=== PATIENT | male | born 1980 | race Two or more races ===

== ENCOUNTER 2019-09-21 21:49 | Inpatient (IN) | payer MEDICAID ==
[~2019-09-21] VITALS: Ht 157.5 cm; Wt 77.6 kg
[2019-09-21] MEDS ORDERED: IBUPROFEN600 M1 ORAL (22:09)
[2019-09-21] MEDS ORDERED: BACTRIM-DS1 EA ORAL (22:09)
--- NOTE | 2019-09-21 22:12 | NUR ---
ED Nurse Note: Pt ambulated to ED from home, pt c/o pain in R buttock r/t abcess, pt was seen yesterday as well as 3 days ago and he had a I&D. Pt states pain meds are ineffective. VSS, ERMD at bedside.
[2019-09-21 22:13] VITALS: BP 106/63
[2019-09-21] MEDS ORDERED: Piperacillin/Tazobactam 3.375 GM in NS 110 ML IVPB ONE (22:15)
[2019-09-21] MEDS ORDERED: Omnipaque-300 100ml vial INJ ONE (22:15)
[2019-09-21] MEDS ORDERED: Vancomycin 1.5 GM in NS 275 ML IVPB ONE (22:15)
[2019-09-21] MEDS ORDERED: Lidocaine 1% Plain 30 ml INJ ONE ×2 (22:21→22:30)
[2019-09-21] MEDS ORDERED: HYDROmorphone 1mg/ml Carpuject ONE (22:34)
[2019-09-21] MEDS ORDERED: HYDROmorphone 1mg/ml Carpuject IVP ONE (22:45)
[2019-09-21 22:48] LABS: HEMATOCRIT 43.3 % (42.0-52.0); HEMOGLOBIN 14.3 G/DL (14.2-18.0); MEAN CORPUSCULAR VOLUME 96 FL (80-99); PLATELET COUNT 167 K/UL (150-450); RED BLOOD COUNT 4.53 M/UL (4.70-6.10)
[2019-09-21 22:50] LABS: WHITE BLOOD COUNT 24.9 K/UL (4.8-10.8)
--- NOTE | 2019-09-21 22:50 | Emergency Room Report ---
History of Present Illness General Chief Complaint: Pain Source: Patient Present Illness HPI This is a 39-year-old male with no past medical history who presents with chief complaint of right buttock pain. He had pain and swelling in that area for 6-7 days now. He went to the clinic 3 times. Initially they denied in place him on antibiotics. He came back on Wednesday and got a shot of antibiotics and place him on another antibiotics. Came back today and they did another small I&D. Now he is currently taking clindamycin and Bactrim. Because it got worse he came in. He said the redness and swelling extending to the scrotum area. Very painful to walk. Pain is 9 out of 10. Worse with walking. Better with rest. Denies any fever or chills. He said they got small amount of pus with a did an I&D. He denies any other complaint. Never had this problem before. Allergies: Coded Allergies: No Known Allergies (Unverified , 09/21/19) COVID-19 Screening Contact w/high risk pt: No Recent Travel to affected area: No Experienced COVID-19 symptoms?: No Patient History Past Medical History: none, see triage record, old chart reviewed Past Surgical History: none Pertinent Family History: none Social History: Denies: smoking Immunizations: other Reviewed Nursing Documentation: PMH: Agreed; PSxH: Agreed Nursing Documentation-PMH Past Medical History: No Stated History Review of Systems Eye: Denies: eye pain, blurred vision ENT: Denies: ear pain, nose congestion, throat swelling Respiratory: Denies: cough, shortness of breath Cardiovascular: Denies: chest pain, palpitations Gastrointestinal: Denies: abdominal pain, diarrhea, nausea, vomiting Musculoskeletal: Denies: back pain, joint pain Skin: Denies: rash Neurological: Denies: headache, numbness Endocrine: Denies: increased thirst, increased urine Hematologic/Lymphatic: Denies: easy bruising All Other Systems: negative except mentioned in HPI Physical Exam Vital Signs Date Time Temp Pulse Resp B/P (MAP) Pulse Ox O2 Delivery O2 Flow Rate FiO2 09/21/19 22:00 98.2 91 18 106/63 (77) 96 Room Air Vitals normal Sp02 EP Interpretation: reviewed, normal General Appearance: well appearing, no apparent distress, alert Head: normocephalic, atraumatic Eyes: bilateral eye PERRL, bilateral eye EOMI ENT: hearing grossly normal, normal pharynx Neck: full range of motion, supple, no meningismus Respiratory: chest non-tender, lungs clear, normal breath sounds Cardiovascular #1: regular rate, rhythm, no murmur Gastrointestinal: normal bowel sounds, non tender, no mass, no organomegaly, no bruit, non-distended Genitourinary: other - Right buttock: There is induration and edema to the right buttock medially. This induration and erythema extended to the perineum and scrotal area. Warm to the touch. There is a 1 cm I&D site proximally. There is also a small puncture wound from a scalpel inferiorly about 6-7 cm. Musculoskeletal: back normal, normal range of motion, gait/station normal Psychiatric: mood/affect normal Procedures Incision and Drainage Incision and Drainage : Consent: Verbal Site: Right buttock Blade Size: 11 I & D Procedure: betadine prep, gauze wick placed Wound Location: other - Buttock Irrigated w/ Saline (ccs): 1000 Anesthesia: 1% Lidocaine Volume Anesthetic (ccs): 10 Patient Tolerated: Well Complications: None Progress Local area cleaned with Betadine. Local anesthetic of 1% lidocaine without epinephrine. I made to incision over the old I&D site. I extended longer and deeper. There was copious amount of pus expressed. Loculated area broken up. Wound was irrigated copiously. It was suction and then packed with iodoform gauze. Patient tolerated procedure without any complication. Medical Decision Making Diagnostic Impression: Primary Impression: Abscess of buttock, right Additional Impression: Sepsis Qualified Codes: A41.9 - Sepsis, unspecified organism ER Course Patient presents with buttock abscess that extends to the perineum and scrotal area. There is no crepitance. No fever or chills. I suspect that infection worse because it was not fully I&D. There was no crepitance to indicate necrotizing fasciitis. He has no history of diabetes in appearance does not appear to be Mary's disease. Since he failed outpatient antibiotics with 2 different antibiotics, will admit versus transfer for IV antibiotics. Zosyn and vancomycin given here. Patient approved for admission here. I discussed the case with Dr. Webster who will admit. CT/MRI/US Diagnostic Results CT/MRI/US Diagnostic Results : Imaging Test Ordered: CT pelvis with IV contrast Impression Read by radiologist. I also discussed the case with him. There is gas in the soft tissue of the perineal region of the right buttock area. It extends from the skin surface anteriorly and superiorly to the right hemiscrotum just lateral to the inguinal canal. There is approximately 2.9 x 4.2 x 2.7 fluid collection on the right lateral and inferior to the right testicle. Large amount of scrotal edema. Last Vital Signs Date Time Temp Pulse Resp B/P (MAP) Pulse Ox O2 Delivery O2 Flow Rate FiO2 09/21/19 22:13 98.2 18 106/63 96 Room Air 09/21/19 22:00 91 Status: improved Disposition: ADMITTED INPATIENT Condition: Serious Referrals: NOT CHOSEN CLYDE/,REFERRING (PCP) Yohannes Jackson MD Sep 21, 2019 22:50
[2019-09-21 22:57] LABS: ANION GAP 12 mmol/L (5-15); BLOOD UREA NITROGEN 22 mg/dL (7-18); CALCIUM 8.7 MG/DL (8.5-10.1); CARBON DIOXIDE 23 MMOL/L (21-32); CHLORIDE 101 MMOL/L (98-107); CREATININE 1.3 MG/DL (0.55-1.30); SODIUM 135 MMOL/L (136-145)
--- NOTE | 2019-09-21 23:12 | NUR ---
ED Nurse Note: Pt to CT
[2019-09-21] MEDS ORDERED: Morphine Sulfate 4mg/ml Inj (IV USE ONLY) IVP PRN (23:15)
--- NOTE | 2019-09-21 23:30 | NUR ---
ED Nurse Note: Pt back from CT, IV antibiotics infusing per order. Pt tolerated incision and draining by ERMD. wounds packed and covered with clean dresssing. Copious amount of pus drained, wound culture sent to lab
--- NOTE | 2019-09-21 23:41 | Diagnostic Imaging Report ---
Indication: Right buttock pain and swelling for 6 to 7 days Technique: Patient given oral contrast. IV administration nonionic contrast. Spiral acquisitions obtained through the pelvis. Multiplanar reconstructions generated. Total dose length product 323 mGycm. CTDIvol(s) 7 mGy. Dose reduction achieved using automated exposure control Comparison: none Findings: There is considerable edema of the skin of the scrotum. This also extends into the penile shaft. There is infiltration of the pubic and suprapubic subcutaneous fat as well. Numerous gas bubbles are seen within the perineum, extending from the scrotum and to the posterior perineum. There is likewise edema of the surrounding skin. No discrete fluid collections are demonstrated. Dense material is seen associated with the air bubbles in the posterior perineum. This may be packing material related to prior incision and drainage as this appears to be deep to a superficial skin defect. A few gas bubbles are seen in the bilateral gluteus cristiano musculature. The bones are unremarkable. The pelvic viscera are unremarkable. Impression: Considerable edema of the scrotal wall, penile shaft, and superficial perineum. Given stated clinical history, likely indicates cellulitis Considerable gas within the perineum and anterior inferior right pubic region. This may be related to prior incision and drainage, but given that it extends well beyond the area of apparent incision extent the possibility of infection with a gas-forming organism should also be considered. Bilateral gluteal gas bubbles. May be related to recent injections, but the possibility of infectious process in this location should also be considered. This agrees with the preliminary interpretation provided overnight by [facility]. The CT scanner at [facility] is accredited by the [employer] and the scans are performed using protocols designed to limit radiation exposure to as low as reasonably achievable to attain images of sufficient resolution adequate for diagnostic evaluation.
--- NOTE | 2019-09-22 00:20 | NUR ---
TRANSFER TO FLOOR: Patient transferred to as ordered, per Dr Webster. Report given to SAGE Jett. Belongings and medications given to . Family and or S/O informed of transfer.
[2019-09-22 00:40] VITALS: BP 96/59
--- NOTE | 2019-09-22 00:40 | NUR ---
NURSE NOTES: Patient admitted from ER via gurney. In room air. Belongings verified at bedside. No complaints of pain at this time. Right buttock I&D noted, gauze reinforced. Oriented to room and unit, call light provided. Returned demo to use call light. Needs attended. Will continue plan of care.
[2019-09-22] MEDS ORDERED: Nitroglycerin Subl 0.4mg tab SL PRN (00:45)
[2019-09-22] MEDS ORDERED: Miralax 17gm pkt ORAL PRN (00:45)
[2019-09-22] MEDS ORDERED: Albuterol/Ipratropium 3ml neb HHN PRN (00:45)
[2019-09-22] MEDS ORDERED: CLINDAMYCIN HC150 MG ORAL (01:00)
--- NOTE | 2019-09-22 03:30 | NUR ---
HAND-OFF: Report given to Neal CAZARES.
--- NOTE | 2019-09-22 03:31 | NUR ---
NURSE NOTES: Receive pt in the bed in stable condition;awake ,a&o x4, verbal, no complain of pain, no sob ,and vitals are stable. Pt is in room air, no fall and aspiration risk. Bed in the lower position and locked. Call light within reach. We will keep monitoring.
[2019-09-22 04:00] VITALS: BP 94/53
--- NOTE | 2019-09-22 07:15 | NUR ---
HAND-OFF: Report given to SAGE ochoa.
--- NOTE | 2019-09-22 07:20 | NUR ---
NURSE NOTES: Received report from SAGE Moore and preceptor SAGE Sandoval. Patient A&Ox4, in bed eating breakfast. On room air, no signs of distress or labored breathing. IV intact, patent, and saline locked. Denies pain at this time. Bed in lowest position with call light in reach. Will continue with plan of care.
[2019-09-22 08:00] VITALS: BP 102/65
[2019-09-22] MEDS: Cefepime HCl 2 GM in D5W 110 ML IV SCH ×2 (09:58→21:05)
[2019-09-22] MEDS: Heparin 5000 units/ml inj SUBQ SCH ×2 (09:59→21:00)
[2019-09-22] MEDS: Vancomycin 750mg/NS 275ml IVPB SCH ×4 (10:52→21:42)
[2019-09-22 12:00] VITALS: BP 102/66
--- NOTE | 2019-09-22 13:27 | Consultation ---
History of Present Illness General Date patient seen: Sep 22, 2019 Chief Complaint: Pain Present Illness HPI 39-year-old male with no past medical history who presents with chief complaint of right buttock pain. He had a small I&D at an urgent care. He presented to ER because it got worse and the redness and swelling extending to the scrotum area. Very painful to walk. Denies any fever or chills. He said they got small amount of pus with a did an I&D. He had leukocytosis and got admitted for further treatment. Allergies: Coded Allergies: No Known Allergies (Unverified , 09/21/19) Medication History Scheduled Clindamycin Hcl* (Clindamycin Hcl*), 2 TAB ORAL Q12HR, (Reported) Ibuprofen* (Motrin*), 600 MG ORAL Q6H, (Reported) Trimethoprim/Sulfamethoxazole (Bactrim Ds Tablet), 1 TAB ORAL TWICE A DAY, ( Reported) Patient History Healthcare decision maker Resuscitation status Full Code Advanced Directive on File Review of Systems All Other Systems: negative except mentioned in HPI Physical Exam General Appearance: WD/WN, no apparent distress Lines, tubes and drains: peripheral HEENT: atraumatic Neck: non-tender, supple Respiratory/Chest: chest wall non-tender, normal breath sounds Cardiovascular/Chest: normal peripheral pulses, regular rhythm Abdomen: normal bowel sounds, non tender Extremities: normal range of motion Last 24 Hour Vital Signs Date Time Temp Pulse Resp B/P (MAP) Pulse Ox O2 Delivery O2 Flow Rate FiO2 09/22/19 12:00 98.5 78 20 102/66 (78) 96 09/22/19 11:56 78 18 97 Room Air 21 09/22/19 09:00 Room Air 09/22/19 08:00 98.3 87 19 102/65 (77) 98 09/22/19 04:00 98.4 78 18 94/53 (67) 96 09/22/19 01:12 Room Air 09/22/19 00:40 98.0 78 18 96/59 (71) 96 09/22/19 00:20 98.2 18 106/63 96 Room Air 09/21/19 22:13 98.2 18 106/63 96 Room Air 09/21/19 22:00 98.2 91 18 106/63 (77) 96 Room Air Intake and Output 09/21/19 09/22/19 19:00 07:00 Intake Total 335 ml Output Total 150 ml Balance 185 ml Intake Oral 60 ml IV Total 275 ml Output Urine Total 150 ml # Voids 1 Laboratory Tests Test 09/21/19 22:33 White Blood Count 24.9 K/UL (4.8-10.8) *H Red Blood Count 4.53 M/UL (4.70-6.10) L Hemoglobin 14.3 G/DL (14.2-18.0) Hematocrit 43.3 % (42.0-52.0) Mean Corpuscular Volume 96 FL (80-99) Mean Corpuscular Hemoglobin 31.5 PG (27.0-31.0) H Mean Corpuscular Hemoglobin Concent 32.9 G/DL (32.0-36.0) Red Cell Distribution Width 12.0 % (11.6-14.8) Platelet Count 167 K/UL (150-450) Mean Platelet Volume 10.8 FL (6.5-10.1) H Neutrophils (%) (Auto) % (45.0-75.0) Lymphocytes (%) (Auto) % (20.0-45.0) Monocytes (%) (Auto) % (1.0-10.0) Eosinophils (%) (Auto) % (0.0-3.0) Basophils (%) (Auto) % (0.0-2.0) Neutrophils % (Manual) 86 % (45-75) H Lymphocytes % (Manual) 1 % (20-45) L Monocytes % (Manual) 5 % (1-10) Eosinophils % (Manual) 0 % (0-3) Basophils % (Manual) 0 % (0-2) Band Neutrophils 8 % (0-8) Platelet Estimate Decreased L Platelet Morphology Normal Red Blood Cell Morphology Normal Sodium Level 135 MMOL/L (136-145) L Potassium Level 4.0 MMOL/L (3.5-5.1) Chloride Level 101 MMOL/L (98-107) Carbon Dioxide Level 23 MMOL/L (21-32) Anion Gap 12 mmol/L (5-15) Blood Urea Nitrogen 22 mg/dL (7-18) H Creatinine 1.3 MG/DL (0.55-1.30) Estimat Glomerular Filtration Rate > 60 mL/min (>60) Glucose Level 184 MG/DL (74-106) H Calcium Level 8.7 MG/DL (8.5-10.1) Microbiology Date/Time Source Procedure Growth Status 09/21/19 22:33 Other(Specify in comment) Gram Stain - Final Resulted 09/21/19 22:33 Other(Specify in comment) Wound Culture Pending Resulted Height (Feet): 5 Height (Inches): 3.00 Weight (Pounds): 175 Medications Current Medications Medications (Trade) Dose Ordered Sig/Jasiel Route PRN Reason Start Time Stop Time Status Last Admin Dose Admin Acetaminophen (Tylenol) 650 mg Q4H PRN ORAL fever 09/22/19 00:45 10/22/19 00:44 09/22/19 09:57 Albuterol/ Ipratropium (Albuterol/ Ipratropium) 3 ml Q4H PRN HHN Shortness of Breath 09/22/19 00:45 09/27/19 00:44 Cefepime HCl 2 gm/ Dextrose 110 ml @ 220 mls/hr EVERY 12 HOURS IV 09/22/19 09:00 09/29/19 08:59 09/22/19 09:58 Dextrose (Dextrose 50%) 25 ml Q30M PRN IV Hypoglycemia 09/22/19 00:45 12/21/19 00:44 Dextrose (Dextrose 50%) 50 ml Q30M PRN IV Hypoglycemia 09/22/19 00:45 12/21/19 00:44 Heparin Sodium (Porcine) (Heparin 5000 units/ml) 5,000 units EVERY 12 HOURS SUBQ 09/22/19 09:00 11/06/19 08:59 09/22/19 09:59 Morphine Sulfate (Morphine Sulfate) 4 mg Q3H PRN IVP For Pain 09-2109/22/19 01:15 09/29/19 01:14 Nitroglycerin (Ntg) 0.4 mg Every 5 Minutes PRN SL Prn Chest Pain 09/22/19 00:45 10/22/19 00:44 Ondansetron HCl (Zofran) 4 mg Q6H PRN IVP Nausea & Vomiting 09/22/19 00:45 10/22/19 00:44 Polyethylene Glycol (Miralax) 17 gm DAILYPRN PRN ORAL Constipation 09/22/19 00:45 10/22/19 00:44 Temazepam (Restoril) 15 mg HSPRN PRN ORAL Insomnia 09/22/19 00:45 09/29/19 00:44 Vancomycin HCl (Vanco rx to dose) 1 ea DAILY PRN MISC per pharmacy 09/22/19 01:15 10/22/19 01:14 Vancomycin HCl 750 mg/Sodium Chloride 275 ml @ 183.333 mls/hr Q12H IVPB 09/22/19 10:00 09/27/19 09:59 09/22/19 10:52 Assessment/Plan Problem List: (1) Sepsis ICD Codes: A41.9 - Sepsis, unspecified organism SNOMED: 52820311 Qualifiers: Qualified Codes: A41.9 - Sepsis, unspecified organism (2) Abscess of buttock, right ICD Codes: L02.31 - Cutaneous abscess of buttock SNOMED: 15538215 Assessment/Plan: surgery and ID evaluation broad spectrum abx pain management dvt prophylaxis check labs daily Christiano Thomas MD Sep 22, 2019 13:27
--- NOTE | 2019-09-22 14:02 | NUR ---
CASE MANAGEMENT:INITIAL REVIEW 39 YR OLD MALE WALKED IN FROM HOME CC;PAIN SI;BUTTOCK ABSCESS. SEPSIS. 98.2 91 18 96/59 96% ON RA WBC 24.9 NA 135 BUN [address] ~ Considerable edema of the scrotal wall, penile shaft, and superficial perineum. Given stated clinical history, likely indicates cellulitis. Bilateral gluteal gas bubbles. May be related to recent injections, but the possibility of infectious process in this location should also be considered. IS;VANCOMYCIN IV ONCE ZOSYN IV ONCE ZOFRAN IV ONCE DILAUDID IV ONCE ADMITTED TO MED SURG @ 2302 ON 09/21/2019 MED SURG STATUS DCP;PATIENT IS FROM HOME
[2019-09-22] MEDS: metroNIDAZOLE 500mg tab ORAL SCH ×2 (15:01→21:05)
[2019-09-22 16:00] VITALS: BP 102/63
--- NOTE | 2019-09-22 16:31 | Consultation ---
History of Present Illness General Date patient seen: Sep 22, 2019 Reason for Hospitalization: Pain Present Illness HPI This is a 39-year-old male with no past medical history who presents with worsening scrotal perineal and buttock pain. Patient states initially began approximately a week ago and he went to outside clinic a few times for evaluation initially placed on antibiotics but continually worsening. Recently had a incision and drainage done at the clinic but felt it was adequate and therefore came to emergency department [facility] for evaluation as the edema swelling persistently got worse. Surgery called to evaluate. Patient noted to have leukocytosis, abnormal labs, pelvic CT as below. Patient seen, patient evaluated, chart reviewed Allergies: Coded Allergies: No Known Allergies (Unverified , 09/21/19) COVID-19 Screening Contact w/high risk pt: No Recent Travel to affected area: No Experienced COVID-19 symptoms?: No Medication History Scheduled Clindamycin Hcl* (Clindamycin Hcl*), 2 TAB ORAL Q12HR, (Reported) Ibuprofen* (Motrin*), 600 MG ORAL Q6H, (Reported) Trimethoprim/Sulfamethoxazole (Bactrim Ds Tablet), 1 TAB ORAL TWICE A DAY, ( Reported) Patient History History Provided By: Patient, Medical Record, PMD Healthcare decision maker Resuscitation status Full Code Advanced Directive on File Past Medical/Surgical History Past Medical/Surgical History: (1) Sepsis (2) Abscess of buttock, right Review of Systems Review of Symptoms General ROS: no weight loss or fever Psychological ROS: no depression or mood changes, no memory loss Ophthalmic ROS: no visual changes or eye irritation ENT ROS: no nasal congestion, hearing loss, dizziness Allergy and Immunology ROS: no allergic symptoms or urticaria Hematological and Lymphatic ROS: no swollen glands, unusual bleeding or bruising Endocrine ROS: no polyuria, polydipsia, weight changes, temperature intolerance Respiratory ROS: no cough, shortness of breath, or wheezing Cardiovascular ROS: no chest pain or dyspnea on exertion Gastrointestinal ROS: denies abdominal pain, bright red blood in stool. Buttock pain perineal pain Musculoskeletal ROS: no myalgias or arthralgias Neurological ROS: no TIA or stroke symptoms Dermatological ROS: no new or changing skin lesions, rashes or pruritis Physical Exam Physical Exam General appearance: alert, cooperative, no distress, appears stated age Head: Normocephalic, without obvious abnormality, atraumatic Eyes: conjunctivae/corneas clear. PERRL, EOM's intact. Fundi benign Throat: Lips, mucosa, and tongue normal. Teeth and gums normal Neck: supple, symmetrical, trachea midline, no adenopathy, thyroid: not enlarged, symmetric, no tenderness/mass/nodules, no carotid bruit and no JVD Lungs: clear to auscultation bilaterally Heart: regular rate and rhythm, S1, S2 normal, no murmur, click, rub or gallop Abdomen: soft, non-tender. Bowel sounds normal. No masses, no organomegaly Extremities: extremities normal, atraumatic, no cyanosis or edema Pulses: 2+ and symmetric Skin: Scrotal perineal edema with little bit of cellulitis right buttock I&D site noted packing still in place from prior I&D done at outside facility. Neurologic: Grossly normal Last 24 Hour Vital Signs Date Time Temp Pulse Resp B/P (MAP) Pulse Ox O2 Delivery O2 Flow Rate FiO2 09/22/19 12:00 98.5 78 20 102/66 (78) 96 09/22/19 11:56 78 18 97 Room Air 21 09/22/19 09:00 Room Air 09/22/19 08:00 98.3 87 19 102/65 (77) 98 09/22/19 04:00 98.4 78 18 94/53 (67) 96 09/22/19 01:12 Room Air 09/22/19 00:40 98.0 78 18 96/59 (71) 96 09/22/19 00:20 98.2 18 106/63 96 Room Air 09/21/19 22:13 98.2 18 106/63 96 Room Air 09/21/19 22:00 98.2 91 18 106/63 (77) 96 Room Air Intake and Output 09/21/19 09/22/19 19:00 07:00 Intake Total 335 ml Output Total 150 ml Balance 185 ml Intake Oral 60 ml IV Total 275 ml Output Urine Total 150 ml # Voids 1 Laboratory Tests Test 09/21/19 22:33 White Blood Count 24.9 K/UL (4.8-10.8) *H Red Blood Count 4.53 M/UL (4.70-6.10) L Hemoglobin 14.3 G/DL (14.2-18.0) Hematocrit 43.3 % (42.0-52.0) Mean Corpuscular Volume 96 FL (80-99) Mean Corpuscular Hemoglobin 31.5 PG (27.0-31.0) H Mean Corpuscular Hemoglobin Concent 32.9 G/DL (32.0-36.0) Red Cell Distribution Width 12.0 % (11.6-14.8) Platelet Count 167 K/UL (150-450) Mean Platelet Volume 10.8 FL (6.5-10.1) H Neutrophils (%) (Auto) % (45.0-75.0) Lymphocytes (%) (Auto) % (20.0-45.0) Monocytes (%) (Auto) % (1.0-10.0) Eosinophils (%) (Auto) % (0.0-3.0) Basophils (%) (Auto) % (0.0-2.0) Neutrophils % (Manual) 86 % (45-75) H Lymphocytes % (Manual) 1 % (20-45) L Monocytes % (Manual) 5 % (1-10) Eosinophils % (Manual) 0 % (0-3) Basophils % (Manual) 0 % (0-2) Band Neutrophils 8 % (0-8) Platelet Estimate Decreased L Platelet Morphology Normal Red Blood Cell Morphology Normal Sodium Level 135 MMOL/L (136-145) L Potassium Level 4.0 MMOL/L (3.5-5.1) Chloride Level 101 MMOL/L (98-107) Carbon Dioxide Level 23 MMOL/L (21-32) Anion Gap 12 mmol/L (5-15) Blood Urea Nitrogen 22 mg/dL (7-18) H Creatinine 1.3 MG/DL (0.55-1.30) Estimat Glomerular Filtration Rate > 60 mL/min (>60) Glucose Level 184 MG/DL (74-106) H Calcium Level 8.7 MG/DL (8.5-10.1) Microbiology Date/Time Source Procedure Growth Status 09/21/19 22:33 Other(Specify in comment) Gram Stain - Final Resulted 09/21/19 22:33 Other(Specify in comment) Wound Culture Pending Resulted Height (Feet): 5 Height (Inches): 3.00 Weight (Pounds): 175 Medications Current Medications Medications (Trade) Dose Ordered Sig/Jasiel Route PRN Reason Start Time Stop Time Status Last Admin Dose Admin Acetaminophen (Tylenol) 650 mg Q4H PRN ORAL fever 09/22/19 00:45 10/22/19 00:44 09/22/19 09:57 Albuterol/ Ipratropium (Albuterol/ Ipratropium) 3 ml Q4H PRN HHN Shortness of Breath 09/22/19 00:45 09/27/19 00:44 Cefepime HCl 2 gm/ Dextrose 110 ml @ 220 mls/hr EVERY 12 HOURS IV 09/22/19 09:00 09/29/19 08:59 09/22/19 09:58 Dextrose (Dextrose 50%) 25 ml Q30M PRN IV Hypoglycemia 09/22/19 00:45 12/21/19 00:44 Dextrose (Dextrose 50%) 50 ml Q30M PRN IV Hypoglycemia 09/22/19 00:45 12/21/19 00:44 Heparin Sodium (Porcine) (Heparin 5000 units/ml) 5,000 units EVERY 12 HOURS SUBQ 09/22/19 09:00 11/06/19 08:59 09/22/19 09:59 Metronidazole (Flagyl) 500 mg Q8HR ORAL 09/22/19 14:15 09/29/19 14:14 09/22/19 15:01 Morphine Sulfate (Morphine Sulfate) 4 mg Q3H PRN IVP For Pain 09-2109/22/19 01:15 09/29/19 01:14 Nitroglycerin (Ntg) 0.4 mg Every 5 Minutes PRN SL Prn Chest Pain 09/22/19 00:45 10/22/19 00:44 Ondansetron HCl (Zofran) 4 mg Q6H PRN IVP Nausea & Vomiting 09/22/19 00:45 10/22/19 00:44 Polyethylene Glycol (Miralax) 17 gm DAILYPRN PRN ORAL Constipation 09/22/19 00:45 10/22/19 00:44 Temazepam (Restoril) 15 mg HSPRN PRN ORAL Insomnia 09/22/19 00:45 09/29/19 00:44 Vancomycin HCl (Vanco rx to dose) 1 ea DAILY PRN MISC per pharmacy 09/22/19 01:15 10/22/19 01:14 Vancomycin HCl 750 mg/Sodium Chloride 275 ml @ 183.333 mls/hr Q12H IVPB 09/22/19 10:00 09/27/19 09:59 09/22/19 10:52 Assessment/Plan Problem List: (1) Sepsis Assessment & Plan: Patient presents with abnormal labs, leukocytosis, scrotal cellulitis perineal cellulitis active infection. On evaluation at bedside patient continues to have packing left from his I&D which was not removed or cared for since incision and drainage. He states is very painful feels are comfortable. Packing dressings were removed by myself. No purulent drainage noted. Some cellulitis and edema around the perineum noted. Likely infectious source is this buttock abscess that is now perineal cellulitis as well. The CT was reviewed and gas identified but this is not seem like a Mary's gangrene or other severe process as it seems like he had a perirectal abscess that was drained and adequately furthermore placed on care plan with packing and dressings which have not been completed since. Now it is worsened. Will need to monitor closely. IV antibiotics. IV fluids. Discussed care plan with patient. Unfortunately he failed outpatient management and now requires inpatient care plan. May proceed with a larger incision and drainage if does not improve over the next 24 hours. Will monitor closely. Thank you for let me participate in patient's care ICD Codes: A41.9 - Sepsis, unspecified organism SNOMED: [id number] Qualifiers: Qualified Codes: A41.9 - Sepsis, unspecified organism (2) Abscess of buttock, right Assessment & Plan: Findings: There is considerable edema of the skin of the scrotum. This also extends into the penile shaft. There is infiltration of the pubic and suprapubic subcutaneous fat as well. Numerous gas bubbles are seen within the perineum, extending from the scrotum and to the posterior perineum. There is likewise edema of the surrounding skin. No discrete fluid collections are demonstrated. Dense material is seen associated with the air bubbles in the posterior perineum. This may be packing material related to prior incision and drainage as this appears to be deep to a superficial skin defect. A few gas bubbles are seen in the bilateral gluteus cristiano musculature. The bones are unremarkable. The pelvic viscera are unremarkable. Impression: Considerable edema of the scrotal wall, penile shaft, and superficial perineum. Given stated clinical history, likely indicates cellulitis Considerable gas within the perineum and anterior inferior right pubic region. This may be related to prior incision and drainage, but given that it extends well beyond the area of apparent incision extent the possibility of infection with a gas- forming organism should also be considered. Bilateral gluteal gas bubbles. May be related to recent injections, but the possibility of infectious process in this location should also be considered. ICD Codes: L02.31 - Cutaneous abscess of buttock SNOMED: [id number] Jerson Owens Sep 22, 2019 16:31
[2019-09-22] MEDS: Morphine Sulfate 4mg/ml Inj (IV USE ONLY) IVP PRN (18:21)
--- NOTE | 2019-09-22 19:20 | NUR ---
NURSE NOTES: Received patient on bed, awake and verbally responsive. respirations even and unlabored. no sob. with iv line on the right ac , saline lock. with urinal on the bedside. with complaints of discomfort on the surgical site.per patient" it is tolerable and refused to have pain medicine". bed locked and in lowest position. call light and light button within easy reach. reiterated to ask for assistance. will continue plan of care.
--- NOTE | 2019-09-22 19:40 | NUR ---
HAND-OFF: Report given to Anjali Sherman RN. Rounds done.
[2019-09-22 20:00] VITALS: BP 112/65
--- NOTE | 2019-09-22 22:38 | History & Physical ---
History and Physical History & Physicial Sheldon Webster MD Sep 22, 2019 22:38
[2019-09-23] VITALS: BP 109/76
[2019-09-23] MEDS: Morphine Sulfate 4mg/ml Inj (IV USE ONLY) IVP PRN ×3 (00:21→17:28)
[2019-09-23] MEDS ORDERED: Vancomycin 1 GM in D5W 275 ML IV SCH (00:30)
[2019-09-23 04:00] VITALS: BP 110/76
--- NOTE | 2019-09-23 04:30 | History and Physical Report ---
DATE OF ADMISSION: 09/21/2019 CHIEF COMPLAINT: Right buttock abscess. HISTORY OF PRESENT ILLNESS: A 39-year-old gentleman, denies any past medical history and past surgical history, who presents to the hospital complaining of worsening of the scrotum and the perianal pain. The patient initially about a week ago went to the outside clinic a few times for evaluation. Initially placed on antibiotics or antibiotic. However, his symptoms got progressively worsening and he continued to have worsening of pain on the buttock area, had an incision and drainage at the clinic, but they felt that it was not adequate and subsequently the patient was advised to come to the emergency department. Shortly after initial evaluation in the emergency, the patient was noted to be leukocytosis with WBC of 24.9 and subsequently, the patient was admitted to the hospital with right buttock abscess as well as perineum infection. PAST MEDICAL/PAST SURGICAL HISTORY: None. MEDICATIONS: At home significant for clindamycin, ibuprofen and Bactrim. ALLERGIES: No known drug allergies. SOCIAL HISTORY: The patient socially drinks. Occasionally smokes. Denies any substance abuse. 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 FAMILY HISTORY: Noncontributory. REVIEW OF SYSTEMS: Mostly as above. Denies any dysuria, frequency, hematuria. Denies any hemoptysis or hematochezia. Denies any bright red blood per rectum. PHYSICAL EXAMINATION: VITAL SIGNS: On admission, temperature 98.2, pulse of 91, respirations 18, and blood pressure 106/63. GENERAL: The patient is awake and responsive, in no acute distress. HEAD AND NECK EXAMINATION: Pupils are equal and reactive to light. Extraocular movements intact. Neck was supple. No JVD. LUNGS: Clear. No wheezing or rales. HEART: S1, S2. Regular rhythm. No gallops. ABDOMEN: Soft and nontender. Mildly obese. EXTREMITIES: No cyanosis, clubbing, or edema. PELVIC: The patient has right buttock area drainage abscess as well as scrotum was erythema and edematous. NEUROLOGIC: SEWER TAPPER II through XII are grossly normal. The patient moving all extremities. Gait is intact. LABORATORY DATA: On admission from the emergency department, WBC of 2.24, hemoglobin of 14, hematocrit 43, and platelets is 167. Sodium 135, potassium 4.0, chloride 101, bicarb 23, BUN 22, creatinine 1.3, glucose is 184, calcium is 8.7. Pelvic CT showed that the patient has chronic severe edema of the scrotum wall, penile shaft and superficial perineum given the date, clinical history like to be indicated abscess cellulitis consistent with gas within the perineum and anterior-inferior right pubic region. These may be related to the prior incision and drainage, but given that the extent of the well beyond the area of planned incision, extended the possibility of infection with a gas for maintaining organisms, bilateral gluteal gas bubble and may be related to recent incision. ASSESSMENT: Right buttock abscess and perineum cellulitis. PLAN: Admit the patient to medical floor. We will follow up with the cultures, broad-spectrum antibiotic with vancomycin, cefepime and Flagyl. Remarkable for cultures and laboratory in the morning. Dr. Thomas, Pulmonary/Critical Care and Dr. Owens consultation from surgery. Code status is Full Code. DVT prophylaxis and SCD. Sheldon Webster M.D. DR: Letty JOB#: [id number] CC:
[2019-09-23] MEDS: metroNIDAZOLE 500mg tab ORAL SCH ×3 (05:57→22:00)
--- NOTE | 2019-09-23 07:58 | NUR ---
NURSE NOTES: Handoff received from MADDISON CAZARES. Patient is awake and alert, no distress noted. Breathing is even and unlabored on room air. Patient reports 0/10 pain. Right AC IV is patent and asymptomatic. Right buttock dressing changed 09/[address] Owens. Bed is low and locked, side rails up x2, call light is within reach.
[2019-09-23 07:59] LABS: HEMATOCRIT 39.4 % (42.0-52.0); HEMOGLOBIN 13.5 G/DL (14.2-18.0); MEAN CORPUSCULAR VOLUME 91 FL (80-99); PLATELET COUNT 200 K/UL (150-450); RED BLOOD COUNT 4.31 M/UL (4.70-6.10); RED CELL DISTRIBUTION WIDTH 11.4 % (11.6-14.8)
[2019-09-23 08:00] VITALS: BP 104/60
--- NOTE | 2019-09-23 08:00 | NUR ---
NURSE NOTES: Received call from lab stating that patient's WBC is 37.8. Notified Dr. Owens and awaiting new orders.
[2019-09-23 08:04] LABS: WHITE BLOOD COUNT 37.8 K/UL (4.8-10.8)
[2019-09-23 08:19] LABS: PHOSPHORUS 3.8 MG/DL (2.5-4.9)
--- NOTE | 2019-09-23 08:28 | NUR ---
NURSE NOTES: Patient left for CT in stable condition.
[2019-09-23 08:31] LABS: INR 0.9 (0.9-1.1)
[2019-09-23 08:43] LABS: ALANINE AMINOTRANSFERASE 157 U/L (12-78); ALBUMIN 2.2 G/DL (3.4-5.0); ALBUMIN/GLOBULIN RATIO 0.5 (1.0-2.7); ALKALINE PHOSPHATASE 240 U/L (46-116); ANION GAP 12 mmol/L (5-15); ASPARTATE AMINO TRANSFERASE 24 U/L (15-37); BILIRUBIN,TOTAL 0.3 MG/DL (0.2-1.0); BLOOD UREA NITROGEN 18 mg/dL (7-18); CARBON DIOXIDE 21 MMOL/L (21-32); CHLORIDE 102 MMOL/L (98-107); CREATININE 0.8 MG/DL (0.55-1.30); POTASSIUM 4.1 MMOL/L (3.5-5.1); SODIUM 135 MMOL/L (136-145)
--- NOTE | 2019-09-23 08:55 | Diagnostic Imaging Report ---
EXAM: CT Chest Without Intravenous Contrast CLINICAL HISTORY: SOB TECHNIQUE: Axial computed tomography images of the chest without intravenous contrast. CTDI is 45 mGy and DLP is 72 mGy-cm. One or more of the following dose reduction techniques were used: automated exposure control, adjustment of the mA and/or kV according to patient size, use of iterative reconstruction technique. COMPARISON: No relevant prior studies available. FINDINGS: Lungs: There is mild left basilar atelectasis. No consolidating infiltrates are identified. Pleural space: Unremarkable. No pneumothorax. No significant effusion. Heart: Unremarkable. No cardiomegaly. No significant pericardial effusion. Bones/joints: Unremarkable. No acute fracture. No dislocation. Soft tissues: Unremarkable. Vasculature: Unremarkable. No thoracic aortic aneurysm. Lymph nodes: Unremarkable. No enlarged lymph nodes. IMPRESSION: There is mild left basilar atelectasis. No consolidating infiltrates are identified.
[2019-09-23] MEDS: Cefepime HCl 2 GM in D5W 110 ML IV SCH ×2 (09:10→22:00)
[2019-09-23] MEDS: Heparin 5000 units/ml inj SUBQ SCH ×2 (09:11→22:00)
--- NOTE | 2019-09-23 11:43 | NUR ---
NURSE NOTES: MRSA swab collected and brought to lab, awaiting results.
--- NOTE | 2019-09-23 11:45 | NUR ---
NURSE NOTES: Received call from [facility] pharmacist. She said she is aware of vanco through and to hang vancomycin 750mg for the patient and will adjust the dose after that. payroll accounting manager endorsed to assigned nurse Whitney.
[2019-09-23] MEDS: Vancomycin 750mg/NS 275ml IVPB SCH ×2 (11:54)
[2019-09-23 12:00] VITALS: BP 111/59
--- NOTE | 2019-09-23 13:01 | Internal Med Progress Note ---
Subjective Date of Service: Sep 23, 2019 Physician Name Ravi Lopez Attending Physician Sheldon Webster MD Current Medications Medications (Trade) Dose Ordered Sig/Jasiel Route PRN Reason Start Time Stop Time Status Last Admin Dose Admin Acetaminophen (Tylenol) 650 mg Q4H PRN ORAL fever 09/22/19 00:45 10/22/19 00:44 09/22/19 09:57 Albuterol/ Ipratropium (Albuterol/ Ipratropium) 3 ml Q4H PRN HHN Shortness of Breath 09/22/19 00:45 09/27/19 00:44 Cefepime HCl 2 gm/ Dextrose 110 ml @ 220 mls/hr EVERY 12 HOURS IV 09/22/19 09:00 09/29/19 08:59 09/23/19 09:10 Dextrose (Dextrose 50%) 25 ml Q30M PRN IV Hypoglycemia 09/22/19 00:45 12/21/19 00:44 Dextrose (Dextrose 50%) 50 ml Q30M PRN IV Hypoglycemia 09/22/19 00:45 12/21/19 00:44 Heparin Sodium (Porcine) (Heparin 5000 units/ml) 5,000 units EVERY 12 HOURS SUBQ 09/22/19 09:00 11/06/19 08:59 09/23/19 09:11 Metronidazole (Flagyl) 500 mg Q8HR ORAL 09/22/19 14:15 09/29/19 14:14 09/23/19 05:57 Morphine Sulfate (Morphine Sulfate) 4 mg Q3H PRN IVP For Pain 09-2109/22/19 01:15 09/29/19 01:14 09/23/19 11:59 Nitroglycerin (Ntg) 0.4 mg Every 5 Minutes PRN SL Prn Chest Pain 09/22/19 00:45 10/22/19 00:44 Ondansetron HCl (Zofran) 4 mg Q6H PRN IVP Nausea & Vomiting 09/22/19 00:45 10/22/19 00:44 Polyethylene Glycol (Miralax) 17 gm DAILYPRN PRN ORAL Constipation 09/22/19 00:45 10/22/19 00:44 Temazepam (Restoril) 15 mg HSPRN PRN ORAL Insomnia 09/22/19 00:45 09/29/19 00:44 Vancomycin HCl (Vanco rx to dose) 1 ea DAILY PRN MISC per pharmacy 09/22/19 01:15 10/22/19 01:14 Vancomycin HCl 750 mg/Sodium Chloride 275 ml @ 183.333 mls/hr Q12H IVPB 09/22/19 10:00 09/23/19 14:00 09/23/19 11:54 Vancomycin/Sodium Chloride 275 ml @ 125 mls/hr Q12H IVPB 09/23/19 18:00 09/28/19 17:59 Allergies: Coded Allergies: No Known Allergies (Unverified , 09/21/19) ROS Limited/Unobtainable: No Constitutional: Reports: no symptoms HEENT: Reports: no symptoms Cardiovascular: Reports: no symptoms Respiratory: Reports: no symptoms Gastrointestinal/Abdominal: Reports: no symptoms Genitourinary: Reports: no symptoms Neurologic/Psychiatric: Reports: no symptoms Subjective 39 YO M admitted with right buttock abscess and cellulitis perineum. Cover for Int Ciaran-DR Webster Objective Last Vital Signs Date Time Temp Pulse Resp B/P (MAP) Pulse Ox O2 Delivery O2 Flow Rate FiO2 09/23/19 09:00 Room Air 09/23/19 08:00 97.7 84 20 104/60 (75) 94 09/22/19 20:09 21 Laboratory Tests Test 09/23/19 07:35 09/23/19 09:30 White Blood Count 37.8 K/UL (4.8-10.8) #*H Red Blood Count 4.31 M/UL (4.70-6.10) L Hemoglobin 13.5 G/DL (14.2-18.0) L Hematocrit 39.4 % (42.0-52.0) L Mean Corpuscular Volume 91 FL (80-99) Mean Corpuscular Hemoglobin 31.4 PG (27.0-31.0) H Mean Corpuscular Hemoglobin Concent 34.3 G/DL (32.0-36.0) Red Cell Distribution Width 11.4 % (11.6-14.8) L Platelet Count 200 K/UL (150-450) Mean Platelet Volume 7.8 FL (6.5-10.1) Neutrophils (%) (Auto) % (45.0-75.0) Lymphocytes (%) (Auto) % (20.0-45.0) Monocytes (%) (Auto) % (1.0-10.0) Eosinophils (%) (Auto) % (0.0-3.0) Basophils (%) (Auto) % (0.0-2.0) Neutrophils % (Manual) Pending Lymphocytes % (Manual) Pending Platelet Estimate Pending Platelet Morphology Pending Erythrocyte Sedimentation Rate 76 MM/HR (0-15) H Prothrombin Time 9.9 SEC (9.30-11.50) Prothromb Time International Ratio 0.9 (0.9-1.1) Activated Partial Thromboplast Time 28 SEC (23-33) Sodium Level 135 MMOL/L (136-145) L Potassium Level 4.1 MMOL/L (3.5-5.1) Chloride Level 102 MMOL/L (98-107) Carbon Dioxide Level 21 MMOL/L (21-32) Anion Gap 12 mmol/L (5-15) Blood Urea Nitrogen 18 mg/dL (7-18) Creatinine 0.8 MG/DL (0.55-1.30) Estimat Glomerular Filtration Rate > 60 mL/min (>60) Glucose Level 136 MG/DL (74-106) H Lactic Acid Level 1.00 mmol/L (0.4-2.0) Calcium Level 9.0 MG/DL (8.5-10.1) Phosphorus Level 3.8 MG/DL (2.5-4.9) Magnesium Level 1.9 MG/DL (1.8-2.4) Total Bilirubin 0.3 MG/DL (0.2-1.0) Aspartate Amino Transf (AST/SGOT) 24 U/L (15-37) Alanine Aminotransferase (ALT/SGPT) 157 U/L (12-78) H Alkaline Phosphatase 240 U/L (46-116) H C-Reactive Protein, Quantitative 25.1 mg/dL (0.00-0.90) H Total Protein 6.7 G/DL (6.4-8.2) Albumin 2.2 G/DL (3.4-5.0) L Globulin 4.5 g/dL Albumin/Globulin Ratio 0.5 (1.0-2.7) L Vancomycin Level Trough 5.9 ug/mL (5.0-12.0) Microbiology Date/Time Source Procedure Growth Status 09/21/19 22:33 Other(Specify in comment) Gram Stain - Final Resulted 09/21/19 22:33 Wound Culture - Preliminary Staphylococcus Sp Coag Neg Resulted Intake and Output 09/22/19 09/23/19 18:59 06:59 Intake Total 985 ml 400 ml Output Total 550 ml 650 ml Balance 435 ml -250 ml Intake Oral 600 ml 400 ml IV Total 385 ml Output Urine Total 550 ml 650 ml # Voids 2 3 Objective PHYSICAL EXAMINATION: GENERAL: The patient is awake and responsive, in no acute distress. HEAD AND NECK EXAMINATION: Pupils are equal and reactive to light. Extraocular movements intact. Neck was supple. No JVD. LUNGS: Clear. No wheezing or rales. HEART: S1, S2. Regular rhythm. No gallops. ABDOMEN: Soft and nontender. Mildly obese. EXTREMITIES: No cyanosis, clubbing, or edema. PELVIC: The patient has right buttock area drainage abscess as well as scrotum was erythema and edematous. NEUROLOGIC: THIRD MATE II through XII are grossly normal. The patient moving all extremities. Gait is intact. Assessment/Plan Problem List: (1) Leukocytosis Assessment & Plan: Due to abscess/cellulitis; continue antibiotics per ID (2) Cellulitis, perineum Assessment & Plan: continue vanco, flagyl and cefepime per ID=Dr Moreau (3) Abscess of buttock, right Assessment & Plan: May require Incision and drainage. See surgery note=Ravi Balderas MD Sep 23, 2019 13:01
[2019-09-23 16:00] VITALS: BP 109/67
[2019-09-23] MEDS: Vancomycin 1.25gm/NS Premix 275 ML IVPB SCH (17:21)
--- NOTE | 2019-09-23 19:04 | NUR ---
NURSE NOTES:Spoke with Dr. Owens about patient's WBC level. MD is aware of patient's dressing.
--- NOTE | 2019-09-23 19:24 | NUR ---
HAND-OFF: Report given to Anthony CAZARES.
--- NOTE | 2019-09-23 19:30 | NUR ---
NURSE NOTES: Pt. received from SAGE Olson and SAGE Schreiber. Pt. AAOx4, on room air, no complaints of pain at this time. IV right AC 20g intact. Right buttocks surgical wound open to air, endorsed MD is aware and no new orders. Bed is low and locked, side rails x2 up, and call light is in reach. Will continue plan of care.
--- NOTE | 2019-09-23 19:42 | Surgery Progress Note ---
Surgery Progress Note Subjective Additional Comments states he feels better worse wbc cellulitis improved scrotal edema improved overall improved am labs Objective Last 24 Hour Vital Signs Date Time Temp Pulse Resp B/P (MAP) Pulse Ox O2 Delivery O2 Flow Rate FiO2 09/23/19 17:58 98.1 09/23/19 16:00 98.1 67 18 109/67 (81) 94 09/23/19 12:00 97.9 65 20 111/59 (76) 96 09/23/19 09:00 Room Air 09/23/19 08:00 97.7 84 20 104/60 (75) 94 09/23/19 04:00 98.4 78 18 110/76 (87) 98 09/23/19 00:00 97.5 76 20 109/76 (87) 99 09/22/19 21:00 Room Air 09/22/19 20:09 84 18 98 Room Air 21 09/22/19 20:00 97.9 75 19 112/65 (81) 98 I&O Intake and Output 09/22/19 09/23/19 19:00 07:00 Intake Total 985 ml 400 ml Output Total 550 ml 650 ml Balance 435 ml -250 ml Intake Oral 600 ml 400 ml IV Total 385 ml Output Urine Total 550 ml 650 ml # Voids 2 3 Dressing: saturated Wound: clean Cardiovascular: RSR Respiratory: clear Abdomen: soft, non-tender, present bowel sounds Extremities: no edema, no tenderness, no cyanosis Laboratory Tests Test 09/23/19 07:35 09/23/19 09:30 White Blood Count 37.8 K/UL (4.8-10.8) #*H Red Blood Count 4.31 M/UL (4.70-6.10) L Hemoglobin 13.5 G/DL (14.2-18.0) L Hematocrit 39.4 % (42.0-52.0) L Mean Corpuscular Volume 91 FL (80-99) Mean Corpuscular Hemoglobin 31.4 PG (27.0-31.0) H Mean Corpuscular Hemoglobin Concent 34.3 G/DL (32.0-36.0) Red Cell Distribution Width 11.4 % (11.6-14.8) L Platelet Count 200 K/UL (150-450) Mean Platelet Volume 7.8 FL (6.5-10.1) Neutrophils (%) (Auto) % (45.0-75.0) Lymphocytes (%) (Auto) % (20.0-45.0) Monocytes (%) (Auto) % (1.0-10.0) Eosinophils (%) (Auto) % (0.0-3.0) Basophils (%) (Auto) % (0.0-2.0) Differential Total Cells Counted 100 Neutrophils % (Manual) 89 % (45-75) H Lymphocytes % (Manual) 8 % (20-45) L Monocytes % (Manual) 3 % (1-10) Eosinophils % (Manual) 0 % (0-3) Basophils % (Manual) 0 % (0-2) Band Neutrophils 0 % (0-8) Platelet Estimate Adequate Platelet Morphology Normal Red Blood Cell Morphology Normal Erythrocyte Sedimentation Rate 76 MM/HR (0-15) H Prothrombin Time 9.9 SEC (9.30-11.50) Prothromb Time International Ratio 0.9 (0.9-1.1) Activated Partial Thromboplast Time 28 SEC (23-33) Sodium Level 135 MMOL/L (136-145) L Potassium Level 4.1 MMOL/L (3.5-5.1) Chloride Level 102 MMOL/L (98-107) Carbon Dioxide Level 21 MMOL/L (21-32) Anion Gap 12 mmol/L (5-15) Blood Urea Nitrogen 18 mg/dL (7-18) Creatinine 0.8 MG/DL (0.55-1.30) Estimat Glomerular Filtration Rate > 60 mL/min (>60) Glucose Level 136 MG/DL (74-106) H Lactic Acid Level 1.00 mmol/L (0.4-2.0) Calcium Level 9.0 MG/DL (8.5-10.1) Phosphorus Level 3.8 MG/DL (2.5-4.9) Magnesium Level 1.9 MG/DL (1.8-2.4) Total Bilirubin 0.3 MG/DL (0.2-1.0) Aspartate Amino Transf (AST/SGOT) 24 U/L (15-37) Alanine Aminotransferase (ALT/SGPT) 157 U/L (12-78) H Alkaline Phosphatase 240 U/L (46-116) H C-Reactive Protein, Quantitative 25.1 mg/dL (0.00-0.90) H Total Protein 6.7 G/DL (6.4-8.2) Albumin 2.2 G/DL (3.4-5.0) L Globulin 4.5 g/dL Albumin/Globulin Ratio 0.5 (1.0-2.7) L Vancomycin Level Trough 5.9 ug/mL (5.0-12.0) Plan Problems: (1) Sepsis Assessment & Plan: Patient presents with abnormal labs, leukocytosis, scrotal cellulitis perineal cellulitis active infection. On evaluation at bedside patient continues to have packing left from his I&D which was not removed or cared for since incision and drainage. He states is very painful feels are comfortable. Packing dressings were removed by myself. No purulent drainage noted. Some cellulitis and edema around the perineum noted. Likely infectious source is this buttock abscess that is now perineal cellulitis as well. The CT was reviewed and gas identified but this is not seem like a Mary's gangrene or other severe process as it seems like he had a perirectal abscess that was drained and adequately furthermore placed on care plan with packing and dressings which have not been completed since. Now it is worsened. Will need to monitor closely. IV antibiotics. IV fluids. Discussed care plan with patient. Unfortunately he failed outpatient management and now requires inpatient care plan. May proceed with a larger incision and drainage if does not improve over the next 24 hours. Will monitor closely. Thank you for let me participate in patient's care (2) Abscess of buttock, right Assessment & Plan: Findings: There is considerable edema of the skin of the scrotum. This also extends into the penile shaft. There is infiltration of the pubic and suprapubic subcutaneous fat as well. Numerous gas bubbles are seen within the perineum, extending from the scrotum and to the posterior perineum. There is likewise edema of the surrounding skin. No discrete fluid collections are demonstrated. Dense material is seen associated with the air bubbles in the posterior perineum. This may be packing material related to prior incision and drainage as this appears to be deep to a superficial skin defect. A few gas bubbles are seen in the bilateral gluteus cristiano musculature. The bones are unremarkable. The pelvic viscera are unremarkable. Impression: Considerable edema of the scrotal wall, penile shaft, and superficial perineum. Given stated clinical history, likely indicates cellulitis Considerable gas within the perineum and anterior inferior right pubic region. This may be related to prior incision and drainage, but given that it extends well beyond the area of apparent incision extent the possibility of infection with a gas- forming organism should also be considered. Bilateral gluteal gas bubbles. May be related to recent injections, but the possibility of infectious process in this location should also be considered. Jerson Owens Sep 23, 2019 19:42
[2019-09-23 20:00] VITALS: BP 121/74
--- NOTE | 2019-09-23 21:03 | Consultation ---
History of Present Illness General Date patient seen: Sep 22, 2019 Time patient seen: 13:00 Chief Complaint: Pain Reason for Consultation: abscess Present Illness HPI Late Entry Pt was seen on 09/22/2019 at 1PM for initial consult. HPI 39yo gentleman with no PMH presents with buttock pain. Started out as a pimple a week ago. Went to a clinic and they drained it and gave him two IM antibiotics. Pt returned the second day and received more IM antibiotics. The pain/swelling/drainage was not improving so pt presented to [facility]. Reports diaphoresis. Denies fever, chills, cough, sore throat, congestion, sob, abdominal pain, diarrhea, dysuria. No contacts with COVID patients Allergies: Coded Allergies: No Known Allergies (Unverified , 09/21/19) Medication History Scheduled Clindamycin Hcl* (Clindamycin Hcl*), 2 TAB ORAL Q12HR, (Reported) Ibuprofen* (Motrin*), 600 MG ORAL Q6H, (Reported) Trimethoprim/Sulfamethoxazole (Bactrim Ds Tablet), 1 TAB ORAL TWICE A DAY, ( Reported) Patient History Healthcare decision maker Resuscitation status Full Code Advanced Directive on File Review of Systems All Other Systems: negative except mentioned in HPI Physical Exam Last 24 Hour Vital Signs Date Time Temp Pulse Resp B/P (MAP) Pulse Ox O2 Delivery O2 Flow Rate FiO2 09/23/19 20:25 87 18 97 Room Air 21 09/23/19 17:58 98.1 09/23/19 16:00 98.1 67 18 109/67 (81) 94 09/23/19 12:00 97.9 65 20 111/59 (76) 96 09/23/19 09:00 Room Air 09/23/19 08:00 97.7 84 20 104/60 (75) 94 09/23/19 04:00 98.4 78 18 110/76 (87) 98 09/23/19 00:00 97.5 76 20 109/76 (87) 99 Intake and Output 09/22/19 09/23/19 19:00 07:00 Intake Total 985 ml 400 ml Output Total 550 ml 650 ml Balance 435 ml -250 ml Intake Oral 600 ml 400 ml IV Total 385 ml Output Urine Total 550 ml 650 ml # Voids 2 3 Laboratory Tests Test 09/23/19 07:35 09/23/19 09:30 White Blood Count 37.8 K/UL (4.8-10.8) #*H Red Blood Count 4.31 M/UL (4.70-6.10) L Hemoglobin 13.5 G/DL (14.2-18.0) L Hematocrit 39.4 % (42.0-52.0) L Mean Corpuscular Volume 91 FL (80-99) Mean Corpuscular Hemoglobin 31.4 PG (27.0-31.0) H Mean Corpuscular Hemoglobin Concent 34.3 G/DL (32.0-36.0) Red Cell Distribution Width 11.4 % (11.6-14.8) L Platelet Count 200 K/UL (150-450) Mean Platelet Volume 7.8 FL (6.5-10.1) Neutrophils (%) (Auto) % (45.0-75.0) Lymphocytes (%) (Auto) % (20.0-45.0) Monocytes (%) (Auto) % (1.0-10.0) Eosinophils (%) (Auto) % (0.0-3.0) Basophils (%) (Auto) % (0.0-2.0) Differential Total Cells Counted 100 Neutrophils % (Manual) 89 % (45-75) H Lymphocytes % (Manual) 8 % (20-45) L Monocytes % (Manual) 3 % (1-10) Eosinophils % (Manual) 0 % (0-3) Basophils % (Manual) 0 % (0-2) Band Neutrophils 0 % (0-8) Platelet Estimate Adequate Platelet Morphology Normal Red Blood Cell Morphology Normal Erythrocyte Sedimentation Rate 76 MM/HR (0-15) H Prothrombin Time 9.9 SEC (9.30-11.50) Prothromb Time International Ratio 0.9 (0.9-1.1) Activated Partial Thromboplast Time 28 SEC (23-33) Sodium Level 135 MMOL/L (136-145) L Potassium Level 4.1 MMOL/L (3.5-5.1) Chloride Level 102 MMOL/L (98-107) Carbon Dioxide Level 21 MMOL/L (21-32) Anion Gap 12 mmol/L (5-15) Blood Urea Nitrogen 18 mg/dL (7-18) Creatinine 0.8 MG/DL (0.55-1.30) Estimat Glomerular Filtration Rate > 60 mL/min (>60) Glucose Level 136 MG/DL (74-106) H Lactic Acid Level 1.00 mmol/L (0.4-2.0) Calcium Level 9.0 MG/DL (8.5-10.1) Phosphorus Level 3.8 MG/DL (2.5-4.9) Magnesium Level 1.9 MG/DL (1.8-2.4) Total Bilirubin 0.3 MG/DL (0.2-1.0) Aspartate Amino Transf (AST/SGOT) 24 U/L (15-37) Alanine Aminotransferase (ALT/SGPT) 157 U/L (12-78) H Alkaline Phosphatase 240 U/L (46-116) H C-Reactive Protein, Quantitative 25.1 mg/dL (0.00-0.90) H Total Protein 6.7 G/DL (6.4-8.2) Albumin 2.2 G/DL (3.4-5.0) L Globulin 4.5 g/dL Albumin/Globulin Ratio 0.5 (1.0-2.7) L Vancomycin Level Trough 5.9 ug/mL (5.0-12.0) Height (Feet): 5 Height (Inches): 3.00 Weight (Pounds): 175 Medications Current Medications Medications (Trade) Dose Ordered Sig/Jasiel Route PRN Reason Start Time Stop Time Status Last Admin Dose Admin Acetaminophen (Tylenol) 650 mg Q4H PRN ORAL fever 09/22/19 00:45 10/22/19 00:44 09/22/19 09:57 Albuterol/ Ipratropium (Albuterol/ Ipratropium) 3 ml Q4H PRN HHN Shortness of Breath 09/22/19 00:45 09/27/19 00:44 Cefepime HCl 2 gm/ Dextrose 110 ml @ 220 mls/hr EVERY 12 HOURS IV 09/22/19 09:00 09/29/19 08:59 09/23/19 09:10 Dextrose (Dextrose 50%) 25 ml Q30M PRN IV Hypoglycemia 09/22/19 00:45 12/21/19 00:44 Dextrose (Dextrose 50%) 50 ml Q30M PRN IV Hypoglycemia 09/22/19 00:45 12/21/19 00:44 Heparin Sodium (Porcine) (Heparin 5000 units/ml) 5,000 units EVERY 12 HOURS SUBQ 09/22/19 09:00 11/06/19 08:59 09/23/19 09:11 Metronidazole (Flagyl) 500 mg Q8HR ORAL 09/22/19 14:15 09/29/19 14:14 09/23/19 15:20 Morphine Sulfate (Morphine Sulfate) 4 mg Q3H PRN IVP For Pain 09-2109/22/19 01:15 09/29/19 01:14 09/23/19 17:28 Nitroglycerin (Ntg) 0.4 mg Every 5 Minutes PRN SL Prn Chest Pain 09/22/19 00:45 10/22/19 00:44 Ondansetron HCl (Zofran) 4 mg Q6H PRN IVP Nausea & Vomiting 09/22/19 00:45 10/22/19 00:44 Polyethylene Glycol (Miralax) 17 gm DAILYPRN PRN ORAL Constipation 09/22/19 00:45 10/22/19 00:44 Temazepam (Restoril) 15 mg HSPRN PRN ORAL Insomnia 09/22/19 00:45 09/29/19 00:44 Vancomycin HCl (Vanco rx to dose) 1 ea DAILY PRN MISC per pharmacy 09/22/19 01:15 10/22/19 01:14 Vancomycin/Sodium Chloride 275 ml @ 125 mls/hr Q12H IVPB 09/23/19 18:00 09/28/19 17:59 09/23/19 17:21 Objective Narrative Gen: NAd. well nourished. well hydrated HEENT: anicteric sclera CV: RRR. S1+S2. no rubs or gallop Resp: RRR. CTAB. no wheezes or crackles. Abd: soft. no TTP. nondistended Buttock: R buttock erythema, induration, swelling, tenderness. drainage. Ext: no LE edema Neuro: AAO. follows commands. answers qustions appropriately. Assessment/Plan Assessment/Plan: Afebrile Leukocytosis Sepsis Buttock abscess Plan: continue cefepime and vanc #1 add flagyl #1 monitor temp and cbc f/u wound cx two sets of bcx MRSA screen Rosa Moreau MD Sep 23, 2019 21:03
[2019-09-24] VITALS: BP 113/68
[2019-09-24] MEDS: Morphine Sulfate 4mg/ml Inj (IV USE ONLY) IVP PRN ×3 (02:17→21:56)
[2019-09-24 04:00] VITALS: BP 121/75
[2019-09-24] MEDS: metroNIDAZOLE 500mg tab ORAL SCH ×3 (05:14→21:55)
[2019-09-24] MEDS: Vancomycin 1.25gm/NS Premix 275 ML IVPB SCH ×2 (05:14→17:44)
--- NOTE | 2019-09-24 07:15 | NUR ---
HAND-OFF: Report given to SAGE Olson.
[2019-09-24 07:42] LABS: HEMATOCRIT 42.1 % (42.0-52.0); HEMOGLOBIN 14.3 G/DL (14.2-18.0); MEAN CORPUSCULAR VOLUME 93 FL (80-99); PLATELET COUNT 219 K/UL (150-450); RED BLOOD COUNT 4.52 M/UL (4.70-6.10); RED CELL DISTRIBUTION WIDTH 11.6 % (11.6-14.8); WHITE BLOOD COUNT 19.2 K/UL (4.8-10.8)
[2019-09-24 08:00] VITALS: BP 118/73
--- NOTE | 2019-09-24 08:00 | NUR ---
NURSE NOTES: Patient alert x4; on room air, no sing of distress and shortness of breath; no sing of chest pain; IV Right AC 20G TKO; urinal within reach; some drainage noticed on buttocks area; side rails up x2, breaks engaged, bed at lowest position, breaks engaged; call light within reach; will keep monitoring.
[2019-09-24 08:06] LABS: ANION GAP 11 mmol/L (5-15); BLOOD UREA NITROGEN 19 mg/dL (7-18); CALCIUM 8.6 MG/DL (8.5-10.1); CARBON DIOXIDE 25 MMOL/L (21-32); CHLORIDE 103 MMOL/L (98-107); CREATININE 0.9 MG/DL (0.55-1.30); SODIUM 139 MMOL/L (136-145)
[2019-09-24] MEDS: Cefepime HCl 2 GM in D5W 110 ML IV SCH ×2 (08:28→21:37)
[2019-09-24] MEDS: Heparin 5000 units/ml inj SUBQ SCH ×2 (08:32→22:07)
[2019-09-24 12:00] VITALS: BP 110/62
--- NOTE | 2019-09-24 15:09 | Surgery Progress Note ---
Surgery Progress Note Subjective Additional Comments labs improved states he feels better no n/v/f/c draining well Objective Last 24 Hour Vital Signs Date Time Temp Pulse Resp B/P (MAP) Pulse Ox O2 Delivery O2 Flow Rate FiO2 09/24/19 14:55 98.5 09/24/19 12:00 98.5 69 17 110/62 (78) 98 09/24/19 09:00 Room Air 09/24/19 08:00 98.2 70 19 118/73 (88) 98 09/24/19 04:00 98.2 64 18 121/75 (90) 95 09/24/19 00:00 98.2 64 16 113/68 (83) 97 09/23/19 21:00 Room Air 09/23/19 20:25 87 18 97 Room Air 21 09/23/19 20:00 98.2 59 14 121/74 (90) 97 09/23/19 16:00 98.1 67 18 109/67 (81) 94 I&O Intake and Output 09/23/19 09/24/19 19:00 07:00 Intake Total 1380 ml 310 ml Output Total 600 ml Balance 1380 ml -290 ml Intake Oral 720 ml 200 ml IV Total 660 ml 110 ml Output Urine Total 600 ml # Voids 3 2 Dressing: saturated Wound: clean Cardiovascular: RSR Respiratory: clear Abdomen: soft, non-tender, present bowel sounds, non-distended Extremities: edema, no tenderness, no cyanosis Laboratory Tests Test 09/24/19 06:50 White Blood Count 19.2 K/UL (4.8-10.8) H Red Blood Count 4.52 M/UL (4.70-6.10) L Hemoglobin 14.3 G/DL (14.2-18.0) Hematocrit 42.1 % (42.0-52.0) Mean Corpuscular Volume 93 FL (80-99) Mean Corpuscular Hemoglobin 31.6 PG (27.0-31.0) H Mean Corpuscular Hemoglobin Concent 33.9 G/DL (32.0-36.0) Red Cell Distribution Width 11.6 % (11.6-14.8) Platelet Count 219 K/UL (150-450) Mean Platelet Volume 7.1 FL (6.5-10.1) Neutrophils (%) (Auto) % (45.0-75.0) Lymphocytes (%) (Auto) % (20.0-45.0) Monocytes (%) (Auto) % (1.0-10.0) Eosinophils (%) (Auto) % (0.0-3.0) Basophils (%) (Auto) % (0.0-2.0) Differential Total Cells Counted 100 Neutrophils % (Manual) 70 % (45-75) Lymphocytes % (Manual) 16 % (20-45) L Monocytes % (Manual) 13 % (1-10) H Eosinophils % (Manual) 1 % (0-3) Basophils % (Manual) 0 % (0-2) Band Neutrophils 0 % (0-8) Platelet Estimate Adequate Platelet Morphology Normal Red Blood Cell Morphology Normal Sodium Level 139 MMOL/L (136-145) Potassium Level 4.0 MMOL/L (3.5-5.1) Chloride Level 103 MMOL/L (98-107) Carbon Dioxide Level 25 MMOL/L (21-32) Anion Gap 11 mmol/L (5-15) Blood Urea Nitrogen 19 mg/dL (7-18) H Creatinine 0.9 MG/DL (0.55-1.30) Estimat Glomerular Filtration Rate > 60 mL/min (>60) Glucose Level 85 MG/DL (74-106) Calcium Level 8.6 MG/DL (8.5-10.1) Plan Problems: (1) Sepsis Assessment & Plan: Patient presents with abnormal labs, leukocytosis, scrotal cellulitis perineal cellulitis active infection. On evaluation at bedside patient continues to have packing left from his I&D which was not removed or cared for since incision and drainage. He states is very painful feels are comfortable. Packing dressings were removed by myself. No purulent drainage noted. Some cellulitis and edema around the perineum noted. Likely infectious source is this buttock abscess that is now perineal cellulitis as well. The CT was reviewed and gas identified but this is not seem like a Mary's gangrene or other severe process as it seems like he had a perirectal abscess that was drained and adequately furthermore placed on care plan with packing and dressings which have not been completed since. Now it is worsened. Will need to monitor closely. IV antibiotics. IV fluids. Discussed care plan with patient. Unfortunately he failed outpatient management and now requires inpatient care plan. May proceed with a larger incision and drainage if does not improve over the next 24 hours. Will monitor closely. Thank you for let me participate in patient's care (2) Abscess of buttock, right Assessment & Plan: Findings: There is considerable edema of the skin of the scrotum. This also extends into the penile shaft. There is infiltration of the pubic and suprapubic subcutaneous fat as well. Numerous gas bubbles are seen within the perineum, extending from the scrotum and to the posterior perineum. There is likewise edema of the surrounding skin. No discrete fluid collections are demonstrated. Dense material is seen associated with the air bubbles in the posterior perineum. This may be packing material related to prior incision and drainage as this appears to be deep to a superficial skin defect. A few gas bubbles are seen in the bilateral gluteus cristiano musculature. The bones are unremarkable. The pelvic viscera are unremarkable. Impression: Considerable edema of the scrotal wall, penile shaft, and superficial perineum. Given stated clinical history, likely indicates cellulitis Considerable gas within the perineum and anterior inferior right pubic region. This may be related to prior incision and drainage, but given that it extends well beyond the area of apparent incision extent the possibility of infection with a gas- forming organism should also be considered. Bilateral gluteal gas bubbles. May be related to recent injections, but the possibility of infectious process in this location should also be considered. Jerson Owens Sep 24, 2019 15:09
--- NOTE | 2019-09-24 15:16 | Internal Med Progress Note ---
Subjective Date of Service: Sep 24, 2019 Physician Name Ravi Lopez Attending Physician Sheldon Webster MD Current Medications Medications (Trade) Dose Ordered Sig/Jasiel Route PRN Reason Start Time Stop Time Status Last Admin Dose Admin Acetaminophen (Tylenol) 650 mg Q4H PRN ORAL fever 09/22/19 00:45 10/22/19 00:44 09/22/19 09:57 Albuterol/ Ipratropium (Albuterol/ Ipratropium) 3 ml Q4H PRN HHN Shortness of Breath 09/22/19 00:45 09/27/19 00:44 Cefepime HCl 2 gm/ Dextrose 110 ml @ 220 mls/hr EVERY 12 HOURS IV 09/22/19 09:00 09/29/19 08:59 09/24/19 08:28 Dextrose (Dextrose 50%) 25 ml Q30M PRN IV Hypoglycemia 09/22/19 00:45 12/21/19 00:44 Dextrose (Dextrose 50%) 50 ml Q30M PRN IV Hypoglycemia 09/22/19 00:45 12/21/19 00:44 Heparin Sodium (Porcine) (Heparin 5000 units/ml) 5,000 units EVERY 12 HOURS SUBQ 09/22/19 09:00 11/06/19 08:59 09/24/19 08:32 Metronidazole (Flagyl) 500 mg Q8HR ORAL 09/22/19 14:15 09/29/19 14:14 09/24/19 13:18 Morphine Sulfate (Morphine Sulfate) 4 mg Q3H PRN IVP For Pain 09-2109/22/19 01:15 09/29/19 01:14 09/24/19 13:21 Nitroglycerin (Ntg) 0.4 mg Every 5 Minutes PRN SL Prn Chest Pain 09/22/19 00:45 10/22/19 00:44 Ondansetron HCl (Zofran) 4 mg Q6H PRN IVP Nausea & Vomiting 09/22/19 00:45 10/22/19 00:44 Polyethylene Glycol (Miralax) 17 gm DAILYPRN PRN ORAL Constipation 09/22/19 00:45 10/22/19 00:44 Temazepam (Restoril) 15 mg HSPRN PRN ORAL Insomnia 09/22/19 00:45 09/29/19 00:44 Vancomycin HCl (Vanco rx to dose) 1 ea DAILY PRN MISC per pharmacy 09/22/19 01:15 10/22/19 01:14 Vancomycin/Sodium Chloride 275 ml @ 125 mls/hr Q12H IVPB 09/23/19 18:00 09/28/19 17:59 09/24/19 05:14 Allergies: Coded Allergies: No Known Allergies (Unverified , 09/21/19) ROS Limited/Unobtainable: No Constitutional: Reports: no symptoms HEENT: Reports: no symptoms Cardiovascular: Reports: no symptoms Respiratory: Reports: no symptoms Gastrointestinal/Abdominal: Reports: no symptoms Genitourinary: Reports: no symptoms Neurologic/Psychiatric: Reports: no symptoms Subjective 39 YO M admitted with right buttock abscess and cellulitis perineum. Cover for Int Ciaran-DR Webster Objective Last Vital Signs Date Time Temp Pulse Resp B/P (MAP) Pulse Ox O2 Delivery O2 Flow Rate FiO2 09/24/19 14:55 98.5 09/24/19 12:00 69 17 110/62 (78) 98 09/24/19 09:00 Room Air 09/23/19 20:25 21 Laboratory Tests Test 09/24/19 06:50 White Blood Count 19.2 K/UL (4.8-10.8) H Red Blood Count 4.52 M/UL (4.70-6.10) L Hemoglobin 14.3 G/DL (14.2-18.0) Hematocrit 42.1 % (42.0-52.0) Mean Corpuscular Volume 93 FL (80-99) Mean Corpuscular Hemoglobin 31.6 PG (27.0-31.0) H Mean Corpuscular Hemoglobin Concent 33.9 G/DL (32.0-36.0) Red Cell Distribution Width 11.6 % (11.6-14.8) Platelet Count 219 K/UL (150-450) Mean Platelet Volume 7.1 FL (6.5-10.1) Neutrophils (%) (Auto) % (45.0-75.0) Lymphocytes (%) (Auto) % (20.0-45.0) Monocytes (%) (Auto) % (1.0-10.0) Eosinophils (%) (Auto) % (0.0-3.0) Basophils (%) (Auto) % (0.0-2.0) Differential Total Cells Counted 100 Neutrophils % (Manual) 70 % (45-75) Lymphocytes % (Manual) 16 % (20-45) L Monocytes % (Manual) 13 % (1-10) H Eosinophils % (Manual) 1 % (0-3) Basophils % (Manual) 0 % (0-2) Band Neutrophils 0 % (0-8) Platelet Estimate Adequate Platelet Morphology Normal Red Blood Cell Morphology Normal Sodium Level 139 MMOL/L (136-145) Potassium Level 4.0 MMOL/L (3.5-5.1) Chloride Level 103 MMOL/L (98-107) Carbon Dioxide Level 25 MMOL/L (21-32) Anion Gap 11 mmol/L (5-15) Blood Urea Nitrogen 19 mg/dL (7-18) H Creatinine 0.9 MG/DL (0.55-1.30) Estimat Glomerular Filtration Rate > 60 mL/min (>60) Glucose Level 85 MG/DL (74-106) Calcium Level 8.6 MG/DL (8.5-10.1) Microbiology Date/Time Source Procedure Growth Status 09/22/19 15:15 Blood Blood Culture - Preliminary NO GROWTH AFTER 24 HOURS Resulted 09/22/19 15:00 Blood Blood Culture - Preliminary NO GROWTH AFTER 24 HOURS Resulted 09/21/19 22:33 Other(Specify in comment) Gram Stain - Final Resulted 09/21/19 22:33 Wound Culture - Preliminary Staphylococcus Sp Coag Neg Strep Species, Gamma-Hemolytic Resulted Intake and Output 09/23/19 09/24/19 19:00 07:00 Intake Total 1380 ml 310 ml Output Total 600 ml Balance 1380 ml -290 ml Intake Oral 720 ml 200 ml IV Total 660 ml 110 ml Output Urine Total 600 ml # Voids 3 2 Objective PHYSICAL EXAMINATION: GENERAL: The patient is awake and responsive, in no acute distress. HEAD AND NECK EXAMINATION: Pupils are equal and reactive to light. Extraocular movements intact. Neck was supple. No JVD. LUNGS: Clear. No wheezing or rales. HEART: S1, S2. Regular rhythm. No gallops. ABDOMEN: Soft and nontender. Mildly obese. EXTREMITIES: No cyanosis, clubbing, or edema. PELVIC: The patient has right buttock area drainage abscess as well as scrotum was erythema and edematous. NEUROLOGIC: ATOMIC PHYSICS PROFESSOR II through XII are grossly normal. The patient moving all extremities. Gait is intact. Assessment/Plan Problem List: (1) Leukocytosis Assessment & Plan: Due to abscess/cellulitis; continue antibiotics per ID (2) Cellulitis, perineum Assessment & Plan: continue vanco, flagyl and cefepime per ID=Dr Moreau (3) Abscess of buttock, right Assessment & Plan: May require Incision and drainage. See surgery note=Ravi Balderas MD Sep 24, 2019 15:16
[2019-09-24 16:00] VITALS: BP 109/63
--- NOTE | 2019-09-24 18:10 | NUR ---
NURSE NOTES: Wound dressing on the right buttocks changed; patient tolerated well
--- NOTE | 2019-09-24 19:30 | NUR ---
NURSE NOTES: Patient awake in bed, alert and oriented x4, no SOB noted, in pain of 6/10. Pain med offered as ordered but patient will call RN once he is ready to go to sleep. Instructed to use call light for assistance. Bed in lowest and lock engaged. Will continue to monitor.
--- NOTE | 2019-09-24 19:53 | NUR ---
HAND-OFF: Report given to SAGE Reynolds.
[2019-09-24 20:00] VITALS: BP 111/65
[2019-09-25] VITALS (10 sets, daily range): BP systolic 118–139; BP diastolic 62–87
[2019-09-25] MEDS: Morphine Sulfate 4mg/ml Inj (IV USE ONLY) IVP PRN (05:17)
[2019-09-25] MEDS: metroNIDAZOLE 500mg tab ORAL SCH ×3 (05:17→21:15)
--- NOTE | 2019-09-25 05:40 | NUR ---
NURSE NOTES: Dressings changed.
[2019-09-25 06:47] LABS: ANION GAP 8 mmol/L (5-15); BLOOD UREA NITROGEN 14 mg/dL (7-18); CARBON DIOXIDE 27 MMOL/L (21-32); CHLORIDE 100 MMOL/L (98-107); CREATININE 0.9 MG/DL (0.55-1.30); POTASSIUM 4.6 MMOL/L (3.5-5.1); SODIUM 135 MMOL/L (136-145)
--- NOTE | 2019-09-25 06:48 | NUR ---
NURSE NOTES: Called lab to follow up vanco trough result but still not available until this time. Sent message to pipe line.
[2019-09-25 07:08] LABS: HEMATOCRIT 43.9 % (42.0-52.0); HEMOGLOBIN 15.3 G/DL (14.2-18.0); MEAN CORPUSCULAR VOLUME 91 FL (80-99); PLATELET COUNT 268 K/UL (150-450); RED BLOOD COUNT 4.83 M/UL (4.70-6.10); RED CELL DISTRIBUTION WIDTH 12.9 % (11.6-14.8); WHITE BLOOD COUNT 18.1 K/UL (4.8-10.8)
--- NOTE | 2019-09-25 07:48 | NUR ---
NURSE NOTES: Report received from Juli CAZARES. Patient seen on rounds, AxOx4, not in distress, no complaints of pain. last given IV morphine at 6am and reports pain relief on right buttocks. PIV on right AC patent and intact. Dressing on right buttocks secured. Bed low and locked, siderails up x2, call light within reach, instructed to call nurse for assistance. Will continue to monitor.
[2019-09-25] MEDS: Cefepime HCl 2 GM in D5W 110 ML IV SCH ×2 (08:08→20:12)
[2019-09-25] MEDS: Heparin 5000 units/ml inj SUBQ SCH ×2 (08:10→20:39)
[2019-09-25] MEDS ORDERED: Vancomycin 1.25gm/NS Premix 275 ML IVPB SCH (09:00)
--- NOTE | 2019-09-25 10:23 | Infectious Diseases Prog Note ---
Assessment/Plan Assessment/Plan Afebrile Leukocytosis; improving -CT chest: There is mild left basilar atelectasis. No consolidating infiltrates are identified. 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 Given stated clinical history, likely indicates cellulitis. Considerable gas within the perineum and anterior inferior right pubic region. This may be related to prior incision and drainage, but given that it extends well beyond the area of apparent incision extent the possibility of infection with a gas-forming organism should also be considered. Bilateral gluteal gas bubbles. May be related to recent injections, but the possibility of infectious process in this location should also be considered. Plan: continue cefepime, flagyl #3 Switch IV Vancomycin #3 to Linezolid to cover empirically for VRE monitor temp and cbc f/u wound cx f/u BCx f/u MRSA screen DW RN and surgeon Subjective Allergies: Coded Allergies: No Known Allergies (Unverified , 09/21/19) Subjective afebrile at RA wbc improving Bcx NTD Objective Vital Signs Last 24 Hour Vital Signs Date Time Temp Pulse Resp B/P (MAP) Pulse Ox O2 Delivery O2 Flow Rate FiO2 09/25/19 09:00 Room Air 09/25/19 08:00 98.3 84 18 133/62 (85) 98 09/25/19 07:40 78 18 96 Room Air 21 09/25/19 04:55 97.3 63 17 118/74 (89) 96 09/24/19 21:00 Room Air 09/24/19 20:26 82 18 95 Room Air 21 09/24/19 20:00 98.4 71 16 111/65 (80) 98 09/24/19 16:00 98.4 72 17 109/63 (78) 99 09/24/19 14:55 98.5 09/24/19 12:00 98.5 69 17 110/62 (78) 98 Height (Feet): 5 Height (Inches): 3.00 Weight (Pounds): 175 Objective Gen: NAd. well nourished. well hydrated HEENT: anicteric sclera CV: RRR. S1+S2. no rubs or gallop Resp: RRR. CTAB. no wheezes or crackles. Abd: soft. no TTP. nondistended Buttock: R buttock erythema, induration, swelling, tenderness--improving. Microbiology Date/Time Source Procedure Growth Status 09/22/19 15:15 Blood Blood Culture - Preliminary NO GROWTH AFTER 48 HOURS Resulted 09/22/19 15:00 Blood Blood Culture - Preliminary NO GROWTH AFTER 48 HOURS Resulted 09/23/19 11:28 Nose MRSA Culture - Final NO METHICILLIN RESISTANT STAPH AUREUS... Complete Laboratory Tests Test 09/25/19 05:00 White Blood Count 18.1 K/UL (4.8-10.8) H Red Blood Count 4.83 M/UL (4.70-6.10) Hemoglobin 15.3 G/DL (14.2-18.0) Hematocrit 43.9 % (42.0-52.0) Mean Corpuscular Volume 91 FL (80-99) Mean Corpuscular Hemoglobin 31.7 PG (27.0-31.0) H Mean Corpuscular Hemoglobin Concent 34.8 G/DL (32.0-36.0) Red Cell Distribution Width 12.9 % (11.6-14.8) Platelet Count 268 K/UL (150-450) Mean Platelet Volume 6.5 FL (6.5-10.1) Neutrophils (%) (Auto) % (45.0-75.0) Lymphocytes (%) (Auto) % (20.0-45.0) Monocytes (%) (Auto) % (1.0-10.0) Eosinophils (%) (Auto) % (0.0-3.0) Basophils (%) (Auto) % (0.0-2.0) Neutrophils % (Manual) Pending Lymphocytes % (Manual) Pending Platelet Estimate Pending Platelet Morphology Pending Sodium Level 135 MMOL/L (136-145) L Potassium Level 4.6 MMOL/L (3.5-5.1) Chloride Level 100 MMOL/L (98-107) Carbon Dioxide Level 27 MMOL/L (21-32) Anion Gap 8 mmol/L (5-15) Blood Urea Nitrogen 14 mg/dL (7-18) Creatinine 0.9 MG/DL (0.55-1.30) Estimat Glomerular Filtration Rate > 60 mL/min (>60) Glucose Level 97 MG/DL (74-106) Calcium Level 9.0 MG/DL (8.5-10.1) Vancomycin Level Trough 7.6 ug/mL (5.0-12.0) Current Medications Medications (Trade) Dose Ordered Sig/Jasiel Route PRN Reason Start Time Stop Time Status Last Admin Dose Admin Acetaminophen (Tylenol) 650 mg Q4H PRN ORAL fever 09/22/19 00:45 10/22/19 00:44 09/22/19 09:57 Albuterol/ Ipratropium (Albuterol/ Ipratropium) 3 ml Q4H PRN HHN Shortness of Breath 09/22/19 00:45 09/27/19 00:44 Cefepime HCl 2 gm/ Dextrose 110 ml @ 220 mls/hr EVERY 12 HOURS IV 09/22/19 09:00 09/29/19 08:59 09/25/19 08:08 Dextrose (Dextrose 50%) 25 ml Q30M PRN IV Hypoglycemia 09/22/19 00:45 12/21/19 00:44 Dextrose (Dextrose 50%) 50 ml Q30M PRN IV Hypoglycemia 09/22/19 00:45 12/21/19 00:44 Heparin Sodium (Porcine) (Heparin 5000 units/ml) 5,000 units EVERY 12 HOURS SUBQ 09/22/19 09:00 11/06/19 08:59 09/25/19 08:10 Metronidazole (Flagyl) 500 mg Q8HR ORAL 09/22/19 14:15 09/29/19 14:14 09/25/19 05:17 Morphine Sulfate (Morphine Sulfate) 4 mg Q3H PRN IVP For Pain 09-2109/22/19 01:15 09/29/19 01:14 09/25/19 05:17 Nitroglycerin (Ntg) 0.4 mg Every 5 Minutes PRN SL Prn Chest Pain 09/22/19 00:45 10/22/19 00:44 Ondansetron HCl (Zofran) 4 mg Q6H PRN IVP Nausea & Vomiting 09/22/19 00:45 10/22/19 00:44 Polyethylene Glycol (Miralax) 17 gm DAILYPRN PRN ORAL Constipation 09/22/19 00:45 10/22/19 00:44 Temazepam (Restoril) 15 mg HSPRN PRN ORAL Insomnia 09/22/19 00:45 09/29/19 00:44 Vancomycin HCl (Vanco rx to dose) 1 ea DAILY PRN MISC per pharmacy 09/22/19 01:15 10/22/19 01:14 Vancomycin/Sodium Chloride 275 ml @ 125 mls/hr Q8H IVPB 09/25/19 09:00 09/28/19 17:59 09/25/19 09:38 Vandana Marrufo M.D. Sep 25, 2019 10:23
[2019-09-25] MEDS ORDERED: Bacitracin Oint 15gm Tube TOPIC ONE (11:35)
[2019-09-25] MEDS ORDERED: Lidocaine HCl 2% Jelly 6ml Tube TOPIC ONE (11:35)
[2019-09-25] MEDS ORDERED: Bupivacaine w/Epi 0.5% 30ml Vial INJ ONE (11:36)
[2019-09-25] MEDS ORDERED: Lidocaine 1% 10mg/ml/Epi 0.005mg/ml 30ml vial INJ ONE (11:36)
--- NOTE | 2019-09-25 11:39 | Anethesia Preoperative Eval ---
Anesthesia Pre-op PMH/ROS General Date of Evaluation: Sep 25, 2019 Time of Evaluation: 12:01 Anesthesiologist: Eusebio ASA Score: ASA 2 - Emergency Mallampati Score Class I : Soft palate, uvula, fauces, pillars visible Class II: Soft palate, uvula, fauces visible Class III: Soft palate, base of uvula visible Class IV: Only hard plate visible Mallampati Classification: Class II Surgeon: Graciela Diagnosis: Perirectal Abscess Surgical Procedure: I&D Perirectal Abscess Anesthesia History: none Family History: no anesthesia problems Allergies: Coded Allergies: No Known Allergies (Unverified , 09/21/19) Medications: see eMAR Patient NPO?: Yes NPO Date: Sep 25, 2019 NPO Time: 0900 Past Medical History Cardiovascular: Reports: HTN Gastrointestinal/Genitourinary: Reports: other - Perirectal Abscess Anesthesia Pre-op Phys. Exam Physician Exam Last Vital Signs Date Time Temp Pulse Resp B/P (MAP) Pulse Ox O2 Delivery O2 Flow Rate FiO2 09/25/19 09:00 Room Air 09/25/19 08:00 98.3 84 18 133/62 (85) 98 09/25/19 07:40 21 Constitutional: NAD Neurologic: CN 2-12 intact Cardiovascular: RRR Respiratory: CTA Gastrointestinal: S/NT/ND Airway Exam Mallampati Score: Class II MO: limited ROM: limited Teeth: missing, intact Anesthesia Pre-op A/P Labs Hematology Test 09/25/19 05:00 White Blood Count 18.1 K/UL (4.8-10.8) H Red Blood Count 4.83 M/UL (4.70-6.10) Hemoglobin 15.3 G/DL (14.2-18.0) Hematocrit 43.9 % (42.0-52.0) Mean Corpuscular Volume 91 FL (80-99) Mean Corpuscular Hemoglobin 31.7 PG (27.0-31.0) H Mean Corpuscular Hemoglobin Concent 34.8 G/DL (32.0-36.0) Red Cell Distribution Width 12.9 % (11.6-14.8) Platelet Count 268 K/UL (150-450) Mean Platelet Volume 6.5 FL (6.5-10.1) Neutrophils (%) (Auto) % (45.0-75.0) Lymphocytes (%) (Auto) % (20.0-45.0) Monocytes (%) (Auto) % (1.0-10.0) Eosinophils (%) (Auto) % (0.0-3.0) Basophils (%) (Auto) % (0.0-2.0) Differential Total Cells Counted 100 Neutrophils % (Manual) 64 % (45-75) Lymphocytes % (Manual) 27 % (20-45) Monocytes % (Manual) 8 % (1-10) Eosinophils % (Manual) 1 % (0-3) Basophils % (Manual) 0 % (0-2) Band Neutrophils 0 % (0-8) Platelet Estimate Adequate Platelet Morphology Normal Red Blood Cell Morphology Normal Chemistry Test 09/25/19 05:00 Sodium Level 135 MMOL/L (136-145) L Potassium Level 4.6 MMOL/L (3.5-5.1) Chloride Level 100 MMOL/L (98-107) Carbon Dioxide Level 27 MMOL/L (21-32) Anion Gap 8 mmol/L (5-15) Blood Urea Nitrogen 14 mg/dL (7-18) Creatinine 0.9 MG/DL (0.55-1.30) Estimat Glomerular Filtration Rate > 60 mL/min (>60) Glucose Level 97 MG/DL (74-106) Calcium Level 9.0 MG/DL (8.5-10.1) Risk Assessment & Plan Assessment: ASA 2E Plan: TIVA Status Change Before Surgery: No Pre-Antibiotics Dru Gram Ancef IV Given Within 1 Hr of Incision: Yes Time Given: 12:16 Lino Kaplan MD Sep 25, 2019 11:39
[2019-09-25] MEDS ORDERED: Lidocaine 1% Plain 30 ml INJ ONE (11:41)
[2019-09-25] MEDS ORDERED: Sodium Chloride 10ml vial INJ ONE (11:41)
--- NOTE | 2019-09-25 11:44 | Pre-Procedure Note/Attestation ---
Pre-Procedure Note/Attestation Complete Prior to Procedure Planned Procedure: right Procedure Narrative: incision and drainage of perirectal / perineal abscess Indications for Procedure Pre-Operative Diagnosis: perirectal / perineal abscess Attestation I attest that I discussed the nature of the procedure; its benefits; risks and complications; and alternatives (and the risks and benefits of such alternatives ), prior to the procedure, with the patient (or the patient's legal farm loan representative). I attest that, if there was a reasonable possibility of needing a blood transfusion, the patient (or the patient's legal farm loan representative) was given the [facility] standardized written summary, pursuant to the Josias Cosmos Blood Safety Act ([place] Health and Safety Code # 1645, as amended). I attest that I re-evaluated the patient just prior to the surgery and that there has been no change in the patient's H&P, except as documented below: Jerson Owens Sep 25, 2019 11:44
[2019-09-25] MEDS ORDERED: LR 1000ml 1,000 ML IVLG SCH (11:49)
--- NOTE | 2019-09-25 11:49 | NUR ---
NURSE NOTES: Patient transported to OR for scheduled procedure by manager surgical Pedro. Consents signed. Pre-op checklist done. Patient is AxOx4, ID band on. PIV patent. Vital signs stable.
[2019-09-25] MEDS ORDERED: Acetaminophen (Non formulary) 100 ML IV ONE (12:00)
[2019-09-25] MEDS ORDERED: oxyCODONE HCL/Acetaminophen 5/325mg ORAL PRN (12:00)
[2019-09-25] MEDS ORDERED: LORazepam Inj 2mg/ml 1ml IV PRN (12:00)
[2019-09-25] MEDS ORDERED: Hydromorphone 0.5mg/0.5ml inj IVP PRN (12:00)
[2019-09-25] MEDS ORDERED: Labetalol 5mg/ml 20ml vial IV PRN (12:00)
[2019-09-25] MEDS ORDERED: DiphenhydrAMINE 50mg/ml Inj IVP PRN (12:00)
[2019-09-25] MEDS ORDERED: Atropine Sulfate 0.4mg/ml inj IVP PRN (12:00)
[2019-09-25] MEDS ORDERED: HYDROcodone/Acetamin 5/325 tab ORAL PRN (12:00)
[2019-09-25] MEDS ORDERED: HYDROcodone/Acetamin 7.5/325 tab ORAL PRN (12:00)
[2019-09-25] MEDS ORDERED: Midazolam 2mg/2ml Inj IVP PRN (12:00)
--- NOTE | 2019-09-25 12:01 | NUR ---
RD ASSESSMENT & RECOMMENDATIONS SEE CARE ACTIVITY FOR COMPLETE ASSESSMENT DAILY ESTIMATED NEEDS: Needs based on Abscess/ 64kg abw 25-30 kcals/kg 2312-0730 total kcals 1.25-1.5 g protein/kg 80-96 g total protein 25-30 mL/kg 7954-0841 total fluid mLs NUTRITION DIAGNOSIS: Increased kcal/prot needs R/T abscess, wound healing as evidenced by critically elev wbc upon adm (37.8-> 18.1 trending down), pending I&D of perineal and perirectal abscess. CURRENT DIET:REGULAR PO DIET RECOMMENDATIONS: Maintain regular diet ADDITIONAL RECOMMENDATIONS: * Monitor for continued good PO intake, need for additional snacks * Calibrated bedscale or standing wt for accurate CBW * Add MVI + Vit C to help w/ surgical wound healing
--- NOTE | 2019-09-25 12:10 | Surgery Progress Note ---
Surgery Progress Note Subjective Additional Comments leukocytosis more drainage of pus fluctuance in groin today needs to go to OR for exploration as not improving consent Objective Last 24 Hour Vital Signs Date Time Temp Pulse Resp B/P (MAP) Pulse Ox O2 Delivery O2 Flow Rate FiO2 09/25/19 09:00 Room Air 09/25/19 08:00 98.3 84 18 133/62 (85) 98 09/25/19 07:40 78 18 96 Room Air 21 09/25/19 04:55 97.3 63 17 118/74 (89) 96 09/24/19 21:00 Room Air 09/24/19 20:26 82 18 95 Room Air 21 09/24/19 20:00 98.4 71 16 111/65 (80) 98 09/24/19 16:00 98.4 72 17 109/63 (78) 99 09/24/19 14:55 98.5 I&O Intake and Output 09/24/19 09/25/19 19:00 07:00 Intake Total 220 ml 510 ml Balance 220 ml 510 ml Intake Oral 400 ml IV Total 220 ml 110 ml # Voids 8 Dressing: saturated Wound: other Drains: other Cardiovascular: RSR Respiratory: decreased breath sounds Abdomen: soft, non-tender, present bowel sounds Extremities: edema, tenderness, no cyanosis, other Laboratory Tests Test 09/25/19 05:00 White Blood Count 18.1 K/UL (4.8-10.8) H Red Blood Count 4.83 M/UL (4.70-6.10) Hemoglobin 15.3 G/DL (14.2-18.0) Hematocrit 43.9 % (42.0-52.0) Mean Corpuscular Volume 91 FL (80-99) Mean Corpuscular Hemoglobin 31.7 PG (27.0-31.0) H Mean Corpuscular Hemoglobin Concent 34.8 G/DL (32.0-36.0) Red Cell Distribution Width 12.9 % (11.6-14.8) Platelet Count 268 K/UL (150-450) Mean Platelet Volume 6.5 FL (6.5-10.1) Neutrophils (%) (Auto) % (45.0-75.0) Lymphocytes (%) (Auto) % (20.0-45.0) Monocytes (%) (Auto) % (1.0-10.0) Eosinophils (%) (Auto) % (0.0-3.0) Basophils (%) (Auto) % (0.0-2.0) Differential Total Cells Counted 100 Neutrophils % (Manual) 64 % (45-75) Lymphocytes % (Manual) 27 % (20-45) Monocytes % (Manual) 8 % (1-10) Eosinophils % (Manual) 1 % (0-3) Basophils % (Manual) 0 % (0-2) Band Neutrophils 0 % (0-8) Platelet Estimate Adequate Platelet Morphology Normal Red Blood Cell Morphology Normal Sodium Level 135 MMOL/L (136-145) L Potassium Level 4.6 MMOL/L (3.5-5.1) Chloride Level 100 MMOL/L (98-107) Carbon Dioxide Level 27 MMOL/L (21-32) Anion Gap 8 mmol/L (5-15) Blood Urea Nitrogen 14 mg/dL (7-18) Creatinine 0.9 MG/DL (0.55-1.30) Estimat Glomerular Filtration Rate > 60 mL/min (>60) Glucose Level 97 MG/DL (74-106) Calcium Level 9.0 MG/DL (8.5-10.1) Vancomycin Level Trough 7.6 ug/mL (5.0-12.0) Plan Problems: (1) Sepsis Assessment & Plan: Patient presents with abnormal labs, leukocytosis, scrotal cellulitis perineal cellulitis active infection. On evaluation at bedside patient continues to have packing left from his I&D which was not removed or cared for since incision and drainage. He states is very painful feels are comfortable. Packing dressings were removed by myself. No purulent drainage noted. Some cellulitis and edema around the perineum noted. Likely infectious source is this buttock abscess that is now perineal cellulitis as well. The CT was reviewed and gas identified but this is not seem like a Mary's gangrene or other severe process as it seems like he had a perirectal abscess that was drained and adequately furthermore placed on care plan with packing and dressings which have not been completed since. Now it is worsened. Will need to monitor closely. IV antibiotics. IV fluids. Discussed care plan with patient. Unfortunately he failed outpatient management and now requires inpatient care plan. May proceed with a larger incision and drainage if does not improve over the next 24 hours. Will monitor closely. Thank you for let me participate in patient's care worsening OR for exploration I&D (2) Abscess of buttock, right Assessment & Plan: Findings: There is considerable edema of the skin of the scrotum. This also extends into the penile shaft. There is infiltration of the pubic and suprapubic subcutaneous fat as well. Numerous gas bubbles are seen within the perineum, extending from the scrotum and to the posterior perineum. There is likewise edema of the surrounding skin. No discrete fluid collections are demonstrated. Dense material is seen associated with the air bubbles in the posterior perineum. This may be packing material related to prior incision and drainage as this appears to be deep to a superficial skin defect. A few gas bubbles are seen in the bilateral gluteus cristiano musculature. The bones are unremarkable. The pelvic viscera are unremarkable. Impression: Considerable edema of the scrotal wall, penile shaft, and superficial perineum. Given stated clinical history, likely indicates cellulitis Considerable gas within the perineum and anterior inferior right pubic region. This may be related to prior incision and drainage, but given that it extends well beyond the area of apparent incision extent the possibility of infection with a gas- forming organism should also be considered. Bilateral gluteal gas bubbles. May be related to recent injections, but the possibility of infectious process in this location should also be considered. Jerson Owens Sep 25, 2019 12:10
[2019-09-25] MEDS ORDERED: Succinylcholine 20mg/ml 10ml vial ONE (12:30)
[2019-09-25] MEDS ORDERED: Sterile Water Irrig 1000ml IRRIG ONE (12:30)
[2019-09-25] MEDS ORDERED: LR 1000ml ONE (12:30)
[2019-09-25] MEDS ORDERED: Propofol 200mg/20ml IV ONE (12:30)
[2019-09-25] MEDS ORDERED: NS Irrig 1000ml IRRIG ONE (12:31)
[2019-09-25] MEDS ORDERED: Betadine 4oz Bottle TOPIC ONE (12:45)
--- NOTE | 2019-09-25 12:53 | Immediate Post-Op Evaluation ---
Immediate Post-Op Evalulation Immediate Post-Op Evalulation Procedure: i & D Perirectal Abscess Date of Evaluation: Sep 25, 2019 Time of Evaluation: 13:17 IV Fluids: 200 LR Blood Products: 0 Estimated Blood Loss: 25 Urinary Output: 0 Blood Pressure Systolic: 122 Blood Pressure Diastolic: 74 Pulse Rate: 76 Respiratory Rate: 16 O2 Sat by Pulse Oximetry: 99 Temperature (Fahrenheit): 97.6 Pain Score (1-10): 2 Nausea: No Vomiting: No Complications 0 Patient Status: awake, reacts, patent, none Hydration Status: adequate Dru Gram Ancef IV Given Within 1 Hr of Incision: Yes Time Given: 12:16 Lino Kaplan MD Sep 25, 2019 12:53
--- NOTE | 2019-09-25 12:53 | 48 Hour Post Anesthesia Eval ---
Post Anesthesia Evaluation Procedure: i & D Perirectal Abscess Date of Evaluation: Sep 25, 2019 Time of Evaluation: 15:23 Blood Pressure Systolic: 131 0: 82 Pulse Rate: 67 Respiratory Rate: 18 Temperature (Fahrenheit): 97.8 O2 Sat by Pulse Oximetry: 99 Airway: patent Nausea: No Vomiting: No Pain Intensity: 2 Hydration Status: adequate Cardiopulmonary Status: Stable Mental Status/LOC: patient returned to baseline Follow-up Care/Observations: 0 Post-Anesthesia Complications: 0 Follow-up care needed: N/A Lino Kaplan MD Sep 25, 2019 12:53
--- NOTE | 2019-09-25 13:27 | Brief Operative Note ---
Immediate Post Operative Note Operative Note Pre-op Diagnosis: perirectal / perineal abscess Procedure: incision and drainage of perirectal / perineal abscess Post-op Diagnosis: same as pre-op Surgeon: amy Anesthesiologist: bakari Anesthesia: general, local Specimen: yes Complications: none Condition: stable Fluids: see records Estimated Blood Loss: minimal Drains: dewey Implant(s) used?: No Jerson Owens Sep 25, 2019 13:27
[2019-09-25] MEDS ORDERED: Sennosides 8.6mg tab ORAL PRN (13:30)
[2019-09-25] MEDS ORDERED: DiphenhydrAMINE 25mg Tab ORAL PRN (13:30)
[2019-09-25] MEDS ORDERED: Milk of Magnesia 30ml Ud ORAL PRN (13:30)
[2019-09-25] MEDS ORDERED: Miralax 17gm pkt ORAL PRN (13:45)
--- NOTE | 2019-09-25 14:15 | NUR ---
NURSE NOTES: Patient returned from surgery. Received bedside report from Carley CAZARES. Patient is AxOx4, awake, stable. Not in distress, no complaints of pain, tolerating room air. Does not c/o nausea. Vital signs prior to transport stable. Patient is S/P incision and drainage of perineal and perirectal abscess, dry dressing and tape placed over surgical site. Will continue to monitor.
--- NOTE | 2019-09-25 16:20 | NUR ---
CASE MANAGEMENT:REVIEW 09/25/2019 SI;S/P I&D OF PERIRECTAL/PERINEAL ABSCESS TODAY 98.3 84 18 133/62 98% ON RA WBC 18.1 NA 135 IS;VANCOMYCIN IV Q8 HRS FLAGYL PO Q8 HRS CEFEPIME IV Q12 HRS ZYVOX PO Q12 HRS HEPARIN SUBQ Q12 HRS MED SURG STATUS DCP; PATIENT IS FROM HOME CASE MANAGEMENT:REVIEW 09/24/2019 SI;RIGHT BUTTOCK ABSCESS. PERINEUM CELLULITIS. 98.2 59 14 109/67 94% ON RA WBC 19.2 BUN 19 IS;VANCOMYCIN IV Q8 HRS FLAGYL PO Q8 HRS CEFEPIME IV Q12 HRS ZYVOX PO Q12 HRS HEPARIN SUBQ Q12 HRS MED SURG STATUS DCP; PATIENT IS FROM HOME PLAN;MAY REQUIRE INCISION AND DRAINAGE CONTINUE ABX PER ID CASE MANAGEMENT:REVIEW 09/23/2019 SI;RIGHT BUTTOCK ABSCESS. PERINEUM CELLULITIS. 98.4 84 20 104/60 94% ON RA WBC 37.8 NA 135 BG 136 ALT 157 ALK PHOS 240 CRP 25.1 IS;VANCOMYCIN IV Q8 HRS FLAGYL PO Q8 HRS CEFEPIME IV Q12 HRS ZYVOX PO Q12 HRS HEPARIN SUBQ Q12 HRS MED SURG STATUS DCP; PATIENT IS FROM HOME PLAN;MAY REQUIRE INCISION AND DRAINAGE CONTINUE ABX PER ID
[2019-09-25] MEDS: HYDROcodone/Acetamin 10/325 tab ORAL PRN ×2 (16:26→20:40)
[2019-09-25] MEDS ORDERED: NS 275ml ONE (17:27)
[2019-09-25] MEDS ORDERED: Tubing IV Secondary IV ONE (17:27)
[2019-09-25] MEDS: Docusate 100mg cap ORAL SCH (17:30)
--- NOTE | 2019-09-25 18:31 | Internal Med Progress Note ---
Subjective Date of Service: Sep 25, 2019 Physician Name LopezRavi Attending Physician Sheldon Webster MD Current Medications Medications (Trade) Dose Ordered Sig/Jasiel Route PRN Reason Start Time Stop Time Status Last Admin Dose Admin Acetaminophen (Tylenol) 650 mg Q4H PRN ORAL FEVER 09/25/19 13:30 10/25/19 13:29 Acetaminophen/ Hydrocodone Bitart ([place] 10/325) 1 tab Q4H PRN ORAL Severe Pain (Pain Scale 7-10) 09/25/19 13:30 10/02/19 13:29 09/25/19 16:26 Acetaminophen/ Hydrocodone Bitart ([place] 5/325) 1 tab Q1H PRN ORAL Mild Pain (Pain Scale 1-3) 09/25/19 12:00 09/25/19 20:00 Acetaminophen/ Hydrocodone Bitart ([place] 5/325) 1 tab Q4H PRN ORAL Moderate Pain (Pain Scale 4-6) 09/25/19 13:30 10/02/19 13:29 Acetaminophen/ Hydrocodone Bitart ([place] 7.5/325) 1 tab Q1H PRN ORAL Moderate Pain (Pain Scale 4-6) 09/25/19 12:00 09/25/19 20:00 Al Hydroxide/Mg Hydroxide (Mylanta) 15 ml Q1H PRN ORAL gi upset 09/25/19 12:00 09/25/19 20:00 Al Hydroxide/Mg Hydroxide (Mylanta) 15 ml Q6H PRN ORAL DYSPEPSIA 09/25/19 13:30 10/25/19 13:29 Albuterol/ Ipratropium (Albuterol/ Ipratropium) 3 ml Q4H PRN HHN Shortness of Breath 09/22/19 00:45 09/27/19 00:44 Atropine Sulfate (Atropine 0.4mg/ ml) 0.5 mg Q5M PRN IVP HR<40 BPM 09/25/19 12:00 09/25/19 20:00 Cefepime HCl 2 gm/ Dextrose 110 ml @ 220 mls/hr EVERY 12 HOURS IV 09/22/19 09:00 09/29/19 08:59 09/25/19 08:08 Dextrose (Dextrose 50%) 25 ml Q30M PRN IV Hypoglycemia 09/22/19 00:45 12/21/19 00:44 Dextrose (Dextrose 50%) 50 ml Q30M PRN IV Hypoglycemia 09/22/19 00:45 12/21/19 00:44 Diphenhydramine HCl (Benadryl) 25 mg Q15M PRN IVP Itching 09/25/19 12:00 09/25/19 20:00 Diphenhydramine HCl (Benadryl) 25 mg Q8H PRN ORAL Itching/Pruritis 09/25/19 13:30 10/25/19 13:29 Docusate Sodium (Colace) 100 mg TWICE A DAY ORAL 09/25/19 18:00 10/25/19 17:59 09/25/19 17:30 Heparin Sodium (Porcine) (Heparin 5000 units/ml) 5,000 units EVERY 12 HOURS SUBQ 09/22/19 09:00 11/06/19 08:59 09/25/19 08:10 Hydralazine HCl (Apresoline) 5 mg Q30M PRN IV SBP>160 / DBP>90 09/25/19 12:00 09/25/19 20:00 Hydromorphone HCl (Dilaudid) 0.5 mg Q15M PRN IVP Severe Pain (Pain Scale 7-10) 09/25/19 12:00 09/25/19 20:00 09/25/19 13:37 Labetalol HCl (Normodyne) 5 mg Q10M PRN IV SBP>160 / DBP>90 09/25/19 12:00 09/25/19 20:00 Linezolid (Zyvox) 600 mg EVERY 12 HOURS ORAL 09/25/19 10:30 09/30/19 10:29 Lorazepam (Ativan 2mg/ml 1ml) 1 mg Q15M PRN IV For Anxiety 09/25/19 12:00 09/25/19 20:00 Magnesium Hydroxide (Mom) 30 ml BIDPRN PRN ORAL Constipation 09/25/19 13:30 10/25/19 13:29 Metronidazole (Flagyl) 500 mg Q8HR ORAL 09/22/19 14:15 09/29/19 14:14 09/25/19 14:54 Midazolam HCl (Versed 2mg/2ml vial) 1 mg Q15M PRN IVP For Anxiety 09/25/19 12:00 09/25/19 20:00 Nitroglycerin (Ntg) 0.4 mg Every 5 Minutes PRN SL Prn Chest Pain 09/22/19 00:45 10/22/19 00:44 Ondansetron HCl (Zofran) 4 mg Q1H PRN IVP Nausea & Vomiting 09/25/19 12:00 09/25/19 20:00 Ondansetron HCl (Zofran) 4 mg Q6H PRN IVP Nausea & Vomiting 09/25/19 13:30 10/25/19 13:29 Oxycodone/ Acetaminophen (Percocet 5-325) 1 tab Q1H PRN ORAL Severe Pain (Pain Scale 7-10) 09/25/19 12:00 09/25/19 20:00 Polyethylene Glycol (Miralax) 17 gm DAILYPRN PRN ORAL Constipation 09/25/19 13:45 10/22/19 00:44 Sennosides (Senokot) 8.6 mg BIDPRN PRN ORAL Constipation 09/25/19 13:30 10/25/19 13:29 Temazepam (RestoriL) 7.5 mg DAILYPRN PRN ORAL Insomnia 09/25/19 13:30 10/02/19 13:29 Allergies: Coded Allergies: No Known Allergies (Unverified , 09/21/19) ROS Limited/Unobtainable: No Constitutional: Reports: no symptoms HEENT: Reports: no symptoms Cardiovascular: Reports: no symptoms Respiratory: Reports: no symptoms Gastrointestinal/Abdominal: Reports: no symptoms Genitourinary: Reports: no symptoms Neurologic/Psychiatric: Reports: no symptoms Subjective 39 YO M admitted with right buttock abscess and cellulitis perineum. Cover for Int Med-DR Webster Objective Last Vital Signs Date Time Temp Pulse Resp B/P (MAP) Pulse Ox O2 Delivery O2 Flow Rate FiO2 09/25/19 16:00 98.4 98 20 130/75 (93) 97 09/25/19 13:45 Nasal Cannula 3 09/25/19 07:40 21 Laboratory Tests Test 09/25/19 05:00 White Blood Count 18.1 K/UL (4.8-10.8) H Red Blood Count 4.83 M/UL (4.70-6.10) Hemoglobin 15.3 G/DL (14.2-18.0) Hematocrit 43.9 % (42.0-52.0) Mean Corpuscular Volume 91 FL (80-99) Mean Corpuscular Hemoglobin 31.7 PG (27.0-31.0) H Mean Corpuscular Hemoglobin Concent 34.8 G/DL (32.0-36.0) Red Cell Distribution Width 12.9 % (11.6-14.8) Platelet Count 268 K/UL (150-450) Mean Platelet Volume 6.5 FL (6.5-10.1) Neutrophils (%) (Auto) % (45.0-75.0) Lymphocytes (%) (Auto) % (20.0-45.0) Monocytes (%) (Auto) % (1.0-10.0) Eosinophils (%) (Auto) % (0.0-3.0) Basophils (%) (Auto) % (0.0-2.0) Differential Total Cells Counted 100 Neutrophils % (Manual) 64 % (45-75) Lymphocytes % (Manual) 27 % (20-45) Monocytes % (Manual) 8 % (1-10) Eosinophils % (Manual) 1 % (0-3) Basophils % (Manual) 0 % (0-2) Band Neutrophils 0 % (0-8) Platelet Estimate Adequate Platelet Morphology Normal Red Blood Cell Morphology Normal Sodium Level 135 MMOL/L (136-145) L Potassium Level 4.6 MMOL/L (3.5-5.1) Chloride Level 100 MMOL/L (98-107) Carbon Dioxide Level 27 MMOL/L (21-32) Anion Gap 8 mmol/L (5-15) Blood Urea Nitrogen 14 mg/dL (7-18) Creatinine 0.9 MG/DL (0.55-1.30) Estimat Glomerular Filtration Rate > 60 mL/min (>60) Glucose Level 97 MG/DL (74-106) Calcium Level 9.0 MG/DL (8.5-10.1) Vancomycin Level Trough 7.6 ug/mL (5.0-12.0) Microbiology Date/Time Source Procedure Growth Status 09/23/19 11:28 Nose MRSA Culture - Final NO METHICILLIN RESISTANT STAPH AUREUS... Complete Intake and Output 09/24/19 09/25/19 19:00 07:00 Intake Total 220 ml 510 ml Balance 220 ml 510 ml Intake Oral 400 ml IV Total 220 ml 110 ml # Voids 8 Objective PHYSICAL EXAMINATION: GENERAL: The patient is awake and responsive, in no acute distress. HEAD AND NECK EXAMINATION: Pupils are equal and reactive to light. Extraocular movements intact. Neck was supple. No JVD. LUNGS: Clear. No wheezing or rales. HEART: S1, S2. Regular rhythm. No gallops. ABDOMEN: Soft and nontender. Mildly obese. EXTREMITIES: No cyanosis, clubbing, or edema. PELVIC: The patient has right buttock area drainage abscess as well as scrotum was erythema and edematous. NEUROLOGIC: OPTOMETRIC COORDINATOR II through XII are grossly normal. The patient moving all extremities. Gait is intact. Assessment/Plan Problem List: (1) Leukocytosis Assessment & Plan: Due to abscess/cellulitis; continue antibiotics per ID (2) Cellulitis, perineum Assessment & Plan: continue linezolid, flagyl and cefepime per ID=Dr Moreau (3) Abscess of buttock, right Assessment & Plan: May require Incision and drainage. See surgery note=Ravi Balderas MD Sep 25, 2019 18:31
--- NOTE | 2019-09-25 23:30 | Operative Note - Dictated ---
DATE OF OPERATION: 09/25/2019 PREOPERATIVE DIAGNOSIS: Perirectal/perineal abscess. POSTOPERATIVE DIAGNOSIS: Perirectal/perineal abscess. OPERATION PERFORMED: Incision and drainage of perirectal and perineal abscess. ATTENDING SURGEON: Jerson Owens MD. SPECIAL POPULATION PARAPROFESSIONAL: None. ANESTHESIOLOGIST: Lino Kaplan MD. ANESTHESIA: MAC plus local. ESTIMATED BLOOD LOSS: Minimal. IV FLUIDS: Please see anesthesia records. COMPLICATIONS: None. DRAINS: Kin three-fourth inch x2. COUNTS: Sponge and needle count correct x2. WOUND CLASSIFICATION: Class IV. SPECIMENS: Cultures taken for Microbiology. ANTIBIOTICS: The patient on scheduled IV antibiotics per Infectious Disease. INDICATIONS FOR PROCEDURE: This is a 39-year-old male who approximately a week ago developed a perianal abscess, status post incision and drainage at urgent care, but probably it was inadequate and did not note that he had a significant amount of packing left in place for a few days and his condition worsened. He came to [facility] for evaluation, was admitted, and seen by myself. The packing was removed and initially, the patient did well. CT was reviewed and exam. He was monitored on IV antibiotics. In the past 24-48 hours, he developed more fluctuance and cellulitis around the perineal and perianal area and has developed more purulent drainage. Therefore, surgery was indicated and recommended. Risks, benefits, and alternatives were discussed with the patient in detail. He expressed understanding and consented for the procedure. OPERATIVE NOTE: The patient was taken to the operating room and placed on the operating table in the supine position with all bony prominences well padded. SCDs were placed. Preoperative time-out taken in identifying the patient, procedure, operative staff, and surgical staff. The patient was made comfortable by anesthesiologist with MAC anesthesia. The patient was placed in stirrups in lithotomy position. The perianal and perirectal region were prepped and draped in standard surgical fashion. The prior incision was identified that was made by the outside facility, at only about a centimeter long in the right proximal perirectal area. Local anesthetic was infiltrated and the area of fluctuance was identified. Three separate counterincisions were made, one in the right pubic area, one in the right groin just lateral to the scrotum, and the prior right perirectal was extended. All three incisions were evaluated between and noted the tracking from the perirectal and perianal region all the way to the perineal region with pus being drained throughout the wound cavity. Once the incisions were made, the cavity was irrigated with copious amounts of warm normal saline. Following this, the wound bed was evaluated. Hemostasis was noted. At this time, given the locations and the counterincisions, it was converted to one large incision, which the counterincisions were thought to be more congested to healing and improvement. Therefore, Kin drains were decided to be left between the counterincisions. A three-fourth inch Marion was brought into the operative field and placed between the incisions connecting them for appropriate drainage with associated packing to be done. The Marion drain was placed between the pubic and the groin incision and then sutured together using 2-0 nylon sutures. A second Kin was placed between the groin and the perirectal incision, and the ends were sutured using 2-0 nylon suture. At this time, the wound bed was irrigated again and hemostasis was noted. The packing was placed in all three incisions. Dressings were applied. The patient tolerated the procedure well and was taken to postanesthesia care unit in stable condition. Jerson Owens M.D. DR: Judy JOB#: [id number] CC:
[2019-09-26] VITALS: BP 113/73
[2019-09-26 04:00] VITALS: BP 124/72
[2019-09-26] MEDS: metroNIDAZOLE 500mg tab ORAL SCH ×3 (05:01→21:48)
[2019-09-26] MEDS: HYDROcodone/Acetamin 10/325 tab ORAL PRN ×3 (05:02→13:27)
--- NOTE | 2019-09-26 06:56 | NUR ---
NURSE NOTES: Patient had a normal BM. Some parts of the dressing were stained with BM. Cleaned. Didn't unpack but dressings reinforced.
[2019-09-26 07:02] LABS: ANION GAP 8 mmol/L (5-15); BLOOD UREA NITROGEN 13 mg/dL (7-18); CALCIUM 8.6 MG/DL (8.5-10.1); CARBON DIOXIDE 26 MMOL/L (21-32); CHLORIDE 100 MMOL/L (98-107); CREATININE 1.1 MG/DL (0.55-1.30); POTASSIUM 5.4 MMOL/L (3.5-5.1); SODIUM 134 MMOL/L (136-145)
[2019-09-26 07:25] LABS: HEMATOCRIT 44.6 % (42.0-52.0); HEMOGLOBIN 15.3 G/DL (14.2-18.0); MEAN CORPUSCULAR VOLUME 93 FL (80-99); PLATELET COUNT 301 K/UL (150-450); RED BLOOD COUNT 4.78 M/UL (4.70-6.10); RED CELL DISTRIBUTION WIDTH 11.6 % (11.6-14.8); WHITE BLOOD COUNT 19.5 K/UL (4.8-10.8)
--- NOTE | 2019-09-26 07:43 | NUR ---
HAND-OFF: Report given to SAGE Goff.
[2019-09-26 08:00] VITALS: BP 135/78
[2019-09-26] MEDS: Cefepime HCl 2 GM in D5W 110 ML IV SCH ×2 (08:29→21:48)
[2019-09-26] MEDS: Docusate 100mg cap ORAL SCH ×3 (08:29→18:30)
[2019-09-26] MEDS: Heparin 5000 units/ml inj SUBQ SCH ×2 (08:36→21:50)
--- NOTE | 2019-09-26 09:54 | NUR ---
CASE MANAGEMENT: REVIEW SI: ABSCESS RIGHT BUTTOCK . SEPSIS . PERIRECTAL / PERINEAL ABSCESS I&D PERIRECTAL / PERINEAL ABSCESS 09/24 T 98.4 HR 82 RR 20 BP 135/78 SAT 98% ROOM AIR WBC 19.5 NA 134 CULTURE PENDING IS: CEFEPIME IV Q12HR FLAGYL PO Q8HR ZYVOX PO Q12HR HEPARIN SUBQ Q12HR MED/SURG STATUS DCP: PATIENT IS FROM HOME
[2019-09-26 12:00] VITALS: BP 138/80
--- NOTE | 2019-09-26 12:52 | Infectious Diseases Prog Note ---
Assessment/Plan Assessment/Plan Afebrile Leukocytosis; overall improved -CT chest: There is mild left basilar atelectasis. No consolidating infiltrates are identified. Sepsis Buttock abscess-r/o necrotizing infection -09/24 SP I+D --cx p -s/p I+D (outpt clinic [facility]) -wound cx CONS, E. faecium (S amp, vanco), E. avium (S amp, vanco) -CT abd/p: Considerable edema of the scrotal wall, penile shaft, and superficial perineum. Given stated clinical history, likely indicates cellulitis. Considerable gas within the perineum and anterior inferior right pubic region. This may be related to prior incision and drainage, but given that it extends well beyond the area of apparent incision extent the possibility of infection with a gas-forming organism should also be considered. Bilateral gluteal gas bubbles. May be related to recent injections, but the possibility of infectious process in this location should also be considered. Plan: Switch cefepime, flagyl #4, Linezolid #2 to Zosyn -09/24 SP IV Vancomycin #3 monitor temp and cbc f/u wound cx f/u BCx Sx f/u DW RN Subjective Allergies: Coded Allergies: No Known Allergies (Unverified , 09/21/19) Subjective afebrile wbc bt 18-19 sp I+D yesterday Objective Vital Signs Last 24 Hour Vital Signs Date Time Temp Pulse Resp B/P (MAP) Pulse Ox O2 Delivery O2 Flow Rate FiO2 09/26/19 12:00 98.5 84 19 138/80 (99) 97 09/26/19 09:00 Room Air 09/26/19 08:00 98.4 82 20 135/78 (97) 98 09/26/19 07:00 82 18 98 Room Air 21 09/26/19 04:00 97.9 82 20 124/72 (89) 97 09/26/19 00:00 97.7 75 18 113/73 (86) 97 09/25/19 21:00 Room Air 09/25/19 20:00 75 18 97 Room Air 21 09/25/19 20:00 80 18 121/74 (90) 97 09/25/19 16:00 98.4 98 20 130/75 (93) 97 09/25/19 13:45 97.3 61 16 139/86 99 Nasal Cannula 3 09/25/19 13:30 62 17 130/84 97 Nasal Cannula 3 09/25/19 13:25 60 18 138/87 98 Nasal Cannula 3 09/25/19 13:18 62 17 131/85 100 Simple Mask 6 09/25/19 13:10 65 14 127/86 100 Simple Mask 6 09/25/19 13:04 67 18 99 09/25/19 13:02 76 16 99 09/25/19 13:00 97.6 71 16 132/82 100 Simple Mask 6 Height (Feet): 5 Height (Inches): 2.00 Weight (Pounds): 173 Objective Gen: NAd. well nourished. well hydrated HEENT: anicteric sclera CV: RRR. S1+S2. no rubs or gallop Resp: RRR. CTAB. no wheezes or crackles. Abd: soft. no TTP. nondistended Buttock: R buttock erythema, induration, swelling, tenderness--improving. Laboratory Tests Test 09/26/19 05:00 White Blood Count 19.5 K/UL (4.8-10.8) H Red Blood Count 4.78 M/UL (4.70-6.10) Hemoglobin 15.3 G/DL (14.2-18.0) Hematocrit 44.6 % (42.0-52.0) Mean Corpuscular Volume 93 FL (80-99) Mean Corpuscular Hemoglobin 32.1 PG (27.0-31.0) H Mean Corpuscular Hemoglobin Concent 34.4 G/DL (32.0-36.0) Red Cell Distribution Width 11.6 % (11.6-14.8) Platelet Count 301 K/UL (150-450) Mean Platelet Volume 6.5 FL (6.5-10.1) Neutrophils (%) (Auto) % (45.0-75.0) Lymphocytes (%) (Auto) % (20.0-45.0) Monocytes (%) (Auto) % (1.0-10.0) Eosinophils (%) (Auto) % (0.0-3.0) Basophils (%) (Auto) % (0.0-2.0) Differential Total Cells Counted 100 Neutrophils % (Manual) 79 % (45-75) H Lymphocytes % (Manual) 16 % (20-45) L Monocytes % (Manual) 4 % (1-10) Eosinophils % (Manual) 0 % (0-3) Basophils % (Manual) 0 % (0-2) Band Neutrophils 1 % (0-8) Platelet Estimate Adequate Platelet Morphology Normal Red Blood Cell Morphology Normal Sodium Level 134 MMOL/L (136-145) L Potassium Level 5.4 MMOL/L (3.5-5.1) H Chloride Level 100 MMOL/L (98-107) Carbon Dioxide Level 26 MMOL/L (21-32) Anion Gap 8 mmol/L (5-15) Blood Urea Nitrogen 13 mg/dL (7-18) Creatinine 1.1 MG/DL (0.55-1.30) Estimat Glomerular Filtration Rate > 60 mL/min (>60) Glucose Level 119 MG/DL (74-106) H Calcium Level 8.6 MG/DL (8.5-10.1) Current Medications Medications (Trade) Dose Ordered Sig/Jasiel Route PRN Reason Start Time Stop Time Status Last Admin Dose Admin Acetaminophen (Tylenol) 650 mg Q4H PRN ORAL FEVER 09/25/19 13:30 10/25/19 13:29 Acetaminophen/ Hydrocodone Bitart ([place] 10/325) 1 tab Q4H PRN ORAL Severe Pain (Pain Scale 7-10) 09/25/19 13:30 10/02/19 13:29 09/26/19 09:20 Acetaminophen/ Hydrocodone Bitart ([place] 5/325) 1 tab Q4H PRN ORAL Moderate Pain (Pain Scale 4-6) 09/25/19 13:30 10/02/19 13:29 Al Hydroxide/Mg Hydroxide (Mylanta) 15 ml Q6H PRN ORAL DYSPEPSIA 09/25/19 13:30 10/25/19 13:29 Albuterol/ Ipratropium (Albuterol/ Ipratropium) 3 ml Q4H PRN HHN Shortness of Breath 09/22/19 00:45 09/27/19 00:44 Cefepime HCl 2 gm/ Dextrose 110 ml @ 220 mls/hr EVERY 12 HOURS IV 09/22/19 09:00 09/29/19 08:59 09/26/19 08:29 Dextrose (Dextrose 50%) 25 ml Q30M PRN IV Hypoglycemia 09/22/19 00:45 12/21/19 00:44 Dextrose (Dextrose 50%) 50 ml Q30M PRN IV Hypoglycemia 09/22/19 00:45 12/21/19 00:44 Diphenhydramine HCl (Benadryl) 25 mg Q8H PRN ORAL Itching/Pruritis 09/25/19 13:30 10/25/19 13:29 Docusate Sodium (Colace) 100 mg TWICE A DAY ORAL 09/25/19 18:00 10/25/19 17:59 09/26/19 08:29 Heparin Sodium (Porcine) (Heparin 5000 units/ml) 5,000 units EVERY 12 HOURS SUBQ 09/22/19 09:00 11/06/19 08:59 09/26/19 08:36 Linezolid (Zyvox) 600 mg EVERY 12 HOURS ORAL 09/25/19 10:30 09/30/19 10:29 09/26/19 08:29 Magnesium Hydroxide (Mom) 30 ml BIDPRN PRN ORAL Constipation 09/25/19 13:30 10/25/19 13:29 Metronidazole (Flagyl) 500 mg Q8HR ORAL 09/22/19 14:15 09/29/19 14:14 09/26/19 05:01 Nitroglycerin (Ntg) 0.4 mg Every 5 Minutes PRN SL Prn Chest Pain 09/22/19 00:45 10/22/19 00:44 Ondansetron HCl (Zofran) 4 mg Q6H PRN IVP Nausea & Vomiting 09/25/19 13:30 10/25/19 13:29 Polyethylene Glycol (Miralax) 17 gm DAILYPRN PRN ORAL Constipation 09/25/19 13:45 10/22/19 00:44 Sennosides (Senokot) 8.6 mg BIDPRN PRN ORAL Constipation 09/25/19 13:30 10/25/19 13:29 Temazepam (RestoriL) 7.5 mg DAILYPRN PRN ORAL Insomnia 09/25/19 13:30 10/02/19 13:29 Vandana Marrufo M.D. Sep 26, 2019 12:52
--- NOTE | 2019-09-26 13:22 | Pulmonology Progress Note ---
Assessment/Plan Problems: (1) Sepsis (2) Abscess of buttock, right Assessment/Plan doing better wound care s/p drainage check cultures again] abx as per iD Subjective ROS Limited/Unobtainable: No Allergies: Coded Allergies: No Known Allergies (Unverified , 09/21/19) Objective Last 24 Hour Vital Signs Date Time Temp Pulse Resp B/P (MAP) Pulse Ox O2 Delivery O2 Flow Rate FiO2 09/26/19 12:00 98.5 84 19 138/80 (99) 97 09/26/19 09:00 Room Air 09/26/19 08:00 98.4 82 20 135/78 (97) 98 09/26/19 07:00 82 18 98 Room Air 21 09/26/19 04:00 97.9 82 20 124/72 (89) 97 09/26/19 00:00 97.7 75 18 113/73 (86) 97 09/25/19 21:00 Room Air 09/25/19 20:00 75 18 97 Room Air 21 09/25/19 20:00 80 18 121/74 (90) 97 09/25/19 16:00 98.4 98 20 130/75 (93) 97 09/25/19 13:45 97.3 61 16 139/86 99 Nasal Cannula 3 09/25/19 13:30 62 17 130/84 97 Nasal Cannula 3 09/25/19 13:25 60 18 138/87 98 Nasal Cannula 3 Intake and Output 09/25/19 09/26/19 19:00 07:00 Intake Total 900 ml 410 ml Output Total 500 ml Balance 400 ml 410 ml Intake Oral 800 ml 300 ml IV Total 100 ml 110 ml Output Urine Total 500 ml # Voids 4 7 # Bowel Movements 1 General Appearance: WD/WN HEENT: normocephalic, atraumatic Respiratory/Chest: chest wall non-tender, lungs clear Cardiovascular: normal peripheral pulses, normal rate Abdomen: non distended Skin: no ulcers Laboratory Tests 09/26/19 05:00: White Blood Count 19.5H, Red Blood Count 4.78, Hemoglobin 15.3, Hematocrit 44.6 , Mean Corpuscular Volume 93, Mean Corpuscular Hemoglobin 32.1H, Mean Corpuscular Hemoglobin Concent 34.4, Red Cell Distribution Width 11.6, Platelet Count 301, Mean Platelet Volume 6.5, Neutrophils (%) (Auto) , Lymphocytes (%) ( Auto) , Monocytes (%) (Auto) , Eosinophils (%) (Auto) , Basophils (%) (Auto) , Differential Total Cells Counted 100, Neutrophils % (Manual) 79H, Lymphocytes % (Manual) 16L, Monocytes % (Manual) 4, Eosinophils % (Manual) 0, Basophils % ( Manual) 0, Band Neutrophils 1, Platelet Estimate Adequate, Platelet Morphology Normal, Red Blood Cell Morphology Normal, Sodium Level 134L, Potassium Level 5.4H, Chloride Level 100, Carbon Dioxide Level 26, Anion Gap 8, Blood Urea Nitrogen 13, Creatinine 1.1, Estimat Glomerular Filtration Rate > 60, Glucose Level 119H, Calcium Level 8.6 Current Medications Medications (Trade) Dose Ordered Sig/Jasiel Route PRN Reason Start Time Stop Time Status Last Admin Dose Admin Acetaminophen (Tylenol) 650 mg Q4H PRN ORAL FEVER 09/25/19 13:30 10/25/19 13:29 Acetaminophen/ Hydrocodone Bitart ([place] 10/325) 1 tab Q4H PRN ORAL Severe Pain (Pain Scale 7-10) 09/25/19 13:30 10/02/19 13:29 09/26/19 09:20 Acetaminophen/ Hydrocodone Bitart ([place] 5/325) 1 tab Q4H PRN ORAL Moderate Pain (Pain Scale 4-6) 09/25/19 13:30 10/02/19 13:29 Al Hydroxide/Mg Hydroxide (Mylanta) 15 ml Q6H PRN ORAL DYSPEPSIA 09/25/19 13:30 10/25/19 13:29 Albuterol/ Ipratropium (Albuterol/ Ipratropium) 3 ml Q4H PRN HHN Shortness of Breath 09/22/19 00:45 09/27/19 00:44 Cefepime HCl 2 gm/ Dextrose 110 ml @ 220 mls/hr EVERY 12 HOURS IV 09/22/19 09:00 09/29/19 08:59 09/26/19 08:29 Dextrose (Dextrose 50%) 25 ml Q30M PRN IV Hypoglycemia 09/22/19 00:45 12/21/19 00:44 Dextrose (Dextrose 50%) 50 ml Q30M PRN IV Hypoglycemia 09/22/19 00:45 12/21/19 00:44 Diphenhydramine HCl (Benadryl) 25 mg Q8H PRN ORAL Itching/Pruritis 09/25/19 13:30 10/25/19 13:29 Docusate Sodium (Colace) 100 mg TWICE A DAY ORAL 09/25/19 18:00 10/25/19 17:59 09/26/19 08:29 Heparin Sodium (Porcine) (Heparin 5000 units/ml) 5,000 units EVERY 12 HOURS SUBQ 09/22/19 09:00 11/06/19 08:59 09/26/19 08:36 Linezolid (Zyvox) 600 mg EVERY 12 HOURS ORAL 09/25/19 10:30 09/30/19 10:29 09/26/19 08:29 Magnesium Hydroxide (Mom) 30 ml BIDPRN PRN ORAL Constipation 09/25/19 13:30 10/25/19 13:29 Metronidazole (Flagyl) 500 mg Q8HR ORAL 09/22/19 14:15 09/29/19 14:14 09/26/19 05:01 Nitroglycerin (Ntg) 0.4 mg Every 5 Minutes PRN SL Prn Chest Pain 09/22/19 00:45 10/22/19 00:44 Ondansetron HCl (Zofran) 4 mg Q6H PRN IVP Nausea & Vomiting 09/25/19 13:30 10/25/19 13:29 Polyethylene Glycol (Miralax) 17 gm DAILYPRN PRN ORAL Constipation 09/25/19 13:45 10/22/19 00:44 Sennosides (Senokot) 8.6 mg BIDPRN PRN ORAL Constipation 09/25/19 13:30 10/25/19 13:29 Temazepam (RestoriL) 7.5 mg DAILYPRN PRN ORAL Insomnia 09/25/19 13:30 10/02/19 13:29 Christiano Thomas MD Sep 26, 2019 13:22
--- NOTE | 2019-09-26 13:47 | NUR ---
NURSE NOTES: DR ROLAND MADE AWARE PT'S POTASSIUM 5.4 AND SODIUM 134. PER DR ROLAND, DR WAITE IS ON THE CASE. NO NOTES FROM DR WAITE FOUND. RN LEFT MESSAGE FOR DR ROLAND IF HE WOULD LIKE TO PLACE NEPHROLOGY CONSULT FOR DR WAITE.
--- NOTE | 2019-09-26 14:03 | Surgery Progress Note ---
Surgery Progress Note Subjective Procedure Performed incision and drainage of perirectal / perineal abscess Symptoms: improved, pain same, tolerating diet, voiding well, passing flatus Objective Last 24 Hour Vital Signs Date Time Temp Pulse Resp B/P (MAP) Pulse Ox O2 Delivery O2 Flow Rate FiO2 09/26/19 12:00 98.5 84 19 138/80 (99) 97 09/26/19 09:00 Room Air 09/26/19 08:00 98.4 82 20 135/78 (97) 98 09/26/19 07:00 82 18 98 Room Air 21 09/26/19 04:00 97.9 82 20 124/72 (89) 97 09/26/19 00:00 97.7 75 18 113/73 (86) 97 09/25/19 21:00 Room Air 09/25/19 20:00 75 18 97 Room Air 21 09/25/19 20:00 80 18 121/74 (90) 97 09/25/19 16:00 98.4 98 20 130/75 (93) 97 I&O Intake and Output 09/25/19 09/26/19 19:00 07:00 Intake Total 900 ml 410 ml Output Total 500 ml Balance 400 ml 410 ml Intake Oral 800 ml 300 ml IV Total 100 ml 110 ml Output Urine Total 500 ml # Voids 4 7 # Bowel Movements 1 Dressing: saturated Wound: other Drains: dewey Cardiovascular: RSR Respiratory: clear Abdomen: soft, flat, non-tender, present bowel sounds Extremities: no tenderness, no cyanosis Laboratory Tests Test 09/26/19 05:00 White Blood Count 19.5 K/UL (4.8-10.8) H Red Blood Count 4.78 M/UL (4.70-6.10) Hemoglobin 15.3 G/DL (14.2-18.0) Hematocrit 44.6 % (42.0-52.0) Mean Corpuscular Volume 93 FL (80-99) Mean Corpuscular Hemoglobin 32.1 PG (27.0-31.0) H Mean Corpuscular Hemoglobin Concent 34.4 G/DL (32.0-36.0) Red Cell Distribution Width 11.6 % (11.6-14.8) Platelet Count 301 K/UL (150-450) Mean Platelet Volume 6.5 FL (6.5-10.1) Neutrophils (%) (Auto) % (45.0-75.0) Lymphocytes (%) (Auto) % (20.0-45.0) Monocytes (%) (Auto) % (1.0-10.0) Eosinophils (%) (Auto) % (0.0-3.0) Basophils (%) (Auto) % (0.0-2.0) Differential Total Cells Counted 100 Neutrophils % (Manual) 79 % (45-75) H Lymphocytes % (Manual) 16 % (20-45) L Monocytes % (Manual) 4 % (1-10) Eosinophils % (Manual) 0 % (0-3) Basophils % (Manual) 0 % (0-2) Band Neutrophils 1 % (0-8) Platelet Estimate Adequate Platelet Morphology Normal Red Blood Cell Morphology Normal Sodium Level 134 MMOL/L (136-145) L Potassium Level 5.4 MMOL/L (3.5-5.1) H Chloride Level 100 MMOL/L (98-107) Carbon Dioxide Level 26 MMOL/L (21-32) Anion Gap 8 mmol/L (5-15) Blood Urea Nitrogen 13 mg/dL (7-18) Creatinine 1.1 MG/DL (0.55-1.30) Estimat Glomerular Filtration Rate > 60 mL/min (>60) Glucose Level 119 MG/DL (74-106) H Calcium Level 8.6 MG/DL (8.5-10.1) Plan Problems: (1) Sepsis Assessment & Plan: Patient presents with abnormal labs, leukocytosis, scrotal cellulitis perineal cellulitis active infection. On evaluation at bedside patient continues to have packing left from his I&D which was not removed or cared for since incision and drainage. He states is very painful feels are comfortable. Packing dressings were removed by myself. No purulent drainage noted. Some cellulitis and edema around the perineum noted. Likely infectious source is this buttock abscess that is now perineal cellulitis as well. The CT was reviewed and gas identified but this is not seem like a Mary's gangrene or other severe process as it seems like he had a perirectal abscess that was drained and adequately furthermore placed on care plan with packing and dressings which have not been completed since. Now it is worsened. Will need to monitor closely. IV antibiotics. IV fluids. Discussed care plan with patient. Unfortunately he failed outpatient management and now requires inpatient care plan. May proceed with a larger incision and drainage if does not improve over the next 24 hours. Will monitor closely. Thank you for let me participate in patient's care worsening OR for exploration I&D s/p I&D dewey in place dressings changed cont abx trend labs will monitor (2) Abscess of buttock, right Assessment & Plan: Findings: There is considerable edema of the skin of the scrotum. This also extends into the penile shaft. There is infiltration of the pubic and suprapubic subcutaneous fat as well. Numerous gas bubbles are seen within the perineum, extending from the scrotum and to the posterior perineum. There is likewise edema of the surrounding skin. No discrete fluid collections are demonstrated. Dense material is seen associated with the air bubbles in the posterior perineum. This may be packing material related to prior incision and drainage as this appears to be deep to a superficial skin defect. A few gas bubbles are seen in the bilateral gluteus cristiano musculature. The bones are unremarkable. The pelvic viscera are unremarkable. Impression: Considerable edema of the scrotal wall, penile shaft, and superficial perineum. Given stated clinical history, likely indicates cellulitis Considerable gas within the perineum and anterior inferior right pubic region. This may be related to prior incision and drainage, but given that it extends well beyond the area of apparent incision extent the possibility of infection with a gas- forming organism should also be considered. Bilateral gluteal gas bubbles. May be related to recent injections, but the possibility of infectious process in this location should also be considered. Jerson Owens Sep 26, 2019 14:03
[2019-09-26 16:00] VITALS: BP 111/73
--- NOTE | 2019-09-26 17:15 | NUR ---
NURSE NOTES: RN LEFT MESSAGE FOR DR WAITE REGARDING POTASSIUM AND SODIUM LEVEL TODAY.
[2019-09-26] MEDS: HYDROcodone/Acetamin 5/325 tab ORAL PRN (17:34)
--- NOTE | 2019-09-26 17:42 | Internal Med Progress Note ---
Subjective Date of Service: Sep 26, 2019 Physician Name JessicaRavi Attending Physician Sheldon Webster MD Current Medications Medications (Trade) Dose Ordered Sig/Jasiel Route PRN Reason Start Time Stop Time Status Last Admin Dose Admin Acetaminophen (Tylenol) 650 mg Q4H PRN ORAL FEVER 09/25/19 13:30 10/25/19 13:29 Acetaminophen/ Hydrocodone Bitart ([place] 10/325) 1 tab Q4H PRN ORAL Severe Pain (Pain Scale 7-10) 09/25/19 13:30 10/02/19 13:29 09/26/19 13:27 Acetaminophen/ Hydrocodone Bitart ([place] 5/325) 1 tab Q4H PRN ORAL Moderate Pain (Pain Scale 4-6) 09/25/19 13:30 10/02/19 13:29 09/26/19 17:34 Al Hydroxide/Mg Hydroxide (Mylanta) 15 ml Q6H PRN ORAL DYSPEPSIA 09/25/19 13:30 10/25/19 13:29 Albuterol/ Ipratropium (Albuterol/ Ipratropium) 3 ml Q4H PRN HHN Shortness of Breath 09/22/19 00:45 09/27/19 00:44 Cefepime HCl 2 gm/ Dextrose 110 ml @ 220 mls/hr EVERY 12 HOURS IV 09/22/19 09:00 09/29/19 08:59 09/26/19 08:29 Dextrose (Dextrose 50%) 25 ml Q30M PRN IV Hypoglycemia 09/22/19 00:45 12/21/19 00:44 Dextrose (Dextrose 50%) 50 ml Q30M PRN IV Hypoglycemia 09/22/19 00:45 12/21/19 00:44 Diphenhydramine HCl (Benadryl) 25 mg Q8H PRN ORAL Itching/Pruritis 09/25/19 13:30 10/25/19 13:29 Docusate Sodium (Colace) 100 mg TWICE A DAY ORAL 09/25/19 18:00 10/25/19 17:59 09/26/19 17:33 Heparin Sodium (Porcine) (Heparin 5000 units/ml) 5,000 units EVERY 12 HOURS SUBQ 09/22/19 09:00 11/06/19 08:59 09/26/19 08:36 Linezolid (Zyvox) 600 mg EVERY 12 HOURS ORAL 09/25/19 10:30 09/30/19 10:29 09/26/19 08:29 Magnesium Hydroxide (Mom) 30 ml BIDPRN PRN ORAL Constipation 09/25/19 13:30 10/25/19 13:29 Metronidazole (Flagyl) 500 mg Q8HR ORAL 09/22/19 14:15 09/29/19 14:14 09/26/19 13:27 Nitroglycerin (Ntg) 0.4 mg Every 5 Minutes PRN SL Prn Chest Pain 09/22/19 00:45 10/22/19 00:44 Ondansetron HCl (Zofran) 4 mg Q6H PRN IVP Nausea & Vomiting 09/25/19 13:30 10/25/19 13:29 Polyethylene Glycol (Miralax) 17 gm DAILYPRN PRN ORAL Constipation 09/25/19 13:45 10/22/19 00:44 Sennosides (Senokot) 8.6 mg BIDPRN PRN ORAL Constipation 09/25/19 13:30 10/25/19 13:29 Temazepam (RestoriL) 7.5 mg DAILYPRN PRN ORAL Insomnia 09/25/19 13:30 10/02/19 13:29 Allergies: Coded Allergies: No Known Allergies (Unverified , 09/21/19) ROS Limited/Unobtainable: No Constitutional: Reports: no symptoms HEENT: Reports: no symptoms Cardiovascular: Reports: no symptoms Respiratory: Reports: no symptoms Gastrointestinal/Abdominal: Reports: no symptoms Genitourinary: Reports: no symptoms Neurologic/Psychiatric: Reports: no symptoms Subjective 39 YO M admitted with right buttock abscess and cellulitis perineum. Cover for Int Med-DR Webster. S/P incision and drainage abscess 09/25/19 Objective Last Vital Signs Date Time Temp Pulse Resp B/P (MAP) Pulse Ox O2 Delivery O2 Flow Rate FiO2 09/26/19 16:00 98.5 82 18 111/73 (86) 99 09/26/19 09:00 Room Air 09/26/19 07:00 21 09/25/19 13:45 3 Laboratory Tests Test 09/26/19 05:00 White Blood Count 19.5 K/UL (4.8-10.8) H Red Blood Count 4.78 M/UL (4.70-6.10) Hemoglobin 15.3 G/DL (14.2-18.0) Hematocrit 44.6 % (42.0-52.0) Mean Corpuscular Volume 93 FL (80-99) Mean Corpuscular Hemoglobin 32.1 PG (27.0-31.0) H Mean Corpuscular Hemoglobin Concent 34.4 G/DL (32.0-36.0) Red Cell Distribution Width 11.6 % (11.6-14.8) Platelet Count 301 K/UL (150-450) Mean Platelet Volume 6.5 FL (6.5-10.1) Neutrophils (%) (Auto) % (45.0-75.0) Lymphocytes (%) (Auto) % (20.0-45.0) Monocytes (%) (Auto) % (1.0-10.0) Eosinophils (%) (Auto) % (0.0-3.0) Basophils (%) (Auto) % (0.0-2.0) Differential Total Cells Counted 100 Neutrophils % (Manual) 79 % (45-75) H Lymphocytes % (Manual) 16 % (20-45) L Monocytes % (Manual) 4 % (1-10) Eosinophils % (Manual) 0 % (0-3) Basophils % (Manual) 0 % (0-2) Band Neutrophils 1 % (0-8) Platelet Estimate Adequate Platelet Morphology Normal Red Blood Cell Morphology Normal Sodium Level 134 MMOL/L (136-145) L Potassium Level 5.4 MMOL/L (3.5-5.1) H Chloride Level 100 MMOL/L (98-107) Carbon Dioxide Level 26 MMOL/L (21-32) Anion Gap 8 mmol/L (5-15) Blood Urea Nitrogen 13 mg/dL (7-18) Creatinine 1.1 MG/DL (0.55-1.30) Estimat Glomerular Filtration Rate > 60 mL/min (>60) Glucose Level 119 MG/DL (74-106) H Calcium Level 8.6 MG/DL (8.5-10.1) Intake and Output 09/25/19 09/26/19 19:00 07:00 Intake Total 900 ml 410 ml Output Total 500 ml Balance 400 ml 410 ml Intake Oral 800 ml 300 ml IV Total 100 ml 110 ml Output Urine Total 500 ml # Voids 4 7 # Bowel Movements 1 Objective PHYSICAL EXAMINATION: GENERAL: The patient is awake and responsive, in no acute distress. HEAD AND NECK EXAMINATION: Pupils are equal and reactive to light. Extraocular movements intact. Neck was supple. No JVD. LUNGS: Clear. No wheezing or rales. HEART: S1, S2. Regular rhythm. No gallops. ABDOMEN: Soft and nontender. Mildly obese. EXTREMITIES: No cyanosis, clubbing, or edema. PELVIC: The patient has right buttock area drainage abscess as well as scrotum was erythema and edematous. 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 The patient moving all extremities. Gait is intact. Assessment/Plan Problem List: (1) Leukocytosis Assessment & Plan: Due to abscess/cellulitis; continue antibiotics per ID (2) Cellulitis, perineum Assessment & Plan: S/P linezolid, flagyl and cefepime; start zosyn per ID=Dr Marrufo (3) Abscess of buttock, right Assessment & Plan: S/P Incision and drainage 09/25/19. See surgery note=Dr Owens (4) Perirectal abscess (5) Abscess, perineum Ravi Lopez MD Sep 26, 2019 17:42
--- NOTE | 2019-09-26 18:16 | Consultation ---
Consult Note Consult Note I was asked to evaluate the patient for hyperkalemia and hyponatremia and fluid management his is a 39-year-old male with no past medical history who presents with chief complaint of right buttock pain. He had pain and swelling in that area for 6-7 days now. He went to the clinic 3 times. Initially they denied in place him on antibiotics. He came back on Wednesday and got a shot of antibiotics and place him on another antibiotics. Came back today and they did another small I&D. Now he is currently taking clindamycin and Bactrim. Because it got worse he came in. He said the redness and swelling extending to the scrotum area. Very painful to walk. Pain is 9 out of 10. Worse with walking. Better with rest. Denies any fever or chills. He said they got small amount of pus with a did an I&D. He denies any other complaint. Never had this problem before. No Known Allergies (Unverified , 09/21/19) COVID-19 Screening Contact w/high risk pt: No Recent Travel to affected area: No Experienced COVID-19 symptoms?: No Assessment/Plan Hyperkalemia Hyponatremia Left buttocks abscess, sepsis, leukocytosis Normal renal functions No urine analysis available 1 dose Kayexalate now: 30 g Plan: Hydrate Monitor electrolytes Urine analysis Avoid nephrotoxic's Random Vanco level tomorrow Per orders Valdez Christian MD Sep 26, 2019 18:16
[2019-09-26] MEDS ORDERED: Sodium Polystyrene Sulfonate 15gm Powder ORAL SCH (18:30)
--- NOTE | 2019-09-26 19:37 | NUR ---
HAND-OFF: Report given to Alysia WHITEHEAD RN.
--- NOTE | 2019-09-26 19:40 | NUR ---
NURSE NOTES: Pt. received from SAGE Goff. Pt. AAOx4, on room air, no SOB, and no complaints of pain. IV right AC 18g intact and patent, saline locked. Dressing on right buttock intact. Bed is low and locked, side rails x2 up, and call light is in reach. Will continue to monitor.
[2019-09-26 20:00] VITALS: BP 117/73
[2019-09-27] VITALS: BP 119/74
[2019-09-27] MEDS: HYDROcodone/Acetamin 10/325 tab ORAL PRN ×2 (01:24→09:14)
--- NOTE | 2019-09-27 01:32 | NUR ---
NURSE NOTES: Pt. reports current pain medication regiment not effective in reducing perineal pain. Pain currently at 8/10, constant, aching and making sleeping difficult. Discussed will follow up with MD in the morning.
[2019-09-27 04:00] VITALS: BP 113/76
[2019-09-27] MEDS: metroNIDAZOLE 500mg tab ORAL SCH ×2 (05:33→13:01)
[2019-09-27 06:25] LABS: BASOPHILS % (AUTO) 1.3 % (0.0-2.0); EOSINOPHILS % (AUTO) 1.5 % (0.0-3.0); HEMATOCRIT 42.5 % (42.0-52.0); HEMOGLOBIN 14.8 G/DL (14.2-18.0); MEAN CORPUSCULAR VOLUME 93 FL (80-99); MONOCYTES % (AUTO) 7.1 % (1.0-10.0); NEUTROPHILS % (AUTO) 70.2 % (45.0-75.0); PLATELET COUNT 344 K/UL (150-450); RED BLOOD COUNT 4.56 M/UL (4.70-6.10); RED CELL DISTRIBUTION WIDTH 11.5 % (11.6-14.8); WHITE BLOOD COUNT 14.5 K/UL (4.8-10.8)
[2019-09-27 06:56] LABS: ALANINE AMINOTRANSFERASE 211 U/L (12-78); ALBUMIN 2.5 G/DL (3.4-5.0); ALBUMIN/GLOBULIN RATIO 0.5 (1.0-2.7); ALKALINE PHOSPHATASE 205 U/L (46-116); ANION GAP 8 mmol/L (5-15); ASPARTATE AMINO TRANSFERASE 88 U/L (15-37); BILIRUBIN,TOTAL 0.5 MG/DL (0.2-1.0); BLOOD UREA NITROGEN 14 mg/dL (7-18); CALCIUM 8.9 MG/DL (8.5-10.1); CARBON DIOXIDE 28 MMOL/L (21-32); CHLORIDE 103 MMOL/L (98-107); CHOLESTEROL 131 MG/DL (< 200); GAMMA GLUTAMYL TRANSPEPTIDASE 203 U/L (5-85); HDL CHOLESTEROL 16 MG/DL (40-60); PHOSPHORUS 3.5 MG/DL (2.5-4.9); POTASSIUM 5.3 MMOL/L (3.5-5.1); SODIUM 139 MMOL/L (136-145); TRIGLYCERIDES 140 MG/DL (30-150)
--- NOTE | 2019-09-27 07:42 | NUR ---
HAND-OFF: Report given to SAGE Olson.
[2019-09-27 08:00] VITALS: BP 116/67
[2019-09-27] MEDS ORDERED: Sodium Polystyrene Sulfonate 15gm Powder ORAL SCH (08:00)
--- NOTE | 2019-09-27 08:01 | Nephrology Progress Note ---
Assessment/Plan Problem List: (1) Abscess of buttock, right (2) Sepsis (3) Hyperkalemia (4) Electrolyte imbalance Assessment: Hyponatremia (5) Elevated liver enzymes Assessment Hyperkalemia Hyponatremia Left buttocks abscess, sepsis, leukocytosis Normal renal functions No urine analysis available Plan Plan: Hydrate Change her diet to medium carb Monitor electrolytes, and liver function tests Urine analysis, still pending results Avoid nephrotoxic's Random Vanco level , noted Kayexalate for high potassium Subjective ROS Limited/Unobtainable: No Objective Objective Last 24 Hour Vital Signs Date Time Temp Pulse Resp B/P (MAP) Pulse Ox O2 Delivery O2 Flow Rate FiO2 09/27/19 04:00 98.2 66 16 113/76 (88) 99 09/27/19 00:00 98.4 79 16 119/74 (89) 96 09/26/19 21:00 Room Air 09/26/19 20:00 97.7 67 19 117/73 (88) 96 09/26/19 16:00 98.5 82 18 111/73 (86) 99 09/26/19 12:00 98.5 84 19 138/80 (99) 97 09/26/19 09:00 Room Air 09/26/19 08:00 98.4 82 20 135/78 (97) 98 Intake and Output 09/26/19 09/27/19 19:00 07:00 Intake Total 110 ml 310 ml Output Total 900 ml 600 ml Balance -790 ml -290 ml Intake Oral 200 ml IV Total 110 ml 110 ml Output Urine Total 900 ml 600 ml # Voids 2 Laboratory Tests 09/27/19 05:10: White Blood Count 14.5H, Red Blood Count 4.56L, Hemoglobin 14.8, Hematocrit 42.5 , Mean Corpuscular Volume 93, Mean Corpuscular Hemoglobin 32.4H, Mean Corpuscular Hemoglobin Concent 34.7, Red Cell Distribution Width 11.5L, Platelet Count 344, Mean Platelet Volume 6.2L, Neutrophils (%) (Auto) 70.2, Lymphocytes (%) (Auto) 20.0, Monocytes (%) (Auto) 7.1, Eosinophils (%) (Auto) 1.5, Basophils (%) (Auto) 1.3, Sodium Level 139, Potassium Level 5.3H, Chloride Level 103, Carbon Dioxide Level 28, Anion Gap 8, Blood Urea Nitrogen 14, Creatinine 1.0, Estimat Glomerular Filtration Rate > 60, Glucose Level 117H, Hemoglobin A1c 6.2H, Uric Acid 4.7, Calcium Level 8.9, Phosphorus Level 3.5, Magnesium Level 2.3, Total Bilirubin 0.5, Gamma Glutamyl Transpeptidase 203H, Aspartate Amino Transf (AST/SGOT) 88H, Alanine Aminotransferase (ALT/SGPT) 211H , Alkaline Phosphatase 205H, C-Reactive Protein, Quantitative 4.1H, Pro-B-Type Natriuretic Peptide 15, Total Protein 7.4, Albumin 2.5L, Globulin 4.9, Albumin/ Globulin Ratio 0.5L, Triglycerides Level 140, Cholesterol Level 131, LDL Cholesterol 78, HDL Cholesterol 16L, Cholesterol/HDL Ratio 8.2H, Thyroid Stimulating Hormone (TSH) 2.026, Random Vancomycin Level < 0.2 Height (Feet): 5 Height (Inches): 2.00 Weight (Pounds): 171 General Appearance: no apparent distress Cardiovascular: normal rate Respiratory/Chest: lungs clear Abdomen: soft Valdez Christian MD Sep 27, 2019 08:01
--- NOTE | 2019-09-27 08:16 | NUR ---
NURSE NOTES: Patient alert x4; on room air, no sing of distress and shortness of breath; IV Right AC 18G TkO; dressing on I/D area bloody; urinal within reach; side rails up x2, breaks engaged, bed at lowest position, call light within reach; will keep monitoring.
[2019-09-27] MEDS ORDERED: Docusate 100mg cap ORAL SCH (09:00)
[2019-09-27] MEDS: Docusate 100mg cap ORAL SCH ×3 (09:13→17:14)
[2019-09-27] MEDS: Cefepime HCl 2 GM in D5W 110 ML IV SCH (09:14)
[2019-09-27] MEDS: Heparin 5000 units/ml inj SUBQ SCH ×2 (09:17→20:43)
--- NOTE | 2019-09-27 10:18 | Diagnostic Imaging Report ---
Indication: Cough Technique: XRAY Chest 1v Comparison: 10/17/2008 Findings: Heart size and mediastinal contours are within normal limits for AP technique. There is no focal airspace consolidation, pneumothorax or pleural effusion. Osseous structures demonstrate no acute abnormality. Impression: No radiographic evidence of acute cardiopulmonary disease.
--- NOTE | 2019-09-27 10:44 | NUR ---
RADIOLOGY DEPT., CHEST X-RAY DONE.-P.DYE
[2019-09-27 10:50] LABS: APPEARANCE,URINE CLEAR; BILIRUBIN, URINE NEGATIVE (NEGATIVE); GLUCOSE, URINE (UA) NEGATIVE (NEGATIVE); KETONES,URINE NEGATIVE (NEGATIVE); LEUKOCYTE ESTERASE ,URINE 1+ (NEGATIVE); NITRITE,URINE NEGATIVE (NEGATIVE); PH,URINE 6 (4.5-8.0); PROTEIN,URINE NEGATIVE (NEGATIVE); UROBILINOGEN,URINE NORMAL MG/DL (0.0-1.0)
[2019-09-27 11:07] LABS: COLOR,URINE YELLOW
--- NOTE | 2019-09-27 11:47 | Surgery Progress Note ---
Surgery Progress Note Subjective Procedure Performed incision and drainage of perirectal / perineal abscess Additional Comments improved wbc improved no n/v/f/c dressings changed wound stable edema improved Objective Last 24 Hour Vital Signs Date Time Temp Pulse Resp B/P (MAP) Pulse Ox O2 Delivery O2 Flow Rate FiO2 09/27/19 09:44 97.0 09/27/19 09:00 Room Air 09/27/19 08:00 97.0 87 19 116/67 (83) 95 09/27/19 04:00 98.2 66 16 113/76 (88) 99 09/27/19 00:00 98.4 79 16 119/74 (89) 96 09/26/19 21:00 Room Air 09/26/19 20:00 97.7 67 19 117/73 (88) 96 09/26/19 16:00 98.5 82 18 111/73 (86) 99 09/26/19 12:00 98.5 84 19 138/80 (99) 97 I&O Intake and Output 09/26/19 09/27/19 19:00 07:00 Intake Total 110 ml 310 ml Output Total 900 ml 600 ml Balance -790 ml -290 ml Intake Oral 200 ml IV Total 110 ml 110 ml Output Urine Total 900 ml 600 ml # Voids 2 Dressing: saturated Wound: clean Drains: dewey Cardiovascular: RSR Respiratory: decreased breath sounds Abdomen: soft, non-tender, present bowel sounds Extremities: no tenderness, no cyanosis Laboratory Tests Test 09/27/19 05:10 09/27/19 10:37 White Blood Count 14.5 K/UL (4.8-10.8) H Red Blood Count 4.56 M/UL (4.70-6.10) L Hemoglobin 14.8 G/DL (14.2-18.0) Hematocrit 42.5 % (42.0-52.0) Mean Corpuscular Volume 93 FL (80-99) Mean Corpuscular Hemoglobin 32.4 PG (27.0-31.0) H Mean Corpuscular Hemoglobin Concent 34.7 G/DL (32.0-36.0) Red Cell Distribution Width 11.5 % (11.6-14.8) L Platelet Count 344 K/UL (150-450) Mean Platelet Volume 6.2 FL (6.5-10.1) L Neutrophils (%) (Auto) 70.2 % (45.0-75.0) Lymphocytes (%) (Auto) 20.0 % (20.0-45.0) Monocytes (%) (Auto) 7.1 % (1.0-10.0) Eosinophils (%) (Auto) 1.5 % (0.0-3.0) Basophils (%) (Auto) 1.3 % (0.0-2.0) Sodium Level 139 MMOL/L (136-145) Potassium Level 5.3 MMOL/L (3.5-5.1) H Chloride Level 103 MMOL/L (98-107) Carbon Dioxide Level 28 MMOL/L (21-32) Anion Gap 8 mmol/L (5-15) Blood Urea Nitrogen 14 mg/dL (7-18) Creatinine 1.0 MG/DL (0.55-1.30) Estimat Glomerular Filtration Rate > 60 mL/min (>60) Glucose Level 117 MG/DL (74-106) H Hemoglobin A1c 6.2 % (4.3-6.0) H Uric Acid 4.7 MG/DL (2.6-7.2) Calcium Level 8.9 MG/DL (8.5-10.1) Phosphorus Level 3.5 MG/DL (2.5-4.9) Magnesium Level 2.3 MG/DL (1.8-2.4) Total Bilirubin 0.5 MG/DL (0.2-1.0) Gamma Glutamyl Transpeptidase 203 U/L (5-85) H Aspartate Amino Transf (AST/SGOT) 88 U/L (15-37) H Alanine Aminotransferase (ALT/SGPT) 211 U/L (12-78) H Alkaline Phosphatase 205 U/L (46-116) H Lactate Dehydrogenase 268 U/L (81-234) H C-Reactive Protein, Quantitative 4.1 mg/dL (0.00-0.90) H Pro-B-Type Natriuretic Peptide 15 pg/mL (0-125) Total Protein 7.4 G/DL (6.4-8.2) Albumin 2.5 G/DL (3.4-5.0) L Globulin 4.9 g/dL Albumin/Globulin Ratio 0.5 (1.0-2.7) L Triglycerides Level 140 MG/DL (30-150) Cholesterol Level 131 MG/DL (< 200) LDL Cholesterol 78 mg/dL (<100) HDL Cholesterol 16 MG/DL (40-60) L Cholesterol/HDL Ratio 8.2 (3.3-4.4) H Thyroid Stimulating Hormone (TSH) 2.026 uiU/mL (0.358-3.740) Random Vancomycin Level < 0.2 ug/mL Urine Color Yellow Urine Appearance Clear Urine pH 6 (4.5-8.0) Urine Specific [place] 1.020 (1.005-1.035) Urine Protein Negative (NEGATIVE) Urine Glucose (UA) Negative (NEGATIVE) Urine Ketones Negative (NEGATIVE) Urine Blood 2+ (NEGATIVE) H Urine Nitrite Negative (NEGATIVE) Urine Bilirubin Negative (NEGATIVE) Urine Urobilinogen Normal MG/DL (0.0-1.0) Urine Leukocyte Esterase 1+ (NEGATIVE) H Urine RBC 2-4 /HPF (0 - 0) H Urine WBC 0-2 /HPF (0 - 0) Urine Squamous Epithelial Cells Occasional /LPF Urine Bacteria Occasional /HPF (NONE) Plan Problems: (1) Sepsis Assessment & Plan: Patient presents with abnormal labs, leukocytosis, scrotal cellulitis perineal cellulitis active infection. On evaluation at bedside patient continues to have packing left from his I&D which was not removed or cared for since incision and drainage. He states is very painful feels are comfortable. Packing dressings were removed by myself. No purulent drainage noted. Some cellulitis and edema around the perineum noted. Likely infectious source is this buttock abscess that is now perineal cellulitis as well. The CT was reviewed and gas identified but this is not seem like a Mary's gangrene or other severe process as it seems like he had a perirectal abscess that was drained and adequately furthermore placed on care plan with packing and dressings which have not been completed since. Now it is worsened. Will need to monitor closely. IV antibiotics. IV fluids. Discussed care plan with patient. Unfortunately he failed outpatient management and now requires inpatient care plan. May proceed with a larger incision and drainage if does not improve over the next 24 hours. Will monitor closely. Thank you for let me participate in patient's care worsening OR for exploration I&D s/p I&D dewey in place dressings changed cont abx trend labs will monitor shower today dressing changes iv abx (2) Abscess of buttock, right Assessment & Plan: Findings: There is considerable edema of the skin of the scrotum. This also extends into the penile shaft. There is infiltration of the pubic and suprapubic subcutaneous fat as well. Numerous gas bubbles are seen within the perineum, extending from the scrotum and to the posterior perineum. There is likewise edema of the surrounding skin. No discrete fluid collections are demonstrated. Dense material is seen associated with the air bubbles in the posterior perineum. This may be packing material related to prior incision and drainage as this appears to be deep to a superficial skin defect. A few gas bubbles are seen in the bilateral gluteus cristiano musculature. The bones are unremarkable. The pelvic viscera are unremarkable. Impression: Considerable edema of the scrotal wall, penile shaft, and superficial perineum. Given stated clinical history, likely indicates cellulitis Considerable gas within the perineum and anterior inferior right pubic region. This may be related to prior incision and drainage, but given that it extends well beyond the area of apparent incision extent the possibility of infection with a gas- forming organism should also be considered. Bilateral gluteal gas bubbles. May be related to recent injections, but the possibility of infectious process in this location should also be considered. Jerson Owens Sep 27, 2019 11:47
[2019-09-27 12:00] VITALS: BP 116/67
--- NOTE | 2019-09-27 12:00 | NUR ---
NURSE NOTES: Urine collected; waiting for results;
--- NOTE | 2019-09-27 12:08 | Internal Med Progress Note ---
Subjective Date of Service: Sep 27, 2019 Physician Name Ravi Lopez Attending Physician Sheldon Webster MD Current Medications Medications (Trade) Dose Ordered Sig/Jasiel Route PRN Reason Start Time Stop Time Status Last Admin Dose Admin Acetaminophen (Tylenol) 650 mg Q4H PRN ORAL FEVER 09/25/19 13:30 10/25/19 13:29 Acetaminophen/ Hydrocodone Bitart ([place] 10/325) 1 tab Q4H PRN ORAL Severe Pain (Pain Scale 7-10) 09/25/19 13:30 10/02/19 13:29 09/27/19 09:14 Acetaminophen/ Hydrocodone Bitart ([place] 5/325) 1 tab Q4H PRN ORAL Moderate Pain (Pain Scale 4-6) 09/25/19 13:30 10/02/19 13:29 09/26/19 17:34 Cefepime HCl 2 gm/ Dextrose 110 ml @ 220 mls/hr EVERY 12 HOURS IV 09/22/19 09:00 09/29/19 08:59 09/27/19 09:14 Docusate Sodium (Colace) 100 mg THREE TIMES A DAY ORAL 09/26/19 18:30 10/27/19 08:59 09/27/19 09:13 Heparin Sodium (Porcine) (Heparin 5000 units/ml) 5,000 units EVERY 12 HOURS SUBQ 09/22/19 09:00 11/06/19 08:59 09/27/19 09:17 Linezolid (Zyvox) 600 mg EVERY 12 HOURS ORAL 09/25/19 10:30 09/30/19 10:29 09/27/19 09:13 Magnesium Hydroxide (Mom) 30 ml BIDPRN PRN ORAL Constipation 09/25/19 13:30 10/25/19 13:29 Metronidazole (Flagyl) 500 mg Q8HR ORAL 09/22/19 14:15 09/29/19 14:14 09/27/19 05:33 Nitroglycerin (Ntg) 0.4 mg Every 5 Minutes PRN SL Prn Chest Pain 09/22/19 00:45 10/22/19 00:44 Ondansetron HCl (Zofran) 4 mg Q6H PRN IVP Nausea & Vomiting 09/25/19 13:30 10/25/19 13:29 Pantoprazole (Protonix) 40 mg EVERY 12 HOURS ORAL 09/26/19 21:00 10/26/19 20:59 09/27/19 09:13 Polyethylene Glycol (Miralax) 17 gm DAILYPRN PRN ORAL Constipation 09/25/19 13:45 10/22/19 00:44 Sennosides (Senokot) 8.6 mg BIDPRN PRN ORAL Constipation 09/25/19 13:30 10/25/19 13:29 Sodium Chloride 1,000 ml @ 100 mls/hr Q10H ONCE IV 09/27/19 08:15 09/27/19 18:14 09/27/19 09:15 Temazepam (RestoriL) 7.5 mg DAILYPRN PRN ORAL Insomnia 09/25/19 13:30 10/02/19 13:29 Allergies: Coded Allergies: No Known Allergies (Unverified , 09/21/19) ROS Limited/Unobtainable: No Constitutional: Reports: no symptoms HEENT: Reports: no symptoms Cardiovascular: Reports: no symptoms Respiratory: Reports: no symptoms Gastrointestinal/Abdominal: Reports: no symptoms Genitourinary: Reports: no symptoms Neurologic/Psychiatric: Reports: no symptoms Subjective 39 YO M admitted with right buttock abscess and cellulitis perineum. Cover for Int Med-DR Webster. S/P incision and drainage abscess 09/25/19 Objective Last Vital Signs Date Time Temp Pulse Resp B/P (MAP) Pulse Ox O2 Delivery O2 Flow Rate FiO2 09/27/19 09:44 97.0 09/27/19 09:00 Room Air 09/27/19 08:00 87 19 116/67 (83) 95 09/26/19 07:00 21 09/25/19 13:45 3 Laboratory Tests Test 09/27/19 05:10 09/27/19 10:37 White Blood Count 14.5 K/UL (4.8-10.8) H Red Blood Count 4.56 M/UL (4.70-6.10) L Hemoglobin 14.8 G/DL (14.2-18.0) Hematocrit 42.5 % (42.0-52.0) Mean Corpuscular Volume 93 FL (80-99) Mean Corpuscular Hemoglobin 32.4 PG (27.0-31.0) H Mean Corpuscular Hemoglobin Concent 34.7 G/DL (32.0-36.0) Red Cell Distribution Width 11.5 % (11.6-14.8) L Platelet Count 344 K/UL (150-450) Mean Platelet Volume 6.2 FL (6.5-10.1) L Neutrophils (%) (Auto) 70.2 % (45.0-75.0) Lymphocytes (%) (Auto) 20.0 % (20.0-45.0) Monocytes (%) (Auto) 7.1 % (1.0-10.0) Eosinophils (%) (Auto) 1.5 % (0.0-3.0) Basophils (%) (Auto) 1.3 % (0.0-2.0) Sodium Level 139 MMOL/L (136-145) Potassium Level 5.3 MMOL/L (3.5-5.1) H Chloride Level 103 MMOL/L (98-107) Carbon Dioxide Level 28 MMOL/L (21-32) Anion Gap 8 mmol/L (5-15) Blood Urea Nitrogen 14 mg/dL (7-18) Creatinine 1.0 MG/DL (0.55-1.30) Estimat Glomerular Filtration Rate > 60 mL/min (>60) Glucose Level 117 MG/DL (74-106) H Hemoglobin A1c 6.2 % (4.3-6.0) H Uric Acid 4.7 MG/DL (2.6-7.2) Calcium Level 8.9 MG/DL (8.5-10.1) Phosphorus Level 3.5 MG/DL (2.5-4.9) Magnesium Level 2.3 MG/DL (1.8-2.4) Total Bilirubin 0.5 MG/DL (0.2-1.0) Gamma Glutamyl Transpeptidase 203 U/L (5-85) H Aspartate Amino Transf (AST/SGOT) 88 U/L (15-37) H Alanine Aminotransferase (ALT/SGPT) 211 U/L (12-78) H Alkaline Phosphatase 205 U/L (46-116) H Lactate Dehydrogenase 268 U/L (81-234) H C-Reactive Protein, Quantitative 4.1 mg/dL (0.00-0.90) H Pro-B-Type Natriuretic Peptide 15 pg/mL (0-125) Total Protein 7.4 G/DL (6.4-8.2) Albumin 2.5 G/DL (3.4-5.0) L Globulin 4.9 g/dL Albumin/Globulin Ratio 0.5 (1.0-2.7) L Triglycerides Level 140 MG/DL (30-150) Cholesterol Level 131 MG/DL (< 200) LDL Cholesterol 78 mg/dL (<100) HDL Cholesterol 16 MG/DL (40-60) L Cholesterol/HDL Ratio 8.2 (3.3-4.4) H Thyroid Stimulating Hormone (TSH) 2.026 uiU/mL (0.358-3.740) Random Vancomycin Level < 0.2 ug/mL Urine Color Yellow Urine Appearance Clear Urine pH 6 (4.5-8.0) Urine Specific [place] 1.020 (1.005-1.035) Urine Protein Negative (NEGATIVE) Urine Glucose (UA) Negative (NEGATIVE) Urine Ketones Negative (NEGATIVE) Urine Blood 2+ (NEGATIVE) H Urine Nitrite Negative (NEGATIVE) Urine Bilirubin Negative (NEGATIVE) Urine Urobilinogen Normal MG/DL (0.0-1.0) Urine Leukocyte Esterase 1+ (NEGATIVE) H Urine RBC 2-4 /HPF (0 - 0) H Urine WBC 0-2 /HPF (0 - 0) Urine Squamous Epithelial Cells Occasional /LPF Urine Bacteria Occasional /HPF (NONE) Microbiology Date/Time Source Procedure Growth Status 09/25/19 14:00 Rectum Gram Stain - Final Resulted 09/25/19 14:00 Rectum Aerobic Culture Pending Resulted Intake and Output 09/26/19 09/27/19 19:00 07:00 Intake Total 110 ml 310 ml Output Total 900 ml 600 ml Balance -790 ml -290 ml Intake Oral 200 ml IV Total 110 ml 110 ml Output Urine Total 900 ml 600 ml # Voids 2 Objective PHYSICAL EXAMINATION: GENERAL: The patient is awake and responsive, in no acute distress. HEAD AND NECK EXAMINATION: Pupils are equal and reactive to light. Extraocular movements intact. Neck was supple. No JVD. LUNGS: Clear. No wheezing or rales. HEART: S1, S2. Regular rhythm. No gallops. ABDOMEN: Soft and nontender. Mildly obese. EXTREMITIES: No cyanosis, clubbing, or edema. PELVIC: The patient has right buttock area drainage abscess as well as scrotum was erythema and edematous. NEUROLOGIC: [employer]ING [employer] DIRECT[employer] II through XII are grossly normal. The patient moving all extremities. Gait is intact. Assessment/Plan Problem List: (1) Leukocytosis Assessment & Plan: Due to abscess/cellulitis; continue antibiotics per ID (2) Cellulitis, perineum Assessment & Plan: S/P linezolid, flagyl and cefepime; start zosyn per ID=Dr Marrufo (3) Abscess of buttock, right Assessment & Plan: S/P Incision and drainage 09/25/19. See surgery note=Dr Owens (4) Perirectal abscess (5) Abscess, perineum Ravi Lopez MD Sep 27, 2019 12:08
--- NOTE | 2019-09-27 12:42 | NUR ---
NURSE NOTES: Per MD Owens order, patient took shower; wound dressing changed, patient tolerated well;
--- NOTE | 2019-09-27 12:56 | Pulmonology Progress Note ---
Assessment/Plan Problems: (1) Sepsis (2) Abscess of buttock, right Assessment/Plan doing better watch K levels, Nephrology appreciated wound care s/p drainage check cultures again abx as per iD Subjective ROS Limited/Unobtainable: No Constitutional: Reports: no symptoms HEENT: Repors: no symptoms Allergies: Coded Allergies: No Known Allergies (Unverified , 09/21/19) Objective Last 24 Hour Vital Signs Date Time Temp Pulse Resp B/P (MAP) Pulse Ox O2 Delivery O2 Flow Rate FiO2 09/27/19 12:00 98.2 87 19 116/67 (83) 97 09/27/19 09:44 97.0 09/27/19 09:00 Room Air 09/27/19 08:00 97.0 87 19 116/67 (83) 95 09/27/19 04:00 98.2 66 16 113/76 (88) 99 09/27/19 00:00 98.4 79 16 119/74 (89) 96 09/26/19 21:00 Room Air 09/26/19 20:00 97.7 67 19 117/73 (88) 96 09/26/19 16:00 98.5 82 18 111/73 (86) 99 Intake and Output 09/26/19 09/27/19 19:00 07:00 Intake Total 110 ml 310 ml Output Total 900 ml 600 ml Balance -790 ml -290 ml Intake Oral 200 ml IV Total 110 ml 110 ml Output Urine Total 900 ml 600 ml # Voids 2 General Appearance: WD/WN HEENT: normocephalic, atraumatic Respiratory/Chest: chest wall non-tender, normal breath sounds Cardiovascular: normal peripheral pulses, normal rate Abdomen: normal bowel sounds, soft, non tender Genitourinary: normal external genitalia Extremities: no clubbing Microbiology Date/Time Source Procedure Growth Status 09/25/19 14:00 Rectum Gram Stain - Final Resulted 09/25/19 14:00 Rectum Aerobic Culture Pending Resulted Laboratory Tests 09/27/19 05:10: White Blood Count 14.5H, Red Blood Count 4.56L, Hemoglobin 14.8, Hematocrit 42.5 , Mean Corpuscular Volume 93, Mean Corpuscular Hemoglobin 32.4H, Mean Corpuscular Hemoglobin Concent 34.7, Red Cell Distribution Width 11.5L, Platelet Count 344, Mean Platelet Volume 6.2L, Neutrophils (%) (Auto) 70.2, Lymphocytes (%) (Auto) 20.0, Monocytes (%) (Auto) 7.1, Eosinophils (%) (Auto) 1.5, Basophils (%) (Auto) 1.3, Sodium Level 139, Potassium Level 5.3H, Chloride Level 103, Carbon Dioxide Level 28, Anion Gap 8, Blood Urea Nitrogen 14, Creatinine 1.0, Estimat Glomerular Filtration Rate > 60, Glucose Level 117H, Hemoglobin A1c 6.2H, Uric Acid 4.7, Calcium Level 8.9, Phosphorus Level 3.5, Magnesium Level 2.3, Total Bilirubin 0.5, Gamma Glutamyl Transpeptidase 203H, Aspartate Amino Transf (AST/SGOT) 88H, Alanine Aminotransferase (ALT/SGPT) 211H , Alkaline Phosphatase 205H, Lactate Dehydrogenase 268H, C-Reactive Protein, Quantitative 4.1H, Pro-B-Type Natriuretic Peptide 15, Total Protein 7.4, Albumin 2.5L, Globulin 4.9, Albumin/Globulin Ratio 0.5L, Triglycerides Level 140 , Cholesterol Level 131, LDL Cholesterol 78, HDL Cholesterol 16L, Cholesterol/ HDL Ratio 8.2H, Thyroid Stimulating Hormone (TSH) 2.026, Random Vancomycin Level < 0.2 09/27/19 10:37: Urine Color Yellow, Urine Appearance Clear, Urine pH 6, Urine Specific [place] 1.020, Urine Protein Negative, Urine Glucose (UA) Negative, Urine Ketones Negative, Urine Blood 2+H, Urine Nitrite Negative, Urine Bilirubin Negative, Urine Urobilinogen Normal, Urine Leukocyte Esterase 1+H, Urine RBC 2-4H, Urine WBC 0-2, Urine Squamous Epithelial Cells Occasional, Urine Bacteria Occasional Current Medications Medications (Trade) Dose Ordered Sig/Jasiel Route PRN Reason Start Time Stop Time Status Last Admin Dose Admin Acetaminophen (Tylenol) 650 mg Q4H PRN ORAL FEVER 09/25/19 13:30 10/25/19 13:29 Acetaminophen/ Hydrocodone Bitart ([place] 10/325) 1 tab Q4H PRN ORAL Severe Pain (Pain Scale 7-10) 09/25/19 13:30 10/02/19 13:29 09/27/19 09:14 Acetaminophen/ Hydrocodone Bitart ([place] 5/325) 1 tab Q4H PRN ORAL Moderate Pain (Pain Scale 4-6) 09/25/19 13:30 10/02/19 13:29 09/26/19 17:34 Cefepime HCl 2 gm/ Dextrose 110 ml @ 220 mls/hr EVERY 12 HOURS IV 09/22/19 09:00 09/29/19 08:59 09/27/19 09:14 Docusate Sodium (Colace) 100 mg THREE TIMES A DAY ORAL 09/26/19 18:30 10/27/19 08:59 09/27/19 09:13 Heparin Sodium (Porcine) (Heparin 5000 units/ml) 5,000 units EVERY 12 HOURS SUBQ 09/22/19 09:00 11/06/19 08:59 09/27/19 09:17 Linezolid (Zyvox) 600 mg EVERY 12 HOURS ORAL 09/25/19 10:30 09/30/19 10:29 09/27/19 09:13 Magnesium Hydroxide (Mom) 30 ml BIDPRN PRN ORAL Constipation 09/25/19 13:30 10/25/19 13:29 Metronidazole (Flagyl) 500 mg Q8HR ORAL 09/22/19 14:15 09/29/19 14:14 09/27/19 05:33 Nitroglycerin (Ntg) 0.4 mg Every 5 Minutes PRN SL Prn Chest Pain 09/22/19 00:45 10/22/19 00:44 Ondansetron HCl (Zofran) 4 mg Q6H PRN IVP Nausea & Vomiting 09/25/19 13:30 10/25/19 13:29 Pantoprazole (Protonix) 40 mg EVERY 12 HOURS ORAL 09/26/19 21:00 10/26/19 20:59 09/27/19 09:13 Polyethylene Glycol (Miralax) 17 gm DAILYPRN PRN ORAL Constipation 09/25/19 13:45 10/22/19 00:44 Sennosides (Senokot) 8.6 mg BIDPRN PRN ORAL Constipation 09/25/19 13:30 10/25/19 13:29 Sodium Chloride 1,000 ml @ 100 mls/hr Q10H ONCE IV 09/27/19 08:15 09/27/19 18:14 09/27/19 09:15 Temazepam (RestoriL) 7.5 mg DAILYPRN PRN ORAL Insomnia 09/25/19 13:30 10/02/19 13:29 Christiano Thomas MD Sep 27, 2019 12:56
--- NOTE | 2019-09-27 14:36 | General Progress Note ---
Assessment/Plan Problem List: (1) Elevated liver enzymes ICD Codes: R74.8 - Abnormal levels of other serum enzymes SNOMED: 205880985 (2) Electrolyte imbalance ICD Codes: E87.8 - Other disorders of electrolyte and fluid balance, not elsewhere classified SNOMED: 672302330 (3) Perirectal abscess ICD Codes: K61.1 - Rectal abscess SNOMED: 04481525 (4) Sepsis ICD Codes: A41.9 - Sepsis, unspecified organism SNOMED: 73131454 Qualifiers: Qualified Codes: A41.9 - Sepsis, unspecified organism (5) Abscess of buttock, right ICD Codes: L02.31 - Cutaneous abscess of buttock SNOMED: 42186626 Assessment/Plan: abd us hepatitis panel change ppi to daily repeat labs Subjective Allergies: Coded Allergies: No Known Allergies (Unverified , 09/21/19) Objective Last 24 Hour Vital Signs Date Time Temp Pulse Resp B/P (MAP) Pulse Ox O2 Delivery O2 Flow Rate FiO2 09/27/19 12:00 98.2 87 19 116/67 (83) 97 09/27/19 09:44 97.0 09/27/19 09:00 Room Air 09/27/19 08:00 97.0 87 19 116/67 (83) 95 09/27/19 04:00 98.2 66 16 113/76 (88) 99 09/27/19 00:00 98.4 79 16 119/74 (89) 96 09/26/19 21:00 Room Air 09/26/19 20:00 97.7 67 19 117/73 (88) 96 09/26/19 16:00 98.5 82 18 111/73 (86) 99 Intake and Output 09/26/19 09/27/19 19:00 07:00 Intake Total 110 ml 310 ml Output Total 900 ml 600 ml Balance -790 ml -290 ml Intake Oral 200 ml IV Total 110 ml 110 ml Output Urine Total 900 ml 600 ml # Voids 2 Laboratory Tests 09/27/19 05:10: White Blood Count 14.5H, Red Blood Count 4.56L, Hemoglobin 14.8, Hematocrit 42.5 , Mean Corpuscular Volume 93, Mean Corpuscular Hemoglobin 32.4H, Mean Corpuscular Hemoglobin Concent 34.7, Red Cell Distribution Width 11.5L, Platelet Count 344, Mean Platelet Volume 6.2L, Neutrophils (%) (Auto) 70.2, Lymphocytes (%) (Auto) 20.0, Monocytes (%) (Auto) 7.1, Eosinophils (%) (Auto) 1.5, Basophils (%) (Auto) 1.3, Sodium Level 139, Potassium Level 5.3H, Chloride Level 103, Carbon Dioxide Level 28, Anion Gap 8, Blood Urea Nitrogen 14, Creatinine 1.0, Estimat Glomerular Filtration Rate > 60, Glucose Level 117H, Hemoglobin A1c 6.2H, Uric Acid 4.7, Calcium Level 8.9, Phosphorus Level 3.5, Magnesium Level 2.3, Total Bilirubin 0.5, Gamma Glutamyl Transpeptidase 203H, Aspartate Amino Transf (AST/SGOT) 88H, Alanine Aminotransferase (ALT/SGPT) 211H , Alkaline Phosphatase 205H, Lactate Dehydrogenase 268H, C-Reactive Protein, Quantitative 4.1H, Pro-B-Type Natriuretic Peptide 15, Total Protein 7.4, Albumin 2.5L, Globulin 4.9, Albumin/Globulin Ratio 0.5L, Triglycerides Level 140 , Cholesterol Level 131, LDL Cholesterol 78, HDL Cholesterol 16L, Cholesterol/ HDL Ratio 8.2H, Thyroid Stimulating Hormone (TSH) 2.026, Random Vancomycin Level < 0.2 09/27/19 10:37: Urine Color Yellow, Urine Appearance Clear, Urine pH 6, Urine Specific [place] 1.020, Urine Protein Negative, Urine Glucose (UA) Negative, Urine Ketones Negative, Urine Blood 2+H, Urine Nitrite Negative, Urine Bilirubin Negative, Urine Urobilinogen Normal, Urine Leukocyte Esterase 1+H, Urine RBC 2-4H, Urine WBC 0-2, Urine Squamous Epithelial Cells Occasional, Urine Bacteria Occasional Height (Feet): 5 Height (Inches): 2.00 Weight (Pounds): 171 General Appearance: alert EENT: normal ENT inspection Neck: supple Cardiovascular: normal rate Respiratory/Chest: lungs clear Abdomen: normal bowel sounds, non tender, soft Gianni Butts MD Sep 27, 2019 14:36
--- NOTE | 2019-09-27 14:40 | NUR ---
CASE MANAGEMENT:REVIEW SI;SEPSIS. PERIRECTAL ABSCESS. RIGHT BUTTOCK ABSCESS/ 98.4 87 19 113/76 95% ON RA WBC 14.5 K+ 5.3 AST 88 ALT 211 ALK PHOS 205 LDH 268 CRP 4.1 ALB 2.5 IS;IVF NS @ 100 ML/HR KAYEXALATE PO ONCE NORCO PO Q4 HRS PRN SENNA PO BID PRN PROTONIX PO QD MED SURG STATUS DCP;PATIENT IS FROM HOME PLAN;ABD US HEP PANEL REPEAT LABS
[2019-09-27 16:00] VITALS: BP 114/65
--- NOTE | 2019-09-27 19:25 | NUR ---
NURSE NOTES: received patient on bed, awake and verbally responsive. On NPO due abd ultrasound complete. per previous nurse" they will do the procedure tonight". reiterated to patient regarding the NPO status. on with iv line on the right ac, tko. bed locked and in lowest position. call light and light button within easy reach. will continue plan of care
--- NOTE | 2019-09-27 19:32 | NUR ---
HAND-OFF: Report given to SAGE Miranda.
[2019-09-27 20:00] VITALS: BP 116/68
--- NOTE | 2019-09-27 20:05 | Diagnostic Imaging Report ---
History: ABD PAIN Exam: US ABDOMEN Comparison: FINDINGS: Pancreas not well seen. Abdominal aortic bifurcation not well seen due to bowel gas otherwise the abdominal aorta appears within limits. The liver measures 16.6 cm and appears within limits. Main portal vein is patent with flow towards the liver. CBD 5 mm. No gallstones, wall thickening or pericholecystic free fluid. Report of a negative sonographic Leon's sign. The right kidney measures 10.7 cm in length. The left kidney measures 10.5 cm in length. No hydronephrosis or evidence of free fluid. Spleen measures 8.8 cm. IMPRESSION: Pancreas not well seen. Abdominal aortic bifurcation not well seen due to bowel gas otherwise the abdominal aorta appears within limits. Study otherwise appears within limits.
[2019-09-27] MEDS: Zoysn 3.37gm in NS 100ML IVPB SCH (20:31)
[2019-09-27] MEDS: HYDROcodone/Acetamin 5/325 tab ORAL PRN (20:32)
[2019-09-28] VITALS: BP 120/70
[2019-09-28 04:00] VITALS: BP 115/65
[2019-09-28] MEDS: Zoysn 3.37gm in NS 100ML IVPB SCH ×3 (04:02→20:44)
[2019-09-28 06:42] LABS: BASOPHILS % (AUTO) 1.1 % (0.0-2.0); EOSINOPHILS % (AUTO) 1.4 % (0.0-3.0); HEMATOCRIT 40.3 % (42.0-52.0); HEMOGLOBIN 13.9 G/DL (14.2-18.0); LYMPHOCYTES % (AUTO) 17.9 % (20.0-45.0); MEAN CORPUSCULAR VOLUME 94 FL (80-99); MONOCYTES % (AUTO) 7.6 % (1.0-10.0); NEUTROPHILS % (AUTO) 72.1 % (45.0-75.0); PLATELET COUNT 356 K/UL (150-450); RED BLOOD COUNT 4.31 M/UL (4.70-6.10); RED CELL DISTRIBUTION WIDTH 11.4 % (11.6-14.8); WHITE BLOOD COUNT 13.1 K/UL (4.8-10.8)
[2019-09-28 07:05] LABS: ALANINE AMINOTRANSFERASE 183 U/L (12-78); ALBUMIN 2.4 G/DL (3.4-5.0); ALBUMIN/GLOBULIN RATIO 0.5 (1.0-2.7); ALKALINE PHOSPHATASE 185 U/L (46-116); ANION GAP 6 mmol/L (5-15); ASPARTATE AMINO TRANSFERASE 75 U/L (15-37); BILIRUBIN,TOTAL 0.5 MG/DL (0.2-1.0); BLOOD UREA NITROGEN 15 mg/dL (7-18); CALCIUM 8.7 MG/DL (8.5-10.1); CARBON DIOXIDE 28 MMOL/L (21-32); CHLORIDE 104 MMOL/L (98-107); GAMMA GLUTAMYL TRANSPEPTIDASE 198 U/L (5-85); PHOSPHORUS 3.7 MG/DL (2.5-4.9); POTASSIUM 4.5 MMOL/L (3.5-5.1); SODIUM 138 MMOL/L (136-145)
--- NOTE | 2019-09-28 07:20 | NUR ---
HAND-OFF: Report given to irma busch. Addendum: 09/28/19 at 0806 by Anjali Miranda RN report given to irma serrano not narayan.
--- NOTE | 2019-09-28 07:49 | NUR ---
NURSE NOTES: Received report from Whit Miranda RN. Patient sitting in semi-Doan's position, awake and alert, on room air, respirations at 15 breaths per minute, breakfast at bedside, side rails up x 2, Sacral/perineal dressing in place, patient asking it to be changed, pain treated with [place], bed in lowest position, call light within reach, in no apparent distress.
[2019-09-28 08:00] VITALS: BP 115/70
[2019-09-28] MEDS: Docusate 100mg cap ORAL SCH ×3 (08:30→17:07)
[2019-09-28] MEDS: HYDROcodone/Acetamin 5/325 tab ORAL PRN ×3 (08:31→16:35)
[2019-09-28] MEDS: Heparin 5000 units/ml inj SUBQ SCH ×2 (08:32→20:45)
--- NOTE | 2019-09-28 08:57 | Nephrology Progress Note ---
Assessment/Plan Problem List: (1) Abscess of buttock, right (2) Sepsis (3) Hyperkalemia (4) Electrolyte imbalance Assessment: Hyponatremia (5) Elevated liver enzymes Assessment: Lowering Assessment Hyperkalemia Hyponatremia Left buttocks abscess, sepsis, leukocytosis Normal renal functions No urine analysis available Plan Plan: Keep hydrated LFTs are declining Change her diet to medium carb Monitor electrolytes, and liver function tests Urine analysis, still pending results Avoid nephrotoxic's Random Vanco level , noted Kayexalate for high potassium as needed Subjective ROS Limited/Unobtainable: No Objective Objective Last 24 Hour Vital Signs Date Time Temp Pulse Resp B/P (MAP) Pulse Ox O2 Delivery O2 Flow Rate FiO2 09/28/19 04:00 98.1 75 18 115/65 (82) 97 09/28/19 00:00 97.9 76 18 120/70 (87) 98 09/27/19 21:02 98.1 09/27/19 21:00 Room Air 09/27/19 20:00 98.1 79 18 116/68 (84) 97 09/27/19 16:00 97.5 77 18 114/65 (81) 97 09/27/19 12:00 98.2 87 19 116/67 (83) 97 09/27/19 09:44 97.0 09/27/19 09:00 Room Air Intake and Output 09/27/19 09/28/19 19:00 07:00 Intake Total 1400 ml 400 ml Output Total 650 ml 500 ml Balance 750 ml -100 ml Intake Oral 480 ml 400 ml IV Total 920 ml Output Urine Total 650 ml 500 ml Laboratory Tests 09/27/19 10:37: Urine Color Yellow, Urine Appearance Clear, Urine pH 6, Urine Specific [place] 1.020, Urine Protein Negative, Urine Glucose (UA) Negative, Urine Ketones Negative, Urine Blood 2+H, Urine Nitrite Negative, Urine Bilirubin Negative, Urine Urobilinogen Normal, Urine Leukocyte Esterase 1+H, Urine RBC 2-4H, Urine WBC 0-2, Urine Squamous Epithelial Cells Occasional, Urine Bacteria Occasional 09/28/19 05:32: White Blood Count 13.1H, Red Blood Count 4.31L, Hemoglobin 13.9L, Hematocrit 40.3L, Mean Corpuscular Volume 94, Mean Corpuscular Hemoglobin 32.2H, Mean Corpuscular Hemoglobin Concent 34.5, Red Cell Distribution Width 11.4L, Platelet Count 356, Mean Platelet Volume 5.7L, Neutrophils (%) (Auto) 72.1, Lymphocytes (%) (Auto) 17.9L, Monocytes (%) (Auto) 7.6, Eosinophils (%) (Auto) 1.4, Basophils (%) (Auto) 1.1, Sodium Level 138, Potassium Level 4.5, Chloride Level 104, Carbon Dioxide Level 28, Anion Gap 6, Blood Urea Nitrogen 15, Creatinine 1.0, Estimat Glomerular Filtration Rate > 60, Glucose Level 101, Calcium Level 8.7, Phosphorus Level 3.7, Magnesium Level 2.3, Total Bilirubin 0.5, Gamma Glutamyl Transpeptidase 198H, Aspartate Amino Transf (AST/SGOT) 75H, Alanine Aminotransferase (ALT/SGPT) 183H, Alkaline Phosphatase 185H, Total Protein 6.8, Albumin 2.4L, Globulin 4.4, Albumin/Globulin Ratio 0.5L, Hepatitis A IgM Antibody [Pending], Hepatitis B Surface Antigen [Pending], Hepatitis B Core IgM Antibody [Pending], Hepatitis C Antibody [Pending] Height (Feet): 5 Height (Inches): 2.00 Weight (Pounds): 171 General Appearance: no apparent distress Objective No change Valdez Christian MD Sep 28, 2019 08:57
--- NOTE | 2019-09-28 10:05 | NUR ---
NURSE NOTES: Wound care performed.
--- NOTE | 2019-09-28 10:18 | General Progress Note ---
Assessment/Plan Problem List: (1) Elevated liver enzymes ICD Codes: R74.8 - Abnormal levels of other serum enzymes SNOMED: 242803337 (2) Electrolyte imbalance ICD Codes: E87.8 - Other disorders of electrolyte and fluid balance, not elsewhere classified SNOMED: 605266350 (3) Perirectal abscess ICD Codes: K61.1 - Rectal abscess SNOMED: 19663088 (4) Sepsis ICD Codes: A41.9 - Sepsis, unspecified organism SNOMED: 08758410 Qualifiers: Qualified Codes: A41.9 - Sepsis, unspecified organism (5) Abscess of buttock, right ICD Codes: L02.31 - Cutaneous abscess of buttock SNOMED: 64925309 Assessment/Plan: abd us>> reviewed hepatitis panel>>> pending ppi daily repeat labs improving LFTS abx per id Subjective Allergies: Coded Allergies: No Known Allergies (Unverified , 09/21/19) Objective Last 24 Hour Vital Signs Date Time Temp Pulse Resp B/P (MAP) Pulse Ox O2 Delivery O2 Flow Rate FiO2 09/28/19 09:00 Room Air 09/28/19 09:00 98.1 09/28/19 08:00 98.3 80 18 115/70 (85) 96 09/28/19 04:00 98.1 75 18 115/65 (82) 97 09/28/19 00:00 97.9 76 18 120/70 (87) 98 09/27/19 21:00 Room Air 09/27/19 20:00 98.1 79 18 116/68 (84) 97 09/27/19 16:00 97.5 77 18 114/65 (81) 97 09/27/19 12:00 98.2 87 19 116/67 (83) 97 Intake and Output 09/27/19 09/28/19 19:00 07:00 Intake Total 1400 ml 400 ml Output Total 650 ml 500 ml Balance 750 ml -100 ml Intake Oral 480 ml 400 ml IV Total 920 ml Output Urine Total 650 ml 500 ml Laboratory Tests 09/27/19 10:37: Urine Color Yellow, Urine Appearance Clear, Urine pH 6, Urine Specific [place] 1.020, Urine Protein Negative, Urine Glucose (UA) Negative, Urine Ketones Negative, Urine Blood 2+H, Urine Nitrite Negative, Urine Bilirubin Negative, Urine Urobilinogen Normal, Urine Leukocyte Esterase 1+H, Urine RBC 2-4H, Urine WBC 0-2, Urine Squamous Epithelial Cells Occasional, Urine Bacteria Occasional 09/28/19 05:32: White Blood Count 13.1H, Red Blood Count 4.31L, Hemoglobin 13.9L, Hematocrit 40.3L, Mean Corpuscular Volume 94, Mean Corpuscular Hemoglobin 32.2H, Mean Corpuscular Hemoglobin Concent 34.5, Red Cell Distribution Width 11.4L, Platelet Count 356, Mean Platelet Volume 5.7L, Neutrophils (%) (Auto) 72.1, Lymphocytes (%) (Auto) 17.9L, Monocytes (%) (Auto) 7.6, Eosinophils (%) (Auto) 1.4, Basophils (%) (Auto) 1.1, Sodium Level 138, Potassium Level 4.5, Chloride Level 104, Carbon Dioxide Level 28, Anion Gap 6, Blood Urea Nitrogen 15, Creatinine 1.0, Estimat Glomerular Filtration Rate > 60, Glucose Level 101, Calcium Level 8.7, Phosphorus Level 3.7, Magnesium Level 2.3, Total Bilirubin 0.5, Gamma Glutamyl Transpeptidase 198H, Aspartate Amino Transf (AST/SGOT) 75H, Alanine Aminotransferase (ALT/SGPT) 183H, Alkaline Phosphatase 185H, Total Protein 6.8, Albumin 2.4L, Globulin 4.4, Albumin/Globulin Ratio 0.5L, Hepatitis A IgM Antibody [Pending], Hepatitis B Surface Antigen [Pending], Hepatitis B Core IgM Antibody [Pending], Hepatitis C Antibody [Pending] Height (Feet): 5 Height (Inches): 2.00 Weight (Pounds): 171 General Appearance: no apparent distress EENT: normal ENT inspection Neck: supple Cardiovascular: normal rate Respiratory/Chest: decreased breath sounds Abdomen: normal bowel sounds, non tender, soft Extremities: non-tender Gianni Butts MD Sep 28, 2019 10:18
[2019-09-28 12:00] VITALS: BP 99/66
--- NOTE | 2019-09-28 12:45 | NUR ---
CASE MANAGEMENT:REVIEW SI;SEPSIS. PERIRECTAL ABSCESS. RIGHT BUTTOCK ABSCESS. 98.3 80 18 120/70 96% ON RA WBC 13.1 GGT 198 AST 75 ALT 183 ALK PHOS 185 ALB 2.4 IS;ZOSYN IV Q8 HRS COLACE PO TID PROTONIX PO QD NORCO PO Q4 HRS PRN MED SURG STATUS DCP;PATIENT IS FROM HOME PLAN;CONTINUE ABX GERALDINE DRAIN IN PLACE X2
--- NOTE | 2019-09-28 12:52 | Pulmonology Progress Note ---
Assessment/Plan Problems: (1) Sepsis (2) Abscess of buttock, right Assessment/Plan wbc lower doing better wound care s/p drainage check cultures again abx as per iD Subjective ROS Limited/Unobtainable: Yes Constitutional: Reports: no symptoms HEENT: Repors: no symptoms Allergies: Coded Allergies: No Known Allergies (Unverified , 09/21/19) Objective Last 24 Hour Vital Signs Date Time Temp Pulse Resp B/P (MAP) Pulse Ox O2 Delivery O2 Flow Rate FiO2 09/28/19 09:00 Room Air 09/28/19 09:00 98.1 09/28/19 08:00 98.3 80 18 115/70 (85) 96 09/28/19 04:00 98.1 75 18 115/65 (82) 97 09/28/19 00:00 97.9 76 18 120/70 (87) 98 09/27/19 21:00 Room Air 09/27/19 20:00 98.1 79 18 116/68 (84) 97 09/27/19 16:00 97.5 77 18 114/65 (81) 97 Intake and Output 09/27/19 09/28/19 19:00 07:00 Intake Total 1400 ml 400 ml Output Total 650 ml 500 ml Balance 750 ml -100 ml Intake Oral 480 ml 400 ml IV Total 920 ml Output Urine Total 650 ml 500 ml General Appearance: WD/WN HEENT: normocephalic, atraumatic Respiratory/Chest: chest wall non-tender, lungs clear Cardiovascular: normal peripheral pulses, normal rate Abdomen: normal bowel sounds, soft, non tender Genitourinary: normal external genitalia Extremities: no cyanosis Skin: no rash Neurologic/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: 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 normal Lymphatic: no neck adenopathy Microbiology Date/Time Source Procedure Growth Status 09/25/19 14:00 Rectum Gram Stain - Final Resulted 09/25/19 14:00 Aerobic Culture - Preliminary Staphylococcus Sp Coag Neg Resulted Laboratory Tests 09/28/19 05:32: White Blood Count 13.1H, Red Blood Count 4.31L, Hemoglobin 13.9L, Hematocrit 40.3L, Mean Corpuscular Volume 94, Mean Corpuscular Hemoglobin 32.2H, Mean Corpuscular Hemoglobin Concent 34.5, Red Cell Distribution Width 11.4L, Platelet Count 356, Mean Platelet Volume 5.7L, Neutrophils (%) (Auto) 72.1, Lymphocytes (%) (Auto) 17.9L, Monocytes (%) (Auto) 7.6, Eosinophils (%) (Auto) 1.4, Basophils (%) (Auto) 1.1, Sodium Level 138, Potassium Level 4.5, Chloride Level 104, Carbon Dioxide Level 28, Anion Gap 6, Blood Urea Nitrogen 15, Creatinine 1.0, Estimat Glomerular Filtration Rate > 60, Glucose Level 101, Calcium Level 8.7, Phosphorus Level 3.7, Magnesium Level 2.3, Total Bilirubin 0.5, Gamma Glutamyl Transpeptidase 198H, Aspartate Amino Transf (AST/SGOT) 75H, Alanine Aminotransferase (ALT/SGPT) 183H, Alkaline Phosphatase 185H, Total Protein 6.8, Albumin 2.4L, Globulin 4.4, Albumin/Globulin Ratio 0.5L, Hepatitis A IgM Antibody [Pending], Hepatitis B Surface Antigen [Pending], Hepatitis B Core IgM Antibody [Pending], Hepatitis C Antibody [Pending] Current Medications Medications (Trade) Dose Ordered Sig/Jasiel Route PRN Reason Start Time Stop Time Status Last Admin Dose Admin Acetaminophen (Tylenol) 650 mg Q4H PRN ORAL FEVER 09/25/19 13:30 10/25/19 13:29 Acetaminophen/ Hydrocodone Bitart ([place] 10/325) 1 tab Q4H PRN ORAL Severe Pain (Pain Scale 7-10) 09/25/19 13:30 10/02/19 13:29 09/27/19 09:14 Acetaminophen/ Hydrocodone Bitart ([place] 5/325) 1 tab Q4H PRN ORAL Moderate Pain (Pain Scale 4-6) 09/25/19 13:30 10/02/19 13:29 09/28/19 12:30 Docusate Sodium (Colace) 100 mg THREE TIMES A DAY ORAL 09/26/19 18:30 10/27/19 08:59 09/28/19 08:30 Heparin Sodium (Porcine) (Heparin 5000 units/ml) 5,000 units EVERY 12 HOURS SUBQ 09/22/19 09:00 11/06/19 08:59 09/28/19 08:32 Magnesium Hydroxide (Mom) 30 ml BIDPRN PRN ORAL Constipation 09/25/19 13:30 10/25/19 13:29 Nitroglycerin (Ntg) 0.4 mg Every 5 Minutes PRN SL Prn Chest Pain 09/22/19 00:45 10/22/19 00:44 Ondansetron HCl (Zofran) 4 mg Q6H PRN IVP Nausea & Vomiting 09/25/19 13:30 10/25/19 13:29 Pantoprazole (Protonix) 40 mg DAILY ORAL 09/28/19 09:00 10/26/19 20:59 09/28/19 08:31 Piperacillin Sod/ Tazobactam Sod 3.375 gm/Sodium Chloride 110 ml @ 27.5 mls/hr Q8H IVPB 09/27/19 20:00 10/04/19 19:59 09/28/19 12:17 Polyethylene Glycol (Miralax) 17 gm DAILYPRN PRN ORAL Constipation 09/25/19 13:45 10/22/19 00:44 Sennosides (Senokot) 8.6 mg BIDPRN PRN ORAL Constipation 09/25/19 13:30 10/25/19 13:29 Temazepam (RestoriL) 7.5 mg DAILYPRN PRN ORAL Insomnia 09/25/19 13:30 10/02/19 13:29 Christiano Thomas MD Sep 28, 2019 12:52
--- NOTE | 2019-09-28 14:11 | Infectious Diseases Prog Note ---
Assessment/Plan Assessment/Plan Afebrile Leukocytosis; improving -CT chest: There is mild left basilar atelectasis. No consolidating infiltrates are identified. Sepsis Buttock abscess-r/o necrotizing infection -09/24 SP I+D --cx CONS (preliminary) -s/p I+D (outpt clinic [facility]) -wound cx CONS, E. faecium (S amp, vanco), E. avium (S amp, vanco) -CT abd/p: Considerable edema of the scrotal wall, penile shaft, and superficial perineum. Given stated clinical history, likely indicates cellulitis. Considerable gas within the perineum and anterior inferior right pubic region. This may be related to prior incision and drainage, but given that it extends well beyond the area of apparent incision extent the possibility of infection with a gas-forming organism should also be considered. Bilateral gluteal gas bubbles. May be related to recent injections, but the possibility of infectious process in this location should also be considered. Abd US: Pancreas not well seen. Abdominal aortic bifurcation not well seen due to bowel gas otherwise the abdominal aorta appears within limits. Study otherwise appears within limits. Plan: -Continue Zosyn #1 (abx d #/) -upon discharge, can be transitioned to PO Augmentin 875/125mg po bid to complete course -09/26 SP Cefepime and Flagyl #5, Linezolid #3 -09/24 SP IV Vancomycin #3 monitor temp and cbc f/u wound cx f/u BCx Sx f/u DW RN Subjective Allergies: Coded Allergies: No Known Allergies (Unverified , 09/21/19) Subjective afebrile wbc improving Objective Vital Signs Last 24 Hour Vital Signs Date Time Temp Pulse Resp B/P (MAP) Pulse Ox O2 Delivery O2 Flow Rate FiO2 09/28/19 12:00 98.5 65 20 99/66 (77) 97 09/28/19 09:00 Room Air 09/28/19 09:00 98.1 09/28/19 08:00 98.3 80 18 115/70 (85) 96 09/28/19 04:00 98.1 75 18 115/65 (82) 97 09/28/19 00:00 97.9 76 18 120/70 (87) 98 09/27/19 21:00 Room Air 09/27/19 20:00 98.1 79 18 116/68 (84) 97 09/27/19 16:00 97.5 77 18 114/65 (81) 97 Height (Feet): 5 Height (Inches): 2.00 Weight (Pounds): 171 Objective Gen: NAd. well nourished. well hydrated HEENT: anicteric sclera CV: RRR. S1+S2. no rubs or gallop Resp: RRR. CTAB. no wheezes or crackles. Abd: soft. no TTP. nondistended Buttock: R buttock erythema, induration, swelling, tenderness--improving. Laboratory Tests Test 09/28/19 05:32 White Blood Count 13.1 K/UL (4.8-10.8) H Red Blood Count 4.31 M/UL (4.70-6.10) L Hemoglobin 13.9 G/DL (14.2-18.0) L Hematocrit 40.3 % (42.0-52.0) L Mean Corpuscular Volume 94 FL (80-99) Mean Corpuscular Hemoglobin 32.2 PG (27.0-31.0) H Mean Corpuscular Hemoglobin Concent 34.5 G/DL (32.0-36.0) Red Cell Distribution Width 11.4 % (11.6-14.8) L Platelet Count 356 K/UL (150-450) Mean Platelet Volume 5.7 FL (6.5-10.1) L Neutrophils (%) (Auto) 72.1 % (45.0-75.0) Lymphocytes (%) (Auto) 17.9 % (20.0-45.0) L Monocytes (%) (Auto) 7.6 % (1.0-10.0) Eosinophils (%) (Auto) 1.4 % (0.0-3.0) Basophils (%) (Auto) 1.1 % (0.0-2.0) Sodium Level 138 MMOL/L (136-145) Potassium Level 4.5 MMOL/L (3.5-5.1) Chloride Level 104 MMOL/L (98-107) Carbon Dioxide Level 28 MMOL/L (21-32) Anion Gap 6 mmol/L (5-15) Blood Urea Nitrogen 15 mg/dL (7-18) Creatinine 1.0 MG/DL (0.55-1.30) Estimat Glomerular Filtration Rate > 60 mL/min (>60) Glucose Level 101 MG/DL (74-106) Calcium Level 8.7 MG/DL (8.5-10.1) Phosphorus Level 3.7 MG/DL (2.5-4.9) Magnesium Level 2.3 MG/DL (1.8-2.4) Total Bilirubin 0.5 MG/DL (0.2-1.0) Gamma Glutamyl Transpeptidase 198 U/L (5-85) H Aspartate Amino Transf (AST/SGOT) 75 U/L (15-37) H Alanine Aminotransferase (ALT/SGPT) 183 U/L (12-78) H Alkaline Phosphatase 185 U/L (46-116) H Total Protein 6.8 G/DL (6.4-8.2) Albumin 2.4 G/DL (3.4-5.0) L Globulin 4.4 g/dL Albumin/Globulin Ratio 0.5 (1.0-2.7) L Hepatitis A IgM Antibody Pending Hepatitis B Surface Antigen Pending Hepatitis B Core IgM Antibody Pending Hepatitis C Antibody Pending Current Medications Medications (Trade) Dose Ordered Sig/Jasiel Route PRN Reason Start Time Stop Time Status Last Admin Dose Admin Acetaminophen (Tylenol) 650 mg Q4H PRN ORAL FEVER 09/25/19 13:30 10/25/19 13:29 Acetaminophen/ Hydrocodone Bitart ([place] 10/325) 1 tab Q4H PRN ORAL Severe Pain (Pain Scale 7-10) 09/25/19 13:30 10/02/19 13:29 09/27/19 09:14 Acetaminophen/ Hydrocodone Bitart ([place] 5/325) 1 tab Q4H PRN ORAL Moderate Pain (Pain Scale 4-6) 09/25/19 13:30 10/02/19 13:29 09/28/19 12:30 Docusate Sodium (Colace) 100 mg THREE TIMES A DAY ORAL 09/26/19 18:30 10/27/19 08:59 09/28/19 08:30 Heparin Sodium (Porcine) (Heparin 5000 units/ml) 5,000 units EVERY 12 HOURS SUBQ 09/22/19 09:00 11/06/19 08:59 09/28/19 08:32 Magnesium Hydroxide (Mom) 30 ml BIDPRN PRN ORAL Constipation 09/25/19 13:30 10/25/19 13:29 Nitroglycerin (Ntg) 0.4 mg Every 5 Minutes PRN SL Prn Chest Pain 09/22/19 00:45 10/22/19 00:44 Ondansetron HCl (Zofran) 4 mg Q6H PRN IVP Nausea & Vomiting 09/25/19 13:30 10/25/19 13:29 Pantoprazole (Protonix) 40 mg DAILY ORAL 09/28/19 09:00 10/26/19 20:59 09/28/19 08:31 Piperacillin Sod/ Tazobactam Sod 3.375 gm/Sodium Chloride 110 ml @ 27.5 mls/hr Q8H IVPB 09/27/19 20:00 10/04/19 19:59 09/28/19 12:17 Polyethylene Glycol (Miralax) 17 gm DAILYPRN PRN ORAL Constipation 09/25/19 13:45 10/22/19 00:44 Sennosides (Senokot) 8.6 mg BIDPRN PRN ORAL Constipation 09/25/19 13:30 10/25/19 13:29 Temazepam (RestoriL) 7.5 mg DAILYPRN PRN ORAL Insomnia 09/25/19 13:30 10/02/19 13:29 Vandana Marrufo M.D. Sep 28, 2019 14:11
--- NOTE | 2019-09-28 14:35 | Surgery Progress Note ---
Surgery Progress Note Subjective Procedure Performed incision and drainage of perirectal / perineal abscess Symptoms: improved Objective Last 24 Hour Vital Signs Date Time Temp Pulse Resp B/P (MAP) Pulse Ox O2 Delivery O2 Flow Rate FiO2 09/28/19 13:00 98.1 09/28/19 12:00 98.5 65 20 99/66 (77) 97 09/28/19 09:00 Room Air 09/28/19 08:00 98.3 80 18 115/70 (85) 96 09/28/19 04:00 98.1 75 18 115/65 (82) 97 09/28/19 00:00 97.9 76 18 120/70 (87) 98 09/27/19 21:00 Room Air 09/27/19 20:00 98.1 79 18 116/68 (84) 97 09/27/19 16:00 97.5 77 18 114/65 (81) 97 I&O Intake and Output 09/27/19 09/28/19 19:00 07:00 Intake Total 1400 ml 400 ml Output Total 650 ml 500 ml Balance 750 ml -100 ml Intake Oral 480 ml 400 ml IV Total 920 ml Output Urine Total 650 ml 500 ml Dressing: saturated Wound: other Cardiovascular: RSR Respiratory: clear Abdomen: soft, flat, non-tender Extremities: no edema, no tenderness, no cyanosis Laboratory Tests Test 09/28/19 05:32 White Blood Count 13.1 K/UL (4.8-10.8) H Red Blood Count 4.31 M/UL (4.70-6.10) L Hemoglobin 13.9 G/DL (14.2-18.0) L Hematocrit 40.3 % (42.0-52.0) L Mean Corpuscular Volume 94 FL (80-99) Mean Corpuscular Hemoglobin 32.2 PG (27.0-31.0) H Mean Corpuscular Hemoglobin Concent 34.5 G/DL (32.0-36.0) Red Cell Distribution Width 11.4 % (11.6-14.8) L Platelet Count 356 K/UL (150-450) Mean Platelet Volume 5.7 FL (6.5-10.1) L Neutrophils (%) (Auto) 72.1 % (45.0-75.0) Lymphocytes (%) (Auto) 17.9 % (20.0-45.0) L Monocytes (%) (Auto) 7.6 % (1.0-10.0) Eosinophils (%) (Auto) 1.4 % (0.0-3.0) Basophils (%) (Auto) 1.1 % (0.0-2.0) Sodium Level 138 MMOL/L (136-145) Potassium Level 4.5 MMOL/L (3.5-5.1) Chloride Level 104 MMOL/L (98-107) Carbon Dioxide Level 28 MMOL/L (21-32) Anion Gap 6 mmol/L (5-15) Blood Urea Nitrogen 15 mg/dL (7-18) Creatinine 1.0 MG/DL (0.55-1.30) Estimat Glomerular Filtration Rate > 60 mL/min (>60) Glucose Level 101 MG/DL (74-106) Calcium Level 8.7 MG/DL (8.5-10.1) Phosphorus Level 3.7 MG/DL (2.5-4.9) Magnesium Level 2.3 MG/DL (1.8-2.4) Total Bilirubin 0.5 MG/DL (0.2-1.0) Gamma Glutamyl Transpeptidase 198 U/L (5-85) H Aspartate Amino Transf (AST/SGOT) 75 U/L (15-37) H Alanine Aminotransferase (ALT/SGPT) 183 U/L (12-78) H Alkaline Phosphatase 185 U/L (46-116) H Total Protein 6.8 G/DL (6.4-8.2) Albumin 2.4 G/DL (3.4-5.0) L Globulin 4.4 g/dL Albumin/Globulin Ratio 0.5 (1.0-2.7) L Hepatitis A IgM Antibody Pending Hepatitis B Surface Antigen Pending Hepatitis B Core IgM Antibody Pending Hepatitis C Antibody Pending Plan Problems: (1) Sepsis Assessment & Plan: Patient presents with abnormal labs, leukocytosis, scrotal cellulitis perineal cellulitis active infection. On evaluation at bedside patient continues to have packing left from his I&D which was not removed or cared for since incision and drainage. He states is very painful feels are comfortable. Packing dressings were removed by myself. No purulent drainage noted. Some cellulitis and edema around the perineum noted. Likely infectious source is this buttock abscess that is now perineal cellulitis as well. The CT was reviewed and gas identified but this is not seem like a Mary's gangrene or other severe process as it seems like he had a perirectal abscess that was drained and adequately furthermore placed on care plan with packing and dressings which have not been completed since. Now it is worsened. Will need to monitor closely. IV antibiotics. IV fluids. Discussed care plan with patient. Unfortunately he failed outpatient management and now requires inpatient care plan. May proceed with a larger incision and drainage if does not improve over the next 24 hours. Will monitor closely. Thank you for let me participate in patient's care worsening OR for exploration I&D s/p I&D dewey in place dressings changed cont abx trend labs will monitor shower today dressing changes iv abx (2) Abscess of buttock, right Assessment & Plan: Findings: There is considerable edema of the skin of the scrotum. This also extends into the penile shaft. There is infiltration of the pubic and suprapubic subcutaneous fat as well. Numerous gas bubbles are seen within the perineum, extending from the scrotum and to the posterior perineum. There is likewise edema of the surrounding skin. No discrete fluid collections are demonstrated. Dense material is seen associated with the air bubbles in the posterior perineum. This may be packing material related to prior incision and drainage as this appears to be deep to a superficial skin defect. A few gas bubbles are seen in the bilateral gluteus cristiano musculature. The bones are unremarkable. The pelvic viscera are unremarkable. Impression: Considerable edema of the scrotal wall, penile shaft, and superficial perineum. Given stated clinical history, likely indicates cellulitis Considerable gas within the perineum and anterior inferior right pubic region. This may be related to prior incision and drainage, but given that it extends well beyond the area of apparent incision extent the possibility of infection with a gas- forming organism should also be considered. Bilateral gluteal gas bubbles. May be related to recent injections, but the possibility of infectious process in this location should also be considered. Jerson Owens Sep 28, 2019 14:35
[2019-09-28 16:00] VITALS: BP 109/71
--- NOTE | 2019-09-28 17:15 | Internal Med Progress Note ---
Subjective Date of Service: Sep 28, 2019 Physician Name JessicaRavi Attending Physician Sheldon Webster MD Current Medications Medications (Trade) Dose Ordered Sig/Jasiel Route PRN Reason Start Time Stop Time Status Last Admin Dose Admin Acetaminophen (Tylenol) 650 mg Q4H PRN ORAL FEVER 09/25/19 13:30 10/25/19 13:29 Acetaminophen/ Hydrocodone Bitart ([place] 10/325) 1 tab Q4H PRN ORAL Severe Pain (Pain Scale 7-10) 09/25/19 13:30 10/02/19 13:29 09/27/19 09:14 Acetaminophen/ Hydrocodone Bitart ([place] 5/325) 1 tab Q4H PRN ORAL Moderate Pain (Pain Scale 4-6) 09/25/19 13:30 10/02/19 13:29 09/28/19 16:35 Docusate Sodium (Colace) 100 mg THREE TIMES A DAY ORAL 09/26/19 18:30 10/27/19 08:59 09/28/19 17:07 Heparin Sodium (Porcine) (Heparin 5000 units/ml) 5,000 units EVERY 12 HOURS SUBQ 09/22/19 09:00 11/06/19 08:59 09/28/19 08:32 Magnesium Hydroxide (Mom) 30 ml BIDPRN PRN ORAL Constipation 09/25/19 13:30 10/25/19 13:29 Nitroglycerin (Ntg) 0.4 mg Every 5 Minutes PRN SL Prn Chest Pain 09/22/19 00:45 10/22/19 00:44 Ondansetron HCl (Zofran) 4 mg Q6H PRN IVP Nausea & Vomiting 09/25/19 13:30 10/25/19 13:29 Pantoprazole (Protonix) 40 mg DAILY ORAL 09/28/19 09:00 10/26/19 20:59 09/28/19 08:31 Piperacillin Sod/ Tazobactam Sod 3.375 gm/Sodium Chloride 110 ml @ 27.5 mls/hr Q8H IVPB 09/27/19 20:00 10/04/19 19:59 09/28/19 12:17 Polyethylene Glycol (Miralax) 17 gm DAILYPRN PRN ORAL Constipation 09/25/19 13:45 10/22/19 00:44 Sennosides (Senokot) 8.6 mg BIDPRN PRN ORAL Constipation 09/25/19 13:30 10/25/19 13:29 Temazepam (RestoriL) 7.5 mg DAILYPRN PRN ORAL Insomnia 09/25/19 13:30 10/02/19 13:29 Allergies: Coded Allergies: No Known Allergies (Unverified , 09/21/19) ROS Limited/Unobtainable: No Constitutional: Reports: no symptoms HEENT: Reports: no symptoms Cardiovascular: Reports: no symptoms Respiratory: Reports: no symptoms Gastrointestinal/Abdominal: Reports: no symptoms Genitourinary: Reports: no symptoms Neurologic/Psychiatric: Reports: no symptoms Subjective 39 YO M admitted with right buttock abscess and cellulitis perineum. Cover for Int Med-DR Webster. S/P incision and drainage abscess 09/25/19 Objective Last Vital Signs Date Time Temp Pulse Resp B/P (MAP) Pulse Ox O2 Delivery O2 Flow Rate FiO2 09/28/19 17:05 98.1 09/28/19 16:00 66 18 109/71 (84) 98 09/28/19 09:00 Room Air 09/26/19 07:00 21 09/25/19 13:45 3 Laboratory Tests Test 09/28/19 05:32 White Blood Count 13.1 K/UL (4.8-10.8) H Red Blood Count 4.31 M/UL (4.70-6.10) L Hemoglobin 13.9 G/DL (14.2-18.0) L Hematocrit 40.3 % (42.0-52.0) L Mean Corpuscular Volume 94 FL (80-99) Mean Corpuscular Hemoglobin 32.2 PG (27.0-31.0) H Mean Corpuscular Hemoglobin Concent 34.5 G/DL (32.0-36.0) Red Cell Distribution Width 11.4 % (11.6-14.8) L Platelet Count 356 K/UL (150-450) Mean Platelet Volume 5.7 FL (6.5-10.1) L Neutrophils (%) (Auto) 72.1 % (45.0-75.0) Lymphocytes (%) (Auto) 17.9 % (20.0-45.0) L Monocytes (%) (Auto) 7.6 % (1.0-10.0) Eosinophils (%) (Auto) 1.4 % (0.0-3.0) Basophils (%) (Auto) 1.1 % (0.0-2.0) Sodium Level 138 MMOL/L (136-145) Potassium Level 4.5 MMOL/L (3.5-5.1) Chloride Level 104 MMOL/L (98-107) Carbon Dioxide Level 28 MMOL/L (21-32) Anion Gap 6 mmol/L (5-15) Blood Urea Nitrogen 15 mg/dL (7-18) Creatinine 1.0 MG/DL (0.55-1.30) Estimat Glomerular Filtration Rate > 60 mL/min (>60) Glucose Level 101 MG/DL (74-106) Calcium Level 8.7 MG/DL (8.5-10.1) Phosphorus Level 3.7 MG/DL (2.5-4.9) Magnesium Level 2.3 MG/DL (1.8-2.4) Total Bilirubin 0.5 MG/DL (0.2-1.0) Gamma Glutamyl Transpeptidase 198 U/L (5-85) H Aspartate Amino Transf (AST/SGOT) 75 U/L (15-37) H Alanine Aminotransferase (ALT/SGPT) 183 U/L (12-78) H Alkaline Phosphatase 185 U/L (46-116) H Total Protein 6.8 G/DL (6.4-8.2) Albumin 2.4 G/DL (3.4-5.0) L Globulin 4.4 g/dL Albumin/Globulin Ratio 0.5 (1.0-2.7) L Hepatitis A IgM Antibody Pending Hepatitis B Surface Antigen Pending Hepatitis B Core IgM Antibody Pending Hepatitis C Antibody Pending Intake and Output 09/27/19 09/28/19 19:00 07:00 Intake Total 1400 ml 400 ml Output Total 650 ml 500 ml Balance 750 ml -100 ml Intake Oral 480 ml 400 ml IV Total 920 ml Output Urine Total 650 ml 500 ml Objective PHYSICAL EXAMINATION: GENERAL: The patient is awake and responsive, in no acute distress. HEAD AND NECK EXAMINATION: Pupils are equal and reactive to light. Extraocular movements intact. Neck was supple. No JVD. LUNGS: Clear. No wheezing or rales. HEART: S1, S2. Regular rhythm. No gallops. ABDOMEN: Soft and nontender. Mildly obese. EXTREMITIES: No cyanosis, clubbing, or edema. PELVIC: The patient has right buttock area drainage abscess as well as scrotum was erythema and edematous. NEUROLOGIC: SKIN DIVING TEACHER II through XII are grossly normal. The patient moving all extremities. Gait is intact. Assessment/Plan Problem List: (1) Leukocytosis Assessment & Plan: Due to abscess/cellulitis; continue antibiotics per ID (2) Cellulitis, perineum Assessment & Plan: S/P linezolid, flagyl and cefepime; start zosyn per ID=Dr Marrufo. May discharge on oral augmentin for 14 days total (3) Abscess of buttock, right Assessment & Plan: S/P Incision and drainage 09/25/19. See surgery note=Dr Owens (4) Perirectal abscess (5) Abscess, perineum (6) Elevated liver enzymes Assessment & Plan: Improving. Abdominal ultrasound=essentially normal. GI=Ravi Carter MD Sep 28, 2019 17:15
--- NOTE | 2019-09-28 19:20 | NUR ---
NURSE NOTES: Received patient on bed, awake and verbally responsive. respirations even and unlabored. no sob. with complaints of pain, patient is aware regarding the next dose. with iv line on the right ac, saline lock. per morning nurse, he changed the dressing today. bed locked and in lowest position. call light and light button within easy reach.will continue plan of care.
[2019-09-28 20:00] VITALS: BP 118/66
--- NOTE | 2019-09-28 20:06 | NUR ---
HAND-OFF: Report given to Whit Miranda RN. Patient sitting in semi-Doan's position, awake and alert, watching television, on room air, saturating at 96 per cent, bed in lowest position, call light within reach, IV patent in right AC, saline locked, pain at 2/10, treated with [place] 5/325, wound care completed in right groin/perineal area, in no apparent distress.
[2019-09-28] MEDS: HYDROcodone/Acetamin 10/325 tab ORAL PRN (20:44)
[2019-09-29] VITALS (7 sets, daily range): BP systolic 99–115; BP diastolic 61–71
[2019-09-29] MEDS: Zoysn 3.37gm in NS 100ML IVPB SCH ×3 (04:00→20:12)
[2019-09-29] MEDS: HYDROcodone/Acetamin 5/325 tab ORAL PRN (04:29)
[2019-09-29 06:33] LABS: HEMATOCRIT 38.4 % (42.0-52.0); HEMOGLOBIN 13.1 G/DL (14.2-18.0); MEAN CORPUSCULAR VOLUME 93 FL (80-99); PLATELET COUNT 363 K/UL (150-450); RED BLOOD COUNT 4.14 M/UL (4.70-6.10); RED CELL DISTRIBUTION WIDTH 11.1 % (11.6-14.8); WHITE BLOOD COUNT 9.7 K/UL (4.8-10.8)
[2019-09-29 07:28] LABS: ALANINE AMINOTRANSFERASE 164 U/L (12-78); ALBUMIN 2.5 G/DL (3.4-5.0); ALBUMIN/GLOBULIN RATIO 0.6 (1.0-2.7); ALKALINE PHOSPHATASE 163 U/L (46-116); ANION GAP 7 mmol/L (5-15); ASPARTATE AMINO TRANSFERASE 45 U/L (15-37); BILIRUBIN,TOTAL 0.4 MG/DL (0.2-1.0); BLOOD UREA NITROGEN 15 mg/dL (7-18); CALCIUM 8.4 MG/DL (8.5-10.1); CARBON DIOXIDE 27 MMOL/L (21-32); CHLORIDE 105 MMOL/L (98-107); POTASSIUM 4.7 MMOL/L (3.5-5.1); SODIUM 139 MMOL/L (136-145)
--- NOTE | 2019-09-29 07:30 | NUR ---
HAND-OFF: Report given to irma vicente.
--- NOTE | 2019-09-29 08:08 | General Progress Note ---
Assessment/Plan Problem List: (1) Elevated liver enzymes ICD Codes: R74.8 - Abnormal levels of other serum enzymes SNOMED: 089331509 (2) Electrolyte imbalance ICD Codes: E87.8 - Other disorders of electrolyte and fluid balance, not elsewhere classified SNOMED: 907649049 (3) Perirectal abscess ICD Codes: K61.1 - Rectal abscess SNOMED: 39480111 (4) Sepsis ICD Codes: A41.9 - Sepsis, unspecified organism SNOMED: 85985384 Qualifiers: Qualified Codes: A41.9 - Sepsis, unspecified organism (5) Abscess of buttock, right ICD Codes: L02.31 - Cutaneous abscess of buttock SNOMED: 43572804 Assessment/Plan: abd us>> reviewed hepatitis panel>>> neg ppi daily repeat labs improving LFTS abx per id Subjective Allergies: Coded Allergies: No Known Allergies (Unverified , 09/21/19) Objective Last 24 Hour Vital Signs Date Time Temp Pulse Resp B/P (MAP) Pulse Ox O2 Delivery O2 Flow Rate FiO2 09/29/19 04:00 98.0 61 20 106/63 (77) 97 09/29/19 00:00 97.5 67 20 109/62 (78) 98 09/28/19 21:00 Room Air 09/28/19 20:00 98.1 68 18 118/66 (83) 98 09/28/19 17:05 98.1 09/28/19 16:00 98.2 66 18 109/71 (84) 98 09/28/19 12:00 98.5 65 20 99/66 (77) 97 09/28/19 09:00 Room Air Intake and Output 09/28/19 09/29/19 19:00 07:00 Intake Total 1000.0 ml 700 ml Output Total 1050 ml Balance 1000.0 ml -350 ml Intake Oral 780 ml 700 ml IV Total 220.0 ml Output Urine Total 1050 ml # Voids 4 2 Laboratory Tests 09/29/19 05:10: White Blood Count 9.7, Red Blood Count 4.14L, Hemoglobin 13.1L, Hematocrit 38.4L , Mean Corpuscular Volume 93, Mean Corpuscular Hemoglobin 31.6H, Mean Corpuscular Hemoglobin Concent 34.1, Red Cell Distribution Width 11.1L, Platelet Count 363, Mean Platelet Volume 5.6L, Neutrophils (%) (Auto) , Lymphocytes (%) (Auto) , Monocytes (%) (Auto) , Eosinophils (%) (Auto) , Basophils (%) (Auto) , Neutrophils % (Manual) [Pending], Lymphocytes % (Manual) [Pending], Platelet Estimate [Pending], Platelet Morphology [Pending], Sodium Level 139, Potassium Level 4.7, Chloride Level 105, Carbon Dioxide Level 27, Anion Gap 7, Blood Urea Nitrogen 15, Creatinine 1.0, Estimat Glomerular Filtration Rate > 60, Glucose Level 101, Calcium Level 8.4L, Total Bilirubin 0.4 , Aspartate Amino Transf (AST/SGOT) 45H, Alanine Aminotransferase (ALT/SGPT) 164H, Alkaline Phosphatase 163H, Total Protein 6.7, Albumin 2.5L, Globulin 4.2, Albumin/Globulin Ratio 0.6L Height (Feet): 5 Height (Inches): 2.00 Weight (Pounds): 171 General Appearance: alert EENT: normal ENT inspection Neck: supple Cardiovascular: normal rate Respiratory/Chest: decreased breath sounds Abdomen: normal bowel sounds, non tender, soft Extremities: non-tender Gianni Butts MD Sep 29, 2019 08:08
--- NOTE | 2019-09-29 08:19 | NUR ---
NURSE NOTES: Patient alert x4; on room air, no sing of distress and shortness of breath; no sing of chest pain; IV Right AC 18G Zosyn running; urinal within reach; wound dressing in place; side rails up x2, breaks engaged, bed at lowest position; call light within reach; will keep monitoring.
--- NOTE | 2019-09-29 09:22 | Nephrology Progress Note ---
Assessment/Plan Problem List: (1) Abscess of buttock, right (2) Sepsis (3) Hyperkalemia (4) Electrolyte imbalance Assessment: Hyponatremia (5) Elevated liver enzymes Assessment: Lowering Assessment Hyperkalemia Hyponatremia Left buttocks abscess, sepsis, leukocytosis Normal renal functions No urine analysis available Plan Plan: Keep hydrated LFTs are declining Change her diet to medium carb Monitor electrolytes, and liver function tests Urine analysis, still pending results Avoid nephrotoxic's Random Vanco level , noted Kayexalate for high potassium as needed Subjective ROS Limited/Unobtainable: No Objective Objective Last 24 Hour Vital Signs Date Time Temp Pulse Resp B/P (MAP) Pulse Ox O2 Delivery O2 Flow Rate FiO2 09/29/19 04:00 98.0 61 20 106/63 (77) 97 09/29/19 00:00 97.5 67 20 109/62 (78) 98 09/28/19 21:00 Room Air 09/28/19 20:00 98.1 68 18 118/66 (83) 98 09/28/19 17:05 98.1 09/28/19 16:00 98.2 66 18 109/71 (84) 98 09/28/19 12:00 98.5 65 20 99/66 (77) 97 Intake and Output 09/28/19 09/29/19 19:00 07:00 Intake Total 1000.0 ml 700 ml Output Total 1050 ml Balance 1000.0 ml -350 ml Intake Oral 780 ml 700 ml IV Total 220.0 ml Output Urine Total 1050 ml # Voids 4 2 Current Medications Medications (Trade) Dose Ordered Sig/Jasiel Route PRN Reason Start Time Stop Time Status Last Admin Dose Admin Acetaminophen (Tylenol) 650 mg Q4H PRN ORAL FEVER 09/25/19 13:30 10/25/19 13:29 Acetaminophen/ Hydrocodone Bitart ([place] 10/325) 1 tab Q4H PRN ORAL Severe Pain (Pain Scale 7-10) 09/25/19 13:30 10/02/19 13:29 09/28/19 20:44 Acetaminophen/ Hydrocodone Bitart ([place] 5/325) 1 tab Q4H PRN ORAL Moderate Pain (Pain Scale 4-6) 09/25/19 13:30 10/02/19 13:29 09/29/19 04:29 Docusate Sodium (Colace) 100 mg THREE TIMES A DAY ORAL 09/26/19 18:30 10/27/19 08:59 09/28/19 17:07 Heparin Sodium (Porcine) (Heparin 5000 units/ml) 5,000 units EVERY 12 HOURS SUBQ 09/22/19 09:00 11/06/19 08:59 09/28/19 20:45 Magnesium Hydroxide (Mom) 30 ml BIDPRN PRN ORAL Constipation 09/25/19 13:30 10/25/19 13:29 Nitroglycerin (Ntg) 0.4 mg Every 5 Minutes PRN SL Prn Chest Pain 09/22/19 00:45 10/22/19 00:44 Ondansetron HCl (Zofran) 4 mg Q6H PRN IVP Nausea & Vomiting 09/25/19 13:30 10/25/19 13:29 Pantoprazole (Protonix) 40 mg DAILY ORAL 09/28/19 09:00 10/26/19 20:59 09/28/19 08:31 Piperacillin Sod/ Tazobactam Sod 3.375 gm/Sodium Chloride 110 ml @ 27.5 mls/hr Q8H IVPB 09/27/19 20:00 10/04/19 19:59 09/29/19 04:00 Polyethylene Glycol (Miralax) 17 gm DAILYPRN PRN ORAL Constipation 09/25/19 13:45 10/22/19 00:44 Sennosides (Senokot) 8.6 mg BIDPRN PRN ORAL Constipation 09/25/19 13:30 10/25/19 13:29 Temazepam (RestoriL) 7.5 mg DAILYPRN PRN ORAL Insomnia 09/25/19 13:30 10/02/19 13:29 Laboratory Tests 09/29/19 05:10: White Blood Count 9.7, Red Blood Count 4.14L, Hemoglobin 13.1L, Hematocrit 38.4L , Mean Corpuscular Volume 93, Mean Corpuscular Hemoglobin 31.6H, Mean Corpuscular Hemoglobin Concent 34.1, Red Cell Distribution Width 11.1L, Platelet Count 363, Mean Platelet Volume 5.6L, Neutrophils (%) (Auto) , Lymphocytes (%) (Auto) , Monocytes (%) (Auto) , Eosinophils (%) (Auto) , Basophils (%) (Auto) , Neutrophils % (Manual) [Pending], Lymphocytes % (Manual) [Pending], Platelet Estimate [Pending], Platelet Morphology [Pending], Sodium Level 139, Potassium Level 4.7, Chloride Level 105, Carbon Dioxide Level 27, Anion Gap 7, Blood Urea Nitrogen 15, Creatinine 1.0, Estimat Glomerular Filtration Rate > 60, Glucose Level 101, Calcium Level 8.4L, Total Bilirubin 0.4 , Aspartate Amino Transf (AST/SGOT) 45H, Alanine Aminotransferase (ALT/SGPT) 164H, Alkaline Phosphatase 163H, Total Protein 6.7, Albumin 2.5L, Globulin 4.2, Albumin/Globulin Ratio 0.6L Height (Feet): 5 Height (Inches): 2.00 Weight (Pounds): 171 General Appearance: no apparent distress Cardiovascular: normal rate Respiratory/Chest: decreased breath sounds Abdomen: soft Objective No change Valdez Christian MD Sep 29, 2019 09:22
[2019-09-29] MEDS: Docusate 100mg cap ORAL SCH ×3 (10:34→17:07)
[2019-09-29] MEDS: Heparin 5000 units/ml inj SUBQ SCH ×2 (10:35→20:14)
[2019-09-29] MEDS: HYDROcodone/Acetamin 10/325 tab ORAL PRN ×2 (10:36→20:13)
--- NOTE | 2019-09-29 15:01 | NUR ---
CASE MANAGEMENT:REVIEW SI;SEPSIS. PERIRECTAL ABSCESS, RIGHT BUTTOCK ABSCESS S/P DAY #4 I&D. 98.6 67 20 106/68 97% ON RA CA 8.4 AST 45 ALT 164 ALK PHOS 163 ALB 2.5 IS;ZOSYN IV Q8 HRS PROTONIX PO QD COLACE PO TID NORCO PO Q4 HRS PRN SENOKOT PO BID PRN MED SURG STATUS DCP;PATIENT IS FROM HOME PLAN;KAYEXALATE PRN FOR ELEVATED K+ URINALYSIS MONITOR ELECTROLYTES & LFT POSSIBLE REPEAT I&D
--- NOTE | 2019-09-29 16:00 | NUR ---
NURSE NOTES: Wound dressing changed; patient tolerated well.
--- NOTE | 2019-09-29 19:30 | NUR ---
NURSE NOTES: received patient on bed, awake and verbally responsive.a&o4. with urinal in the bedside. respirations even and unlabored. no sob. with iv line on the right ac. with complaints of pain on the surgery site.per patient wants to have it at 2030. verbalized understanding. bed locked and in lowest position. call light and light button within easy reach. will continue plan of care.
--- NOTE | 2019-09-29 19:34 | NUR ---
HAND-OFF: Report given to SAGE Miranda.
--- NOTE | 2019-09-29 20:33 | Surgery Progress Note ---
Surgery Progress Note Subjective Procedure Performed incision and drainage of perirectal / perineal abscess Symptoms: improved Objective Last 24 Hour Vital Signs Date Time Temp Pulse Resp B/P (MAP) Pulse Ox O2 Delivery O2 Flow Rate FiO2 09/29/19 16:00 98.2 66 18 109/71 (84) 98 09/29/19 12:00 98.5 65 20 99/66 (77) 97 09/29/19 11:06 98.6 09/29/19 09:00 Room Air 09/29/19 08:00 98.6 62 20 115/70 (85) 97 09/29/19 04:00 98.0 61 20 106/63 (77) 97 09/29/19 00:00 97.5 67 20 109/62 (78) 98 09/28/19 21:00 Room Air I&O Intake and Output 09/28/19 09/29/19 19:00 07:00 Intake Total 1000.0 ml 700 ml Output Total 1050 ml Balance 1000.0 ml -350 ml Intake Oral 780 ml 700 ml IV Total 220.0 ml Output Urine Total 1050 ml # Voids 4 2 Dressing: saturated Wound: clean Drains: dewey Cardiovascular: RSR Respiratory: clear Abdomen: soft, flat, non-tender Extremities: no edema, no tenderness, no cyanosis Laboratory Tests Test 09/29/19 05:10 White Blood Count 9.7 K/UL (4.8-10.8) Red Blood Count 4.14 M/UL (4.70-6.10) L Hemoglobin 13.1 G/DL (14.2-18.0) L Hematocrit 38.4 % (42.0-52.0) L Mean Corpuscular Volume 93 FL (80-99) Mean Corpuscular Hemoglobin 31.6 PG (27.0-31.0) H Mean Corpuscular Hemoglobin Concent 34.1 G/DL (32.0-36.0) Red Cell Distribution Width 11.1 % (11.6-14.8) L Platelet Count 363 K/UL (150-450) Mean Platelet Volume 5.6 FL (6.5-10.1) L Neutrophils (%) (Auto) % (45.0-75.0) Lymphocytes (%) (Auto) % (20.0-45.0) Monocytes (%) (Auto) % (1.0-10.0) Eosinophils (%) (Auto) % (0.0-3.0) Basophils (%) (Auto) % (0.0-2.0) Differential Total Cells Counted 100 Neutrophils % (Manual) 58 % (45-75) Lymphocytes % (Manual) 26 % (20-45) Monocytes % (Manual) 8 % (1-10) Eosinophils % (Manual) 3 % (0-3) Basophils % (Manual) 0 % (0-2) Metamyelocytes % 1 % (0-0) H Myelocytes % 2 % (0-0) H Band Neutrophils 2 % (0-8) Platelet Estimate Adequate Platelet Morphology Normal Red Blood Cell Morphology Normal Sodium Level 139 MMOL/L (136-145) Potassium Level 4.7 MMOL/L (3.5-5.1) Chloride Level 105 MMOL/L (98-107) Carbon Dioxide Level 27 MMOL/L (21-32) Anion Gap 7 mmol/L (5-15) Blood Urea Nitrogen 15 mg/dL (7-18) Creatinine 1.0 MG/DL (0.55-1.30) Estimat Glomerular Filtration Rate > 60 mL/min (>60) Glucose Level 101 MG/DL (74-106) Calcium Level 8.4 MG/DL (8.5-10.1) L Total Bilirubin 0.4 MG/DL (0.2-1.0) Aspartate Amino Transf (AST/SGOT) 45 U/L (15-37) H Alanine Aminotransferase (ALT/SGPT) 164 U/L (12-78) H Alkaline Phosphatase 163 U/L (46-116) H Total Protein 6.7 G/DL (6.4-8.2) Albumin 2.5 G/DL (3.4-5.0) L Globulin 4.2 g/dL Albumin/Globulin Ratio 0.6 (1.0-2.7) L Plan Problems: (1) Sepsis Assessment & Plan: Patient presents with abnormal labs, leukocytosis, scrotal cellulitis perineal cellulitis active infection. On evaluation at bedside patient continues to have packing left from his I&D which was not removed or cared for since incision and drainage. He states is very painful feels are comfortable. Packing dressings were removed by myself. No purulent drainage noted. Some cellulitis and edema around the perineum noted. Likely infectious source is this buttock abscess that is now perineal cellulitis as well. The CT was reviewed and gas identified but this is not seem like a Mary's gangrene or other severe process as it seems like he had a perirectal abscess that was drained and adequately furthermore placed on care plan with packing and dressings which have not been completed since. Now it is worsened. Will need to monitor closely. IV antibiotics. IV fluids. Discussed care plan with patient. Unfortunately he failed outpatient management and now requires inpatient care plan. May proceed with a larger incision and drainage if does not improve over the next 24 hours. Will monitor closely. Thank you for let me participate in patient's care worsening OR for exploration I&D s/p I&D dewey in place dressings changed cont abx trend labs will monitor shower today dressing changes iv abx (2) Abscess of buttock, right Assessment & Plan: Findings: There is considerable edema of the skin of the scrotum. This also extends into the penile shaft. There is infiltration of the pubic and suprapubic subcutaneous fat as well. Numerous gas bubbles are seen within the perineum, extending from the scrotum and to the posterior perineum. There is likewise edema of the surrounding skin. No discrete fluid collections are demonstrated. Dense material is seen associated with the air bubbles in the posterior perineum. This may be packing material related to prior incision and drainage as this appears to be deep to a superficial skin defect. A few gas bubbles are seen in the bilateral gluteus cristiano musculature. The bones are unremarkable. The pelvic viscera are unremarkable. Impression: Considerable edema of the scrotal wall, penile shaft, and superficial perineum. Given stated clinical history, likely indicates cellulitis Considerable gas within the perineum and anterior inferior right pubic region. This may be related to prior incision and drainage, but given that it extends well beyond the area of apparent incision extent the possibility of infection with a gas- forming organism should also be considered. Bilateral gluteal gas bubbles. May be related to recent injections, but the possibility of infectious process in this location should also be considered. Jerson Owens Sep 29, 2019 20:33
--- NOTE | 2019-09-29 23:30 | Internal Med Progress Note ---
Subjective Physician Name Sheldon Webster Attending Physician Sheldon Webster MD Current Medications Medications (Trade) Dose Ordered Sig/Jasiel Route PRN Reason Start Time Stop Time Status Last Admin Dose Admin Acetaminophen (Tylenol) 650 mg Q4H PRN ORAL FEVER 09/25/19 13:30 10/25/19 13:29 Acetaminophen/ Hydrocodone Bitart ([place] 10/325) 1 tab Q4H PRN ORAL Severe Pain (Pain Scale 7-10) 09/25/19 13:30 10/02/19 13:29 09/29/19 20:13 Acetaminophen/ Hydrocodone Bitart ([place] 5/325) 1 tab Q4H PRN ORAL Moderate Pain (Pain Scale 4-6) 09/25/19 13:30 10/02/19 13:29 09/29/19 04:29 Docusate Sodium (Colace) 100 mg THREE TIMES A DAY ORAL 09/26/19 18:30 10/27/19 08:59 09/29/19 17:07 Heparin Sodium (Porcine) (Heparin 5000 units/ml) 5,000 units EVERY 12 HOURS SUBQ 09/22/19 09:00 11/06/19 08:59 09/29/19 20:14 Magnesium Hydroxide (Mom) 30 ml BIDPRN PRN ORAL Constipation 09/25/19 13:30 10/25/19 13:29 Nitroglycerin (Ntg) 0.4 mg Every 5 Minutes PRN SL Prn Chest Pain 09/22/19 00:45 10/22/19 00:44 Ondansetron HCl (Zofran) 4 mg Q6H PRN IVP Nausea & Vomiting 09/25/19 13:30 10/25/19 13:29 Pantoprazole (Protonix) 40 mg DAILY ORAL 09/28/19 09:00 10/26/19 20:59 09/29/19 10:34 Piperacillin Sod/ Tazobactam Sod 3.375 gm/Sodium Chloride 110 ml @ 27.5 mls/hr Q8H IVPB 09/27/19 20:00 10/04/19 19:59 09/29/19 20:12 Polyethylene Glycol (Miralax) 17 gm DAILYPRN PRN ORAL Constipation 09/25/19 13:45 10/22/19 00:44 Sennosides (Senokot) 8.6 mg BIDPRN PRN ORAL Constipation 09/25/19 13:30 10/25/19 13:29 Temazepam (RestoriL) 7.5 mg DAILYPRN PRN ORAL Insomnia 09/25/19 13:30 10/02/19 13:29 Allergies: Coded Allergies: No Known Allergies (Unverified , 09/21/19) Subjective awake, alert, responsive, NAD Objective Last Vital Signs Date Time Temp Pulse Resp B/P (MAP) Pulse Ox O2 Delivery O2 Flow Rate FiO2 09/29/19 21:00 Room Air 09/29/19 20:00 98.2 68 18 113/67 (82) 98 09/26/19 07:00 21 09/25/19 13:45 3 Laboratory Tests Test 09/29/19 05:10 White Blood Count 9.7 K/UL (4.8-10.8) Red Blood Count 4.14 M/UL (4.70-6.10) L Hemoglobin 13.1 G/DL (14.2-18.0) L Hematocrit 38.4 % (42.0-52.0) L Mean Corpuscular Volume 93 FL (80-99) Mean Corpuscular Hemoglobin 31.6 PG (27.0-31.0) H Mean Corpuscular Hemoglobin Concent 34.1 G/DL (32.0-36.0) Red Cell Distribution Width 11.1 % (11.6-14.8) L Platelet Count 363 K/UL (150-450) Mean Platelet Volume 5.6 FL (6.5-10.1) L Neutrophils (%) (Auto) % (45.0-75.0) Lymphocytes (%) (Auto) % (20.0-45.0) Monocytes (%) (Auto) % (1.0-10.0) Eosinophils (%) (Auto) % (0.0-3.0) Basophils (%) (Auto) % (0.0-2.0) Differential Total Cells Counted 100 Neutrophils % (Manual) 58 % (45-75) Lymphocytes % (Manual) 26 % (20-45) Monocytes % (Manual) 8 % (1-10) Eosinophils % (Manual) 3 % (0-3) Basophils % (Manual) 0 % (0-2) Metamyelocytes % 1 % (0-0) H Myelocytes % 2 % (0-0) H Band Neutrophils 2 % (0-8) Platelet Estimate Adequate Platelet Morphology Normal Red Blood Cell Morphology Normal Sodium Level 139 MMOL/L (136-145) Potassium Level 4.7 MMOL/L (3.5-5.1) Chloride Level 105 MMOL/L (98-107) Carbon Dioxide Level 27 MMOL/L (21-32) Anion Gap 7 mmol/L (5-15) Blood Urea Nitrogen 15 mg/dL (7-18) Creatinine 1.0 MG/DL (0.55-1.30) Estimat Glomerular Filtration Rate > 60 mL/min (>60) Glucose Level 101 MG/DL (74-106) Calcium Level 8.4 MG/DL (8.5-10.1) L Total Bilirubin 0.4 MG/DL (0.2-1.0) Aspartate Amino Transf (AST/SGOT) 45 U/L (15-37) H Alanine Aminotransferase (ALT/SGPT) 164 U/L (12-78) H Alkaline Phosphatase 163 U/L (46-116) H Total Protein 6.7 G/DL (6.4-8.2) Albumin 2.5 G/DL (3.4-5.0) L Globulin 4.2 g/dL Albumin/Globulin Ratio 0.6 (1.0-2.7) L Intake and Output 09/28/19 09/29/19 19:00 07:00 Intake Total 1000.0 ml 700 ml Output Total 1050 ml Balance 1000.0 ml -350 ml Intake Oral 780 ml 700 ml IV Total 220.0 ml Output Urine Total 1050 ml # Voids 4 2 Objective PHYSICAL EXAMINATION: GENERAL: The patient is awake and responsive, in no acute distress. HEAD AND NECK EXAMINATION: Pupils are equal and reactive to light. Extraocular movements intact. Neck was supple. No JVD. LUNGS: CTA. No wheezing or rales. HEART: S1, S2. Regular rhythm. No gallops. ABDOMEN: Soft and nontender, Not distended, Mildly obese. EXTREMITIES: No cyanosis, clubbing, or edema. PELVIC: right buttock area drainage abscess as well as scrotum drainage area with less erythema and edematous. NEUROLOGIC: FLOW MACHINE OPERATOR II through XII are grossly normal. The patient moving all extremities. Gait is intact. Assessment/Plan Assessment/Plan Assessment/Plan Problem List: (1) Leukocytosis Assessment & Plan: Due to abscess/cellulitis; continue antibiotics per ID (2) Cellulitis, perineum Assessment & Plan: S/P linezolid, flagyl and cefepime; start zosyn per ID=Dr Marrufo. May discharge on oral augmentin for 14 days total (3) Abscess of buttock, right Assessment & Plan: S/P Incision and drainage 09/25/19. See surgery note=Dr Owens (4) Perirectal abscess (5) Abscess, perineum (6) Elevated liver enzymes Assessment & Plan: Improving. Abdominal ultrasound=essentially normal. GI=Dr Butts Continue Zosyn #1 (abx d #11/25) -upon discharge, can be transitioned to PO Augmentin 875/125mg po bid to complete course DC home in AM F/U with Dr. Owens in on Wednesday. Sheldon Webster MD Sep 29, 2019 23:30
[2019-09-30 04:00] VITALS: BP 109/65
[2019-09-30] MEDS: Zoysn 3.37gm in NS 100ML IVPB SCH ×2 (05:09→11:40)
[2019-09-30] MEDS: HYDROcodone/Acetamin 5/325 tab ORAL PRN ×2 (05:09→12:59)
--- NOTE | 2019-09-30 07:28 | NUR ---
HAND-OFF: Report given to irma gurrola.
--- NOTE | 2019-09-30 07:36 | NUR ---
NURSE NOTES: PT AXOX4, CALM, RESTING IN BED AND EATING BREAKFAST. PT STATES PAIN IS MINIMAL, 2/10 AT THIS TIME. DENIES SOB OR DIZZINESS WHEN AMBULATING. STATES LAST BOWEL MOVEMENT WAS YESTERDAY, SOFT. BED IN LOWEST POSITION WITH BEDSIDE RAILS X2 RAISED. CALL LIGHT WITHIN REACH. WILL CONTINUE TO MONITOR.
--- NOTE | 2019-09-30 07:41 | General Progress Note ---
Assessment/Plan Problem List: (1) Elevated liver enzymes ICD Codes: R74.8 - Abnormal levels of other serum enzymes SNOMED: 076266367 (2) Electrolyte imbalance ICD Codes: E87.8 - Other disorders of electrolyte and fluid balance, not elsewhere classified SNOMED: 318217157 (3) Perirectal abscess ICD Codes: K61.1 - Rectal abscess SNOMED: 79034134 (4) Sepsis ICD Codes: A41.9 - Sepsis, unspecified organism SNOMED: 81272521 Qualifiers: Qualified Codes: A41.9 - Sepsis, unspecified organism (5) Abscess of buttock, right ICD Codes: L02.31 - Cutaneous abscess of buttock SNOMED: 23181655 Assessment/Plan: abd us>> reviewed hepatitis panel>>> neg ppi daily repeat labs improving LFTS abx per id Subjective Allergies: Coded Allergies: No Known Allergies (Unverified , 09/21/19) Objective Last 24 Hour Vital Signs Date Time Temp Pulse Resp B/P (MAP) Pulse Ox O2 Delivery O2 Flow Rate FiO2 09/30/19 04:00 97.8 65 18 109/65 (80) 98 09/29/19 23:50 97.9 68 18 107/61 (76) 98 09/29/19 21:00 Room Air 09/29/19 20:00 98.2 68 18 113/67 (82) 98 09/29/19 16:00 98.2 66 18 109/71 (84) 98 09/29/19 12:00 98.5 65 20 99/66 (77) 97 09/29/19 11:06 98.6 09/29/19 09:00 Room Air 09/29/19 08:00 98.6 62 20 115/70 (85) 97 Intake and Output 09/29/19 09/30/19 19:00 07:00 Intake Total 900 ml 240 ml Balance 900 ml 240 ml Intake Oral 900 ml 240 ml # Voids 5 2 Height (Feet): 5 Height (Inches): 2.00 Weight (Pounds): 171 General Appearance: alert EENT: normal ENT inspection Neck: supple Cardiovascular: normal rate Respiratory/Chest: decreased breath sounds Abdomen: normal bowel sounds, non tender, soft Extremities: non-tender Gianni Butts MD Sep 30, 2019 07:41
[2019-09-30 08:00] VITALS: BP 127/72
[2019-09-30] MEDS: Docusate 100mg cap ORAL SCH ×2 (08:08→12:57)
[2019-09-30] MEDS ORDERED: AUGMENTIN 875-1 EAC1 ORAL (08:10)
[2019-09-30] MEDS: Heparin 5000 units/ml inj SUBQ SCH (08:11)
[2019-09-30 08:33] LABS: BASOPHILS % (AUTO) 1.2 % (0.0-2.0); EOSINOPHILS % (AUTO) 1.7 % (0.0-3.0); HEMOGLOBIN 14.2 G/DL (14.2-18.0); LYMPHOCYTES % (AUTO) 27.3 % (20.0-45.0); MEAN CORPUSCULAR VOLUME 93 FL (80-99); NEUTROPHILS % (AUTO) 62.8 % (45.0-75.0); PLATELET COUNT 430 K/UL (150-450); RED BLOOD COUNT 4.52 M/UL (4.70-6.10); RED CELL DISTRIBUTION WIDTH 11.3 % (11.6-14.8); WHITE BLOOD COUNT 7.3 K/UL (4.8-10.8)
[2019-09-30 09:15] LABS: ALANINE AMINOTRANSFERASE 119 U/L (12-78); ALBUMIN 2.8 G/DL (3.4-5.0); ALBUMIN/GLOBULIN RATIO 0.6 (1.0-2.7); ALKALINE PHOSPHATASE 159 U/L (46-116); ANION GAP 7 mmol/L (5-15); ASPARTATE AMINO TRANSFERASE 29 U/L (15-37); BILIRUBIN,TOTAL 0.2 MG/DL (0.2-1.0); BLOOD UREA NITROGEN 15 mg/dL (7-18); CALCIUM 9.1 MG/DL (8.5-10.1); CARBON DIOXIDE 27 MMOL/L (21-32); CHLORIDE 104 MMOL/L (98-107); CREATININE 0.8 MG/DL (0.55-1.30); POTASSIUM 4.3 MMOL/L (3.5-5.1); SODIUM 138 MMOL/L (136-145)
--- NOTE | 2019-09-30 10:22 | Infectious Diseases Prog Note ---
Assessment/Plan Assessment/Plan Afebrile Leukocytosis; improving -CT chest: There is mild left basilar atelectasis. No consolidating infiltrates are identified. 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 faecium (S amp, vanco), E. avium (S amp, vanco) -CT abd/p: Considerable edema of the scrotal wall, penile shaft, and superficial perineum. Given stated clinical history, likely indicates cellulitis. Considerable gas within the perineum and anterior inferior right pubic region. This may be related to prior incision and drainage, but given that it extends well beyond the area of apparent incision extent the possibility of infection with a gas-forming organism should also be considered. Bilateral gluteal gas bubbles. May be related to recent injections, but the possibility of infectious process in this location should also be considered. Abd US: Pancreas not well seen. Abdominal aortic bifurcation not well seen due to bowel gas otherwise the abdominal aorta appears within limits. Study otherwise appears within limits. Plan: -Continue Zosyn #2 (abx d #/) -upon discharge, can be transitioned to PO Augmentin 875/125mg po bid to complete course -09/26 SP Cefepime and Flagyl #5, Linezolid #3 -09/24 SP IV Vancomycin #3 monitor temp and cbc f/u wound cx f/u BCx Sx f/u DW RN Subjective Allergies: Coded Allergies: No Known Allergies (Unverified , 09/21/19) Subjective Afebrile No Leukoctyosis Objective Vital Signs Last 24 Hour Vital Signs Date Time Temp Pulse Resp B/P (MAP) Pulse Ox O2 Delivery O2 Flow Rate FiO2 09/30/19 09:00 Room Air 09/30/19 08:00 97.9 85 20 127/72 (90) 99 09/30/19 04:00 97.8 65 18 109/65 (80) 98 09/29/19 23:50 97.9 68 18 107/61 (76) 98 09/29/19 21:00 Room Air 09/29/19 20:00 98.2 68 18 113/67 (82) 98 09/29/19 16:00 98.2 66 18 109/71 (84) 98 09/29/19 12:00 98.5 65 20 99/66 (77) 97 09/29/19 11:06 98.6 Height (Feet): 5 Height (Inches): 2.00 Weight (Pounds): 171 Objective Gen: NAD HEENT: anicteric sclera CV: RRR. S1+S2. no rubs or gallop Resp: RRR. CTAB. no wheezes or crackles. Abd: soft. no TTP. nondistended Laboratory Tests Test 09/30/19 07:18 White Blood Count 7.3 K/UL (4.8-10.8) Red Blood Count 4.52 M/UL (4.70-6.10) L Hemoglobin 14.2 G/DL (14.2-18.0) Hematocrit 42.0 % (42.0-52.0) Mean Corpuscular Volume 93 FL (80-99) Mean Corpuscular Hemoglobin 31.4 PG (27.0-31.0) H Mean Corpuscular Hemoglobin Concent 33.7 G/DL (32.0-36.0) Red Cell Distribution Width 11.3 % (11.6-14.8) L Platelet Count 430 K/UL (150-450) Mean Platelet Volume 5.1 FL (6.5-10.1) L Neutrophils (%) (Auto) 62.8 % (45.0-75.0) Lymphocytes (%) (Auto) 27.3 % (20.0-45.0) Monocytes (%) (Auto) 7.0 % (1.0-10.0) Eosinophils (%) (Auto) 1.7 % (0.0-3.0) Basophils (%) (Auto) 1.2 % (0.0-2.0) Sodium Level 138 MMOL/L (136-145) Potassium Level 4.3 MMOL/L (3.5-5.1) Chloride Level 104 MMOL/L (98-107) Carbon Dioxide Level 27 MMOL/L (21-32) Anion Gap 7 mmol/L (5-15) Blood Urea Nitrogen 15 mg/dL (7-18) Creatinine 0.8 MG/DL (0.55-1.30) Estimat Glomerular Filtration Rate > 60 mL/min (>60) Glucose Level 98 MG/DL (74-106) Calcium Level 9.1 MG/DL (8.5-10.1) Total Bilirubin 0.2 MG/DL (0.2-1.0) Aspartate Amino Transf (AST/SGOT) 29 U/L (15-37) Alanine Aminotransferase (ALT/SGPT) 119 U/L (12-78) H Alkaline Phosphatase 159 U/L (46-116) H Total Protein 7.2 G/DL (6.4-8.2) Albumin 2.8 G/DL (3.4-5.0) L Globulin 4.4 g/dL Albumin/Globulin Ratio 0.6 (1.0-2.7) L Current Medications Medications (Trade) Dose Ordered Sig/Jasiel Route PRN Reason Start Time Stop Time Status Last Admin Dose Admin Acetaminophen (Tylenol) 650 mg Q4H PRN ORAL FEVER 09/25/19 13:30 10/25/19 13:29 Acetaminophen/ Hydrocodone Bitart ([place] 10/325) 1 tab Q4H PRN ORAL Severe Pain (Pain Scale 7-10) 09/25/19 13:30 10/02/19 13:29 09/29/19 20:13 Acetaminophen/ Hydrocodone Bitart ([place] 5/325) 1 tab Q4H PRN ORAL Moderate Pain (Pain Scale 4-6) 09/25/19 13:30 10/02/19 13:29 09/30/19 05:09 Docusate Sodium (Colace) 100 mg THREE TIMES A DAY ORAL 09/26/19 18:30 10/27/19 08:59 09/30/19 08:08 Heparin Sodium (Porcine) (Heparin 5000 units/ml) 5,000 units EVERY 12 HOURS SUBQ 09/22/19 09:00 11/06/19 08:59 09/30/19 08:11 Magnesium Hydroxide (Mom) 30 ml BIDPRN PRN ORAL Constipation 09/25/19 13:30 10/25/19 13:29 Nitroglycerin (Ntg) 0.4 mg Every 5 Minutes PRN SL Prn Chest Pain 09/22/19 00:45 10/22/19 00:44 Ondansetron HCl (Zofran) 4 mg Q6H PRN IVP Nausea & Vomiting 09/25/19 13:30 10/25/19 13:29 Pantoprazole (Protonix) 40 mg DAILY ORAL 09/28/19 09:00 10/26/19 20:59 09/30/19 08:08 Piperacillin Sod/ Tazobactam Sod 3.375 gm/Sodium Chloride 110 ml @ 27.5 mls/hr Q8H IVPB 09/27/19 20:00 10/04/19 19:59 09/30/19 05:09 Polyethylene Glycol (Miralax) 17 gm DAILYPRN PRN ORAL Constipation 09/25/19 13:45 10/22/19 00:44 Sennosides (Senokot) 8.6 mg BIDPRN PRN ORAL Constipation 09/25/19 13:30 10/25/19 13:29 Temazepam (RestoriL) 7.5 mg DAILYPRN PRN ORAL Insomnia 09/25/19 13:30 10/02/19 13:29 Quique Crow MD Sep 30, 2019 10:22
--- NOTE | 2019-09-30 10:32 | NUR ---
NURSE NOTES: DR MCGARRY WITH TELEPHONE ORDER FOR DISCAHRGE AND FOLLOW UPW ITH DR DOSHI ON FOLLOWING Wednesday10/02/19 OR Wednesday10/03/19. PER DR DU MD WILL SEE PT TODAY AND DECIDE WHETHER PT IS CLEARED FOR DISCHARGE.
[2019-09-30 11:25] VITALS: BP 109/66
--- NOTE | 2019-09-30 11:28 | Nephrology Progress Note ---
Assessment/Plan Problem List: (1) Abscess of buttock, right (2) Sepsis (3) Hyperkalemia (4) Electrolyte imbalance Assessment: Hyponatremia (5) Elevated liver enzymes Assessment: Lowering Assessment Hyperkalemia Hyponatremia Left buttocks abscess, sepsis, leukocytosis Normal renal functions No urine analysis available Plan Plan: Keep hydrated LFTs are declining Change her diet to medium carb Monitor electrolytes, and liver function tests Urine analysis, still pending results Avoid nephrotoxic's Random Vanco level , noted Kayexalate for high potassium as needed Subjective ROS Limited/Unobtainable: No Constitutional: Reports: malaise Objective Objective Last 24 Hour Vital Signs Date Time Temp Pulse Resp B/P (MAP) Pulse Ox O2 Delivery O2 Flow Rate FiO2 09/30/19 11:25 98.2 78 20 109/66 (80) 94 09/30/19 09:00 Room Air 09/30/19 08:00 97.9 85 20 127/72 (90) 99 09/30/19 04:00 97.8 65 18 109/65 (80) 98 09/29/19 23:50 97.9 68 18 107/61 (76) 98 09/29/19 21:00 Room Air 09/29/19 20:00 98.2 68 18 113/67 (82) 98 09/29/19 16:00 98.2 66 18 109/71 (84) 98 09/29/19 12:00 98.5 65 20 99/66 (77) 97 Intake and Output 09/29/19 09/30/19 19:00 07:00 Intake Total 900 ml 267.5 ml Balance 900 ml 267.5 ml Intake Oral 900 ml 240 ml IV Total 27.5 ml # Voids 5 2 Laboratory Tests 09/30/19 07:18: White Blood Count 7.3, Red Blood Count 4.52L, Hemoglobin 14.2, Hematocrit 42.0, Mean Corpuscular Volume 93, Mean Corpuscular Hemoglobin 31.4H, Mean Corpuscular Hemoglobin Concent 33.7, Red Cell Distribution Width 11.3L, Platelet Count 430, Mean Platelet Volume 5.1L, Neutrophils (%) (Auto) 62.8, Lymphocytes (%) (Auto) 27.3, Monocytes (%) (Auto) 7.0, Eosinophils (%) (Auto) 1.7, Basophils (%) (Auto ) 1.2, Sodium Level 138, Potassium Level 4.3, Chloride Level 104, Carbon Dioxide Level 27, Anion Gap 7, Blood Urea Nitrogen 15, Creatinine 0.8, Estimat Glomerular Filtration Rate > 60, Glucose Level 98, Calcium Level 9.1, Total Bilirubin 0.2, Aspartate Amino Transf (AST/SGOT) 29, Alanine Aminotransferase ( ALT/SGPT) 119H, Alkaline Phosphatase 159H, Total Protein 7.2, Albumin 2.8L, Globulin 4.4, Albumin/Globulin Ratio 0.6L Height (Feet): 5 Height (Inches): 2.00 Weight (Pounds): 171 General Appearance: no apparent distress Objective No change Valdez Christian MD Sep 30, 2019 11:28
--- NOTE | 2019-09-30 12:00 | Internal Med Progress Note ---
Subjective Date of Service: Sep 30, 2019 Physician Name JessicaRavi Attending Physician Sheldon Webster MD Current Medications Medications (Trade) Dose Ordered Sig/Jasiel Route PRN Reason Start Time Stop Time Status Last Admin Dose Admin Acetaminophen (Tylenol) 650 mg Q4H PRN ORAL FEVER 09/25/19 13:30 10/25/19 13:29 Acetaminophen/ Hydrocodone Bitart ([place] 10/325) 1 tab Q4H PRN ORAL Severe Pain (Pain Scale 7-10) 09/25/19 13:30 10/02/19 13:29 09/29/19 20:13 Acetaminophen/ Hydrocodone Bitart ([place] 5/325) 1 tab Q4H PRN ORAL Moderate Pain (Pain Scale 4-6) 09/25/19 13:30 10/02/19 13:29 09/30/19 05:09 Docusate Sodium (Colace) 100 mg THREE TIMES A DAY ORAL 09/26/19 18:30 10/27/19 08:59 09/30/19 08:08 Heparin Sodium (Porcine) (Heparin 5000 units/ml) 5,000 units EVERY 12 HOURS SUBQ 09/22/19 09:00 11/06/19 08:59 09/30/19 08:11 Magnesium Hydroxide (Mom) 30 ml BIDPRN PRN ORAL Constipation 09/25/19 13:30 10/25/19 13:29 Nitroglycerin (Ntg) 0.4 mg Every 5 Minutes PRN SL Prn Chest Pain 09/22/19 00:45 10/22/19 00:44 Ondansetron HCl (Zofran) 4 mg Q6H PRN IVP Nausea & Vomiting 09/25/19 13:30 10/25/19 13:29 Pantoprazole (Protonix) 40 mg DAILY ORAL 09/28/19 09:00 10/26/19 20:59 09/30/19 08:08 Piperacillin Sod/ Tazobactam Sod 3.375 gm/Sodium Chloride 110 ml @ 27.5 mls/hr Q8H IVPB 09/27/19 20:00 10/04/19 19:59 09/30/19 11:40 Polyethylene Glycol (Miralax) 17 gm DAILYPRN PRN ORAL Constipation 09/25/19 13:45 10/22/19 00:44 Sennosides (Senokot) 8.6 mg BIDPRN PRN ORAL Constipation 09/25/19 13:30 10/25/19 13:29 Temazepam (RestoriL) 7.5 mg DAILYPRN PRN ORAL Insomnia 09/25/19 13:30 10/02/19 13:29 Allergies: Coded Allergies: No Known Allergies (Unverified , 09/21/19) ROS Limited/Unobtainable: No Constitutional: Reports: no symptoms HEENT: Reports: no symptoms Cardiovascular: Reports: no symptoms Respiratory: Reports: no symptoms Gastrointestinal/Abdominal: Reports: no symptoms Genitourinary: Reports: no symptoms Neurologic/Psychiatric: Reports: no symptoms Subjective 39 YO M admitted with right buttock abscess and cellulitis perineum. Cover for Int Med-DR Webster. S/P incision and drainage abscess 09/25/19 Objective Last Vital Signs Date Time Temp Pulse Resp B/P (MAP) Pulse Ox O2 Delivery O2 Flow Rate FiO2 09/30/19 11:25 98.2 78 20 109/66 (80) 94 09/30/19 09:00 Room Air 09/26/19 07:00 21 09/25/19 13:45 3 Laboratory Tests Test 09/30/19 07:18 White Blood Count 7.3 K/UL (4.8-10.8) Red Blood Count 4.52 M/UL (4.70-6.10) L Hemoglobin 14.2 G/DL (14.2-18.0) Hematocrit 42.0 % (42.0-52.0) Mean Corpuscular Volume 93 FL (80-99) Mean Corpuscular Hemoglobin 31.4 PG (27.0-31.0) H Mean Corpuscular Hemoglobin Concent 33.7 G/DL (32.0-36.0) Red Cell Distribution Width 11.3 % (11.6-14.8) L Platelet Count 430 K/UL (150-450) Mean Platelet Volume 5.1 FL (6.5-10.1) L Neutrophils (%) (Auto) 62.8 % (45.0-75.0) Lymphocytes (%) (Auto) 27.3 % (20.0-45.0) Monocytes (%) (Auto) 7.0 % (1.0-10.0) Eosinophils (%) (Auto) 1.7 % (0.0-3.0) Basophils (%) (Auto) 1.2 % (0.0-2.0) Sodium Level 138 MMOL/L (136-145) Potassium Level 4.3 MMOL/L (3.5-5.1) Chloride Level 104 MMOL/L (98-107) Carbon Dioxide Level 27 MMOL/L (21-32) Anion Gap 7 mmol/L (5-15) Blood Urea Nitrogen 15 mg/dL (7-18) Creatinine 0.8 MG/DL (0.55-1.30) Estimat Glomerular Filtration Rate > 60 mL/min (>60) Glucose Level 98 MG/DL (74-106) Calcium Level 9.1 MG/DL (8.5-10.1) Total Bilirubin 0.2 MG/DL (0.2-1.0) Aspartate Amino Transf (AST/SGOT) 29 U/L (15-37) Alanine Aminotransferase (ALT/SGPT) 119 U/L (12-78) H Alkaline Phosphatase 159 U/L (46-116) H Total Protein 7.2 G/DL (6.4-8.2) Albumin 2.8 G/DL (3.4-5.0) L Globulin 4.4 g/dL Albumin/Globulin Ratio 0.6 (1.0-2.7) L Intake and Output 09/29/19 09/30/19 19:00 07:00 Intake Total 900 ml 267.5 ml Balance 900 ml 267.5 ml Intake Oral 900 ml 240 ml IV Total 27.5 ml # Voids 5 2 Objective PHYSICAL EXAMINATION: GENERAL: The patient is awake and responsive, in no acute distress. HEAD AND NECK EXAMINATION: Pupils are equal and reactive to light. Extraocular movements intact. Neck was supple. No JVD. LUNGS: Clear. No wheezing or rales. HEART: S1, S2. Regular rhythm. No gallops. ABDOMEN: Soft and nontender. Mildly obese. EXTREMITIES: No cyanosis, clubbing, or edema. PELVIC: The patient has right buttock area drainage abscess as well as scrotum was erythema and edematous. NEUROLOGIC: PULPER OPERATOR II through XII are grossly normal. The patient moving all extremities. Gait is intact. Assessment/Plan Problem List: (1) Leukocytosis Assessment & Plan: Due to abscess/cellulitis; continue antibiotics per ID (2) Cellulitis, perineum Assessment & Plan: S/P linezolid, flagyl and cefepime; start zosyn per ID=Dr Marrufo. discharge on oral augmentin for 14 days total (3) Abscess of buttock, right Assessment & Plan: S/P Incision and drainage 09/25/19. See surgery note=Dr Owens (4) Perirectal abscess (5) Abscess, perineum (6) Elevated liver enzymes Assessment & Plan: Improving. Abdominal ultrasound=essentially normal. GI=Dr Butts Assessment/Plan Discharge home today with oral augmentin Ravi Lopez MD Sep 30, 2019 12:00
--- NOTE | 2019-09-30 15:02 | Surgery Progress Note ---
Surgery Progress Note Subjective Procedure Performed incision and drainage of perirectal / perineal abscess Symptoms: improved, tolerating diet, voiding well, passing flatus, pain decreased Objective Last 24 Hour Vital Signs Date Time Temp Pulse Resp B/P (MAP) Pulse Ox O2 Delivery O2 Flow Rate FiO2 09/30/19 11:25 98.2 78 20 109/66 (80) 94 09/30/19 09:00 Room Air 09/30/19 08:00 97.9 85 20 127/72 (90) 99 09/30/19 04:00 97.8 65 18 109/65 (80) 98 09/29/19 23:50 97.9 68 18 107/61 (76) 98 09/29/19 21:00 Room Air 09/29/19 20:00 98.2 68 18 113/67 (82) 98 09/29/19 16:00 98.2 66 18 109/71 (84) 98 I&O Intake and Output 09/29/19 09/30/19 19:00 07:00 Intake Total 900 ml 267.5 ml Balance 900 ml 267.5 ml Intake Oral 900 ml 240 ml IV Total 27.5 ml # Voids 5 2 Dressing: saturated Wound: clean Drains: dewey Cardiovascular: RSR Respiratory: decreased breath sounds Abdomen: soft, non-tender, present bowel sounds Extremities: no tenderness, no cyanosis Laboratory Tests Test 09/30/19 07:18 White Blood Count 7.3 K/UL (4.8-10.8) Red Blood Count 4.52 M/UL (4.70-6.10) L Hemoglobin 14.2 G/DL (14.2-18.0) Hematocrit 42.0 % (42.0-52.0) Mean Corpuscular Volume 93 FL (80-99) Mean Corpuscular Hemoglobin 31.4 PG (27.0-31.0) H Mean Corpuscular Hemoglobin Concent 33.7 G/DL (32.0-36.0) Red Cell Distribution Width 11.3 % (11.6-14.8) L Platelet Count 430 K/UL (150-450) Mean Platelet Volume 5.1 FL (6.5-10.1) L Neutrophils (%) (Auto) 62.8 % (45.0-75.0) Lymphocytes (%) (Auto) 27.3 % (20.0-45.0) Monocytes (%) (Auto) 7.0 % (1.0-10.0) Eosinophils (%) (Auto) 1.7 % (0.0-3.0) Basophils (%) (Auto) 1.2 % (0.0-2.0) Sodium Level 138 MMOL/L (136-145) Potassium Level 4.3 MMOL/L (3.5-5.1) Chloride Level 104 MMOL/L (98-107) Carbon Dioxide Level 27 MMOL/L (21-32) Anion Gap 7 mmol/L (5-15) Blood Urea Nitrogen 15 mg/dL (7-18) Creatinine 0.8 MG/DL (0.55-1.30) Estimat Glomerular Filtration Rate > 60 mL/min (>60) Glucose Level 98 MG/DL (74-106) Calcium Level 9.1 MG/DL (8.5-10.1) Total Bilirubin 0.2 MG/DL (0.2-1.0) Aspartate Amino Transf (AST/SGOT) 29 U/L (15-37) Alanine Aminotransferase (ALT/SGPT) 119 U/L (12-78) H Alkaline Phosphatase 159 U/L (46-116) H Total Protein 7.2 G/DL (6.4-8.2) Albumin 2.8 G/DL (3.4-5.0) L Globulin 4.4 g/dL Albumin/Globulin Ratio 0.6 (1.0-2.7) L Plan Problems: (1) Sepsis Assessment & Plan: Patient presents with abnormal labs, leukocytosis, scrotal cellulitis perineal cellulitis active infection. On evaluation at bedside patient continues to have packing left from his I&D which was not removed or cared for since incision and drainage. He states is very painful feels are comfortable. Packing dressings were removed by myself. No purulent drainage noted. Some cellulitis and edema around the perineum noted. Likely infectious source is this buttock abscess that is now perineal cellulitis as well. The CT was reviewed and gas identified but this is not seem like a Mary's gangrene or other severe process as it seems like he had a perirectal abscess that was drained and adequately furthermore placed on care plan with packing and dressings which have not been completed since. Now it is worsened. Will need to monitor closely. IV antibiotics. IV fluids. Discussed care plan with patient. Unfortunately he failed outpatient management and now requires inpatient care plan. May proceed with a larger incision and drainage if does not improve over the next 24 hours. Will monitor closely. Thank you for let me participate in patient's care worsening OR for exploration I&D s/p I&D dewey in place dressings changed cont abx trend labs will monitor shower today dressing changes iv abx plan remove dewey and d/c home (2) Abscess of buttock, right Assessment & Plan: Findings: There is considerable edema of the skin of the scrotum. This also extends into the penile shaft. There is infiltration of the pubic and suprapubic subcutaneous fat as well. Numerous gas bubbles are seen within the perineum, extending from the scrotum and to the posterior perineum. There is likewise edema of the surrounding skin. No discrete fluid collections are demonstrated. Dense material is seen associated with the air bubbles in the posterior perineum. This may be packing material related to prior incision and drainage as this appears to be deep to a superficial skin defect. A few gas bubbles are seen in the bilateral gluteus cristiano musculature. The bones are unremarkable. The pelvic viscera are unremarkable. Impression: Considerable edema of the scrotal wall, penile shaft, and superficial perineum. Given stated clinical history, likely indicates cellulitis Considerable gas within the perineum and anterior inferior right pubic region. This may be related to prior incision and drainage, but given that it extends well beyond the area of apparent incision extent the possibility of infection with a gas- forming organism should also be considered. Bilateral gluteal gas bubbles. May be related to recent injections, but the possibility of infectious process in this location should also be considered. Jerson Owens Sep 30, 2019 15:02
[2019-09-30] MEDS ORDERED: NORCO 5-325 TA1 EAC1 ORAL (15:32)
[2019-09-30 16:00] VITALS: BP 109/60
--- NOTE | 2019-09-30 16:49 | NUR ---
NURSE NOTES: PT WAS DISCHARGED HOME IN STABLE CONDITION. VSS AND IV ACCESS DISCONTINUED. PER DR SANDY, PT TO FOLLOW UP OUTPATIENT IN A NEARBY CLINIC BECAUSE MD'S OFFICE IS CLOSED. RN EDUCATED ON CARE OF SURGICAL SITE AND PROVIDED WITH WOUND CARE SUPPLIES UNTIL PT CAN FOLLOW UP WITH A CLINIC. PT EDUCATED ON CLEAN PROCEDURE AND S/S INFECTION. RN EDUCATED PT TO MONITOR FOR S/S INFECTION AND FOLLOW UP IMMEDIATELY WITH ER OR MD IF S/S INFECTION OCCURS. PT VERBALIZED UNDERSTANDING. PT EDUCATED ON PRESCRIPTIONS FOR AUGMENTIN AND NORCO. PT VERBALIZED UNDERSTANDING. PT WAS PROVIDED WITH OFFICE NUMBER OF DR MCGARRY AND DR SANDY FOR ANY QUESTIONS. PT WAS PICKED UP BY .
--- NOTE | 2019-10-02 09:46 | Discharge Summary ---
Discharge Summary Discharge Summary _ DATE OF ADMISSION: 09/21/2019 DATE OF DISCHARGE: 09/30/2019 DISCHARGED BY: Dr. Webster REASON FOR ADMISSION: 39 years old male, who denied any past medical surgical history , presented to hospital due to scrotal and perianal pain. Patient apparently about a week ago went to outside clinic for evaluation. Patient was placed on antibiotics, however symptoms got progressively worse . Patient continued to have worsening pain in the buttock area, and subsequently undergone incision and drainage at the clinic . However, patient was advised to come to emergency room for further evaluation and management. Shortly after initial evaluation in emergency room patient was noted to have significant leukocytosis WBC 24.9. CT scan of the pelvis revealed considerable edema of the scrotal wall, penile shaft, and superficial perineal, likely indicative of cellulitis. Considerable gas within the perineum and anterior inferior right pubic region , possibly related to prior incision and drainage, however given the extension well beyond the area of apparent incision extent , the possibility of infection should be considered. Patient subsequently admitted to the hospital with right buttock abscess and perineal infection. CONSULTANTS: surgery Dr. Owens unemployment specialist Dr. Thomas ID specialist Dr. Marrufo GI specialist Dr. Butts surfboard designer Dr. Christian [facility] COURSE: Patient started on broad-spectrum antibiotics. Pain management was addressed as needed. DVT prophylaxis provided. Patient subsequently undergone incision and drainage of perirectal and perineal abscess. Blood cultures were negative. Initial wound culture showed staph coagulase negative ,Enterococcus faecalis and Enterococcus avium. Perioperative wound culture revealed coagulase negative staph and Enterococcus avium. Antibiotic continued as per ID specialist recommendation . Leukocytosis was trending down , no fevers. Patient was transitioned to Augmentin upon discharge to complete the course as outpatient. Bowel regimen instituted. Wound care provided as per surgeon recommendation. Chest x-ray revealed no acute cardiopulmonary pathology. CT of the chest revealed mild left basilar atelectasis , but no consolidating infiltrates were identified. Noted elevated LFT . Hepatitis panel was negative. Abdominal ultrasound was unremarkable. LFTs trending down . GI prophylaxis provided. Patient initially was on IV hydration . Renal parameters and electrolytes were closely monitored, electrolytes corrected as needed . Kin drain was removed. Patient was instructed on wound care by surgeon. Patient was able to provide a return demonstration. Patient stated, that his will help with wound care. Wound care supplies provided. Patient was recommended to establish a primary care provider and follow-up with him. Patient clinically stabilized and was ready for discharge home . FINAL DIAGNOSES: Sepsis Right buttock abscess/perirectal perineal abscess Status post incision and drainage of perirectal and perineal abscess Elevated liver enzyme Electrolyte imbalance DISCHARGE MEDICATIONS: See Medication Reconciliation list. DISCHARGE INSTRUCTIONS: Patient was discharged home. Patient was advised to establish a primary care provider and follow-up with him in 1 week. I have been assigned to dictate discharge summary for this account. I was not involved in the patient's management. Martine Anand NP Oct 02, 2019 09:46
== END 2019-09-30 16:52 | disposition home or self-care (01) | DRG 710 ==
LOC: EMR 22:00 → 4E 22:48 → EDBEDREQ 22:53
PROC: 0W9M00Z Drainage of Male Perineum with Drainage Device, Open Approach (ICD-10-PCS; 2019-09-25)
PROC: 0D9P00Z Drainage of Rectum with Drainage Device, Open Approach (ICD-10-PCS; principal; 2019-09-25 11:30)
DX: A41.9 Sepsis, unspecified organism (principal); L03.315 Cellulitis of perineum; L02.31 Cutaneous abscess of buttock; E66.9 Obesity, unspecified; Z68.31 Body mass index [BMI] 31.0-31.9, adult; R74.8 Abnormal levels of other serum enzymes; E87.5 Hyperkalemia; E87.1 Hypo-osmolality and hyponatremia
CPT/HCPCS: 36415; 71045; 71250; 72193; 76700; 80048; 80053; 80061; 80202; 81001; 82977; 83036; 83605; 83615; 83735; 83880; 84100; 84443; 84550; 85007; 85025; 85610; 85651; 85730; 86140; 86705; 86709; 86803; 87040; 87070; 87081; 87181; 87205; 87340; 94003; 94150; 94664; 96365; 96366; 96368; 96375; 99285; A4246; J2405